=== PATIENT | male | born 1960 | race Caucasian/White ===

== ENCOUNTER 2020-08-29 07:33 | Day surgery (SDC) | payer OTHER, SELFPAY ==
--- NOTE | 2020-08-28 09:02 | HO.ANESPROP2 ---
Documented by User: Fatmata Chow 08/28/20 13:36 HPI - Anesthesia Eval Consult details Narrative: 59yo M for Colonoscopy COUNTS INCLUDE 234 BEDS AT THE [facility] Past Medical History Medical History Hearing loss Vertigo Surgical History Surgical History (Updated 08/29/20 @ 08:41 by Yahaira Thrasher) Status post colonoscopy Social History Social History (Updated 08/28/20 @ 11:59 by Mary Smith) Smoking Status: Never smoker Second Hand Smoke Exposure: No Use of substances other than those prescribed or required for medical reasons: No Advance Directives: No Advance Directives Information Provided: Yes Advance Directives on File: No Meds Allergies Allergy/AdvReac Type Severity Reaction Status Date / Time No Known Allergies Allergy Verified 08/28/20 11:58 Home Medications Medication Instructions Recorded Confirmed Type meclizine 1 tab PO TID PRN 08/28/20 08/28/20 History Exam Exam Date and Time: August 28, 2020901 Assessment and Plan Assessment Anesthesia Assessment: Chart Reviewed Documented by User: Yahaira Thrasher 08/29/20 08:47 COUNTS INCLUDE 234 BEDS AT THE [facility] Past Medical History Medical History Hearing loss Vertigo Family History Family history of problems with anesthesia: No Surgical History Surgical History (Updated 08/29/20 @ 08:41 by Yahaira Thrasher) Status post colonoscopy History of Problems with Anesthesia: No Social History Social History (Updated 08/28/20 @ 11:59 by Mary Smith) Smoking Status: Never smoker Second Hand Smoke Exposure: No Use of substances other than those prescribed or required for medical reasons: No Advance Directives: No Advance Directives Information Provided: Yes Advance Directives on File: No Meds Allergies Allergy/AdvReac Type Severity Reaction Status Date / Time No Known Allergies Allergy Verified 08/28/20 11:58 Home Medications Medication Instructions Recorded Confirmed Type meclizine 1 tab PO TID PRN 08/28/20 08/28/20 History Exam Height,Weight and Vital Signs: Vital Signs Temp Pulse Resp BP Pulse Ox 08/29/20 08:07 97.8 F 72 16 122/89 97 Airway Mallampati Class: II TM Dist: >3cm Loose/Missing/Broken Teeth: No (Crowns intact) Heart: RRR Lungs: CTAB Assessment and Plan Assessment Anesthesia Assessment: Anesthesia Plan Discussed and Chart Reviewed Final Anesthetic Review NPO: Yes ASA Class: II Final Preanesthetic Review: No Changes in Pt Med Stat, Meds/Allgs Chart Reviewed, Consent Obtained/Reviewed and Anes Risks/Benef Reviewed Patient Risk: Low Procedure Risk: Low Anesthetic Plan Anesthetic Plan: MAC: Disposition: Standard PACU
[2020-08-28 12:00] VITALS: BMI 29.7
--- NOTE | 2020-08-29 07:47 | P.HPSUR_ITS ---
Pre-Procedural Eval Section B Chief Complaint: SCREENING Relevant Family History (Specify if Yes): No Relevant Social History: None Present Medications: see Short Stay Collaborative assessment Medical History: Significant History (vertigo,hearing loss) History of Previous Operations: No relevant previous surgery Allergies: Allergies Allergy/AdvReac Type Severity Reaction Status Date / Time No Known Allergies Allergy Verified 08/28/20 11:58 Review of Systems Sugical H&P ROS: Negative: Constitution, Cardiovascular, Respiratory, Neurological, Psychiatric, Hem-Onc, Allergic/Immunologic, Gastrointestinal, Genitourinary, Musculoskeletal, Integumentary, Endocrine and Eyes/Ears/Nose/T hroat Exam Surgical H&P Exam: Normal: HEENT, Normal: Heart, Normal: Lungs, Normal: Extremities, Normal: Abdomen, Normal: Skin and Normal: Neurological Plan Diagnosis/Plan: Unchanged Patient has been examined and remains a candidate for the planned procedure
[2020-08-29] MEDS: Lactated Ringers 1,000 ML 100 ML IVCONT (08:02)
[2020-08-29 08:07] VITALS: BP 122/89; PULSE 72; RESP 16; TEMP 36.6; O2SAT 97
--- NOTE | 2020-08-29 08:55 | PM.OP ---
Brief Operative Note Date of Service: 08/29/20 Pre-op diagnosis: colon screen Post-op diagnosis: same Procedure: see op note Surgeon: Magdalena Em MD Anesthesia: MAC Estimated blood loss (mL): 0 Condition: stable Disposition: PACU
--- NOTE | 2020-08-29 08:56 | W.PM.OPN ---
Operative Note Operative Note Date of Service: 08/29/20 Narrative: Operative Information Procedure Description: Colonoscopy COLONOSCOPY Instrument: Olympus variable stiffness pediatric scope 190L Colonoscopy Monitoring: Vital signs and clinical assessment, continuous EKG monitoring, Pulse oximetry, Carbon Dioxide monitoring and blood pressure monitoring were done throughout the procedure. Colon withdrawal time was 7 minutes. Procedure: The patient was placed in the left lateral decubitis position and pre-procedure medications were administered. After a digital rectal examination of the ano-rectum, the video colonoscope was inserted into the rectum and advanced through the colon to the cecum/TI. The colonoscope was slowly withdrawn in a retrograde panoramic fashion and the colon mucosa was carefully examined including a retroflexed view of the rectum. Findings and interventions are described below. Procedure Difficulty:easy Findings: Terminal Ileum-normal Cecum:normal Ascending Colon: normal Transverse Colon -normal Descending Colon:normal Sigmoid Colon: normal Rectum: Retroflexion with small, mildly inflammed, internal hemorrhoids, grade 1 Anorectum - normal Colon preparation: [place] Bowel Preparation Scale Right colon; 3 Transverse colon: 3 Left colon; 3 (0 = Unprepared colon segment with mucosa not seen due to solid stool that cannot be cleared. 1 = Portion of mucosa of the colon segment seen, but other areas of the colon segment not well seen due to staining, residual stool and/or opaque liquid. 2 = Minor amount of residual staining, small fragments of stool and/or opaque liquid, but mucosa of colon segment seen well. 3 = Entire mucosa of colon segment seen well with no residual staining, small fragments of stool or opaque liquid) Impression and Post Procedure Diagnosis: internal hemorrhoids Plan: High fiber diet leaflet Avoid straining at stool, epsom salts and sitz bath, anusol supps or cream prn Repeat Colonoscopy in 10 years or earlier if clinically indicated Above findings were reviewed with the patient and relevant handouts were provided if indicated.
[2020-08-29 09:00] VITALS: BP 108/77; PULSE 72; RESP 16; TEMP 36.2; O2SAT 98
[2020-08-29 09:15] VITALS: BP 109/78; PULSE 69; RESP 16; TEMP 36.2; O2SAT 96
--- NOTE | 2020-08-29 09:40 | HO.POSTANES ---
Documented by User: Fatmata Chow 08/29/20 09:41 Post Anesthesia Evaluation Post Anesthesia Evaluation Vital Signs: Vital Signs Temp Pulse Resp BP Pulse Ox 08/29/20 09:15 97.2 F 69 16 109/78 96 08/29/20 09:00 97.2 F 72 16 108/77 98 08/29/20 08:07 97.8 F 72 16 122/89 97 Anesthesia: Monitored Mental Status: Awake Pain Control: Satisfactory Nausea/Vomiting: None Hydration: Adequate Anesthesia-Related Issues: No Anes. Related Issues
== END 2020-08-29 09:45 | disposition home or self-care (01) ==
PROVIDERS: Visit Provider Internal Medicine Gastroenterology
PROC: 0DJD8ZZ Inspection of Lower Intestinal Tract, Via Natural or Artificial Opening Endoscopic (ICD-10-PCS; CPT 45378; principal; 2020-08-29 08:30)
DX: Z12.11 Encounter for screening for malignant neoplasm of colon (principal); K64.0 First degree hemorrhoids
CPT/HCPCS: G0121

== ENCOUNTER → 2020-09-05 10:52 | Outpatient (BNVA) | payer OTHER, SELFPAY | PROVIDERS: PCP Nurse Practitioner Family; Visit Provider Physician Assistant | DX: K64.8 Other hemorrhoids (principal) | CPT/HCPCS: Q3014 ==

== ENCOUNTER → 2021-02-14 13:57 | Outpatient (BNVA) | payer SELFPAY | PROVIDERS: PCP Nurse Practitioner Family; Visit Provider Internal Medicine | DX: Z02.79 Encounter for issue of other medical certificate (principal) ==

== ENCOUNTER 2022-06-12 06:27 | Outpatient (REF) | payer OTHER, SELFPAY ==
[2022-06-12 11:13] LABS: MANUAL DIFF FLAG NO
[2022-06-12 11:23] LABS: Appearance Urine Turbid; Color Urine Yellow; Glucose Urine UA Negative (Negative); Leukocyte Esterase Urine Negative (Negative); Nitrite Urine Negative (Negative); PH 5.5 (5.0-9.0); Urine Blood Negative (Negative); Urine Ketones Negative (Negative); Urine Protein Negative (Neg-Trace)
[2022-06-12 11:25] LABS: Basophils Percent Auto 0.8 % (0-2); Eosinophils Absolute Auto 0.4 X10*3/uL (0.0-0.4); Eosinophils Percent Auto 7.5 % (0-4); Hematocrit 42.5 % (42.0-52.0); Hemoglobin 14.9 g/dl (14.0-18.0); Imm Gran Abs Auto 0.01 X10*3/uL (0.00-0.03); Imm Gran Pct Auto 0.2 % (0.0-0.4); Lymphocytes Absolute Auto 1.3 X10*3/uL (1.2-4.9); Lymphocytes Percent Auto 25.3 % (20-40); Mean Corpuscular HGB Conc 35.1 g/dl (31.0-36.0); Mean Corpuscular Hemoglobin 30.5 pg (27.0-33.0); Mean Corpuscular Volume 86.9 fL (80.0-98.0); Mean Platelet Volume 9.2 fL (9.4-12.4); Monocytes Absolute Auto 0.4 X10*3/uL (0.1-1.2); Monocytes Percent Auto 8.4 % (2-11); Neutrophils Absolute Auto 2.9 x10*3/uL (2.0-8.3); Neutrophils Percent Auto 57.8 % (45-73); Platelet Count 202 X10*3/uL (160-400); Red Blood Count 4.89 X10*6/uL (4.60-5.80); Red Cell Distribution Width 12.6 % (11.0-16.0); White Blood Count 5.1 X10*3/uL (4.8-10.8)
[2022-06-12 11:51] LABS: Alanine Aminotransferase 58 U/L (0-40); Albumin Level 4.4 g/dL (3.5-5.0); Alkaline Phosphatase 68 U/L (39-117); Anion Gap 14 (12-20); Aspartate Amino Transferase 44 U/L (5-37); Bilirubin Total 0.7 mg/dL (0.0-1.0); Blood Urea Nitrogen 20 mg/dL (9-16); Calcium 9.5 mg/dL (8.4-10.2); Carbon Dioxide 27 mmol/L (22-29); Chloride 103 mmol/L (96-108); Cholesterol 237 mg/dL; Estimated Glomerular Filt Rate > 60; Glucose Fasting 109 mg/dL (60-99); HDL Cholesterol 47 mg/dL; LDL Cholesterol Calculated 165 mg/dl; Potassium 3.9 mmol/L (3.3-5.1); Sodium 140 mmol/L (135-145); Total Protein 6.8 g/dL (6.5-8.0); Triglycerides 126 mg/dL
[2022-06-12 12:16] LABS: Prostate Specific Antigen Scr 0.93 ng/mL (<0.05-4.0); TSH reflex Free T4 2.56 uIU/mL (0.32-4.0)
== END 2022-06-12 06:28 | disposition home or self-care (01) ==
LOC: HO.HMGCLDS 06:27
PROVIDERS: PCP Nurse Practitioner Family; Visit Provider Nurse Practitioner Family
DX: Z12.5 Encounter for screening for malignant neoplasm of prostate (principal); I10 Essential (primary) hypertension
CPT/HCPCS: 36415; 80053; 80061; 81003; 84153; 84443; 85025

== ENCOUNTER 2022-06-18 06:01 | Outpatient (REF) | payer OTHER, SELFPAY ==
[2022-06-18 11:50] LABS: Cholesterol 228 mg/dL; HDL Cholesterol 44 mg/dL; LDL Cholesterol Calculated 158 mg/dl; Triglycerides 131 mg/dL
[2022-06-18 12:05] LABS: HBS Num1 1.29 mIU/mL (0-7.99); HBc Num1 0.15 S/CO (0.00-0.79); HBsAGNum1 0.17 S/CO (0.00-0.99); Hepatitis A Antibody IgM 0.46 Index (0-0.79); Hepatitis B Core Antibody Nonreactive (Nonreactive); Hepatitis B Surface Antigen Negative (Negative); ~HepC Num1 0.07 S/CO (0.00-0.79); ~Hepatitis A Antibody IgM Nonreactive (Nonreactive); ~Hepatitis B Surface Antibody NONREACTIVE (Nonreactive); ~Hepatitis C Antibody Nonreactive (Nonreactive)
== END 2022-06-18 06:02 | disposition home or self-care (01) ==
LOC: HO.HMGCLDS 06:01
PROVIDERS: PCP Nurse Practitioner Family; Visit Provider Nurse Practitioner Family
DX: R74.8 Abnormal levels of other serum enzymes (principal); E78.5 Hyperlipidemia, unspecified
CPT/HCPCS: 36415; 80061; 86704; 86706; 86709; 86803; 87340

== ENCOUNTER 2022-07-02 08:51 | Outpatient (REF) | payer OTHER, SELFPAY ==
--- NOTE | ~2022-07-02 | US_ITS ---
EXAMINATION: US ABDOMEN COMPLETE CLINICAL INFORMATION: Abnormal levels of other serum enzymes. COMPARISON: None TECHNIQUE: Real-time imaging of the abdominal viscera. FINDINGS: PANCREAS: Normal. ABDOMINAL AORTA: The proximal, mid, and distal segments are normal in caliber. INFERIOR VENA CAVA: Visualized portions are normal. LIVER: The liver is normal in size. The liver contour is normal. Liver echotexture is increased suggestive of fatty infiltration. There are hypoechoic areas adjacent to the gallbladder, characteristic location of focal fatty sparing. There is a 1.8 x 1.3 x 1.4 cm cyst in the left lobe of the liver. There is an irregularly-shaped hypoechoic area in the right lobe of the liver measuring 1.3 x 0.7 x 1 cm. It is uncertain whether this represents an atypical location or appearance of focal fatty sparing or represents liver lesion. There is no intrahepatic biliary duct dilatation seen. GALLBLADDER: Normal. The gallbladder is physiologically distended without evidence of stones, sludge, polyps, wall thickening or pericholecystic fluid. COMMON BILE DUCT: Normal in caliber measuring 0.4 cm in diameter. RIGHT KIDNEY: 1.6 cm cyst in the lower pole. No hydronephrosis or renal calculi. The kidney measures 13.1 cm in maximum dimension. LEFT KIDNEY: 2 cysts measuring 3.2 x 2.6 x 2.5 cm in the midpole and 1 cm in the lower pole. No hydronephrosis or renal calculi. The kidney measures 11.0 cm in maximum dimension. SPLEEN: Normal. The spleen measures 12.1 cm in maximum dimension. FREE FLUID: None. US/US abdomen complete IMPRESSION: Echogenic liver suggestive of fatty infiltration. 1.3 x 0.7 x 1 cm irregularly-shaped hypoechoic area in the right lobe, question atypical location of focal fatty sparing versus liver lesion. 1.8 x 1.3 x 1.4 cm left lobe liver cyst. This could be better evaluated with liver MRI. Bilateral renal cysts.
== END 2022-07-02 08:52 | disposition home or self-care (01) ==
LOC: HO.HMGCX 08:51
PROVIDERS: PCP Nurse Practitioner Family; Visit Provider Nurse Practitioner Family
DX: R74.8 Abnormal levels of other serum enzymes (principal); K76.9 Liver disease, unspecified
CPT/HCPCS: 76700

== ENCOUNTER 2022-07-30 08:05 | Outpatient (REF) | payer OTHER, SELFPAY ==
--- NOTE | ~2022-07-30 | MR_ITS ---
EXAMINATION: MR ABDOMEN WITHOUT AND WITH CONTRAST CLINICAL INFORMATION: Liver disease. COMPARISON: Previous abdominal ultrasound June 2022. TECHNIQUE: MR abdomen was performed without and with use of 10 mL intravenous Gadavist gadolinium contrast. Postcontrast images are performed in multiphase dynamic sequences. Imaging was performed in 3 planes. FINDINGS: LUNG BASES: The visualized lung bases are unremarkable. LIVER, GALLBLADDER, AND BILIARY TREE: The liver is upper normal in size, right lobe measuring 20 cm in length. The liver is normal in contour. There is heterogeneous signal loss in the liver on out of phase sequences suggestive of areas of fatty infiltration. There are several small cysts in the liver, largest measuring 1 cm in the left lobe. There is question of a small area of increased enhancement or enhancing lesion in the anterior segment of the right lobe of the liver measuring 4 to 5 mm, for example axial image 61 postcontrast series 101 and 102, possibly larger on noncontrast sequence measuring 1.3 cm. This is appreciated as an area of increased signal on out of phase sequences. This is not reliably identified on other precontrast sequences, arterial phase postcontrast or delayed phase postcontrast sequences. No other focal liver lesion. Normal gallbladder. No biliary duct dilatation. PANCREAS: Unremarkable. SPLEEN: Normal. ADRENAL GLANDS: Normal. KIDNEYS AND URETERS: The kidneys are normal in size, shape, and enhance symmetrically. There are bilateral renal simple cysts. The largest measures 3 cm in the left kidney. No hydronephrosis. No perinephric stranding. GASTROINTESTINAL TRACT: No bowel obstruction. No ascites or fluid collection. ABDOMINAL WALL: Small umbilical hernia containing fat. LYMPH NODES: No lymphadenopathy. VASCULAR: Unremarkable. OSSEOUS STRUCTURES: Marrow signal normal. MR/MR abdomen wo/w con IMPRESSION: Heterogeneous fatty infiltration of the liver. Multiple liver and bilateral renal cysts. Question focal lesion in the anterior segment of the right lobe of the liver appreciated on gradient echo out of phase precontrast sequences and some postcontrast sequences only. This is difficult to further characterize. Short-term follow-up ultrasound or MRI recommended.
== END 2022-07-30 08:06 | disposition home or self-care (01) ==
LOC: HO.MRI 08:05
PROVIDERS: Visit Provider Nurse Practitioner Family
DX: K76.9 Liver disease, unspecified (principal)
CPT/HCPCS: 74183; A9585

== ENCOUNTER → 2022-09-26 14:52 | Outpatient (BNVA) | payer OTHER, SELFPAY | PROVIDERS: PCP Nurse Practitioner Family; Visit Provider Urology | DX: N28.1 Cyst of kidney, acquired (principal) | CPT/HCPCS: 99202 ==

== ENCOUNTER 2022-12-03 06:03 | Outpatient (REF) | payer OTHER, SELFPAY ==
[2022-12-03 11:16] LABS: Appearance Urine Turbid; Color Urine Yellow; Glucose Urine UA Negative (Negative); Leukocyte Esterase Urine Negative (Negative); Nitrite Urine Negative (Negative); PH 5.5 (5.0-9.0); Specific Gravity - Urine 1.025 (1.005-1.025); Urine Blood Negative (Negative); Urine Ketones Negative (Negative); Urine Protein Negative (Neg-Trace)
[2022-12-03 11:22] LABS: MANUAL DIFF FLAG NO
[2022-12-03 11:46] LABS: Basophils Percent Auto 0.4 % (0-2); Eosinophils Absolute Auto 0.1 X10*3/uL (0.0-0.4); Hematocrit 42.6 % (42.0-52.0); Hemoglobin 14.9 g/dl (14.0-18.0); Imm Gran Abs Auto 0.01 X10*3/uL (0.00-0.03); Imm Gran Pct Auto 0.2 % (0.0-0.4); Lymphocytes Absolute Auto 1.4 X10*3/uL (1.2-4.9); Lymphocytes Percent Auto 30.5 % (20-40); Mean Corpuscular Volume 85.9 fL (80.0-98.0); Mean Platelet Volume 9.3 fL (9.4-12.4); Monocytes Absolute Auto 0.4 X10*3/uL (0.1-1.2); Monocytes Percent Auto 8.7 % (2-11); Neutrophils Absolute Auto 2.7 x10*3/uL (2.0-8.3); Neutrophils Percent Auto 57.2 % (45-73); Platelet Count 197 X10*3/uL (160-400); Red Blood Count 4.96 X10*6/uL (4.60-5.80); Red Cell Distribution Width 12.5 % (11.0-16.0); White Blood Count 4.7 X10*3/uL (4.8-10.8)
[2022-12-03 12:02] LABS: Alanine Aminotransferase 47 U/L (0-40); Albumin Level 4.2 g/dL (3.5-5.0); Alkaline Phosphatase 66 U/L (39-117); Anion Gap 11 (12-20); Aspartate Amino Transferase 28 U/L (5-37); Bilirubin Total 0.7 mg/dL (0.0-1.0); Blood Urea Nitrogen 21 mg/dL (9-16); Calcium 8.9 mg/dL (8.4-10.2); Carbon Dioxide 28 mmol/L (22-29); Chloride 106 mmol/L (96-108); Cholesterol 225 mg/dL; Estimated Glomerular Filt Rate > 60; Glucose Fasting 101 mg/dL (60-99); HDL Cholesterol 46 mg/dL; LDL Cholesterol Calculated 164 mg/dl; Sodium 141 mmol/L (135-145); Total Protein 6.4 g/dL (6.5-8.0); Triglycerides 77 mg/dL
[2022-12-03 12:07] LABS: TSH reflex Free T4 2.47 uIU/mL (0.32-4.0)
== END 2022-12-03 06:04 | disposition home or self-care (01) ==
LOC: HO.HMGCLDS 06:03
PROVIDERS: PCP Nurse Practitioner Family; Visit Provider Nurse Practitioner Family
DX: Z00.00 Encounter for general adult medical examination without abnormal findings (principal)
CPT/HCPCS: 36415; 80053; 80061; 81003; 84443; 85025

== ENCOUNTER 2022-12-03 11:16 | Outpatient (REF) | payer OTHER, SELFPAY ==
--- NOTE | ~2022-12-03 | MR_ITS ---
EXAMINATION: MRI ABDOMEN WITH AND WITHOUT CONTRAST CLINICAL INFORMATION: K76.9 - Liver disease, unspecified COMPARISON: 07/30/2022 MRI TECHNIQUE: Multiple routine MRI sequences through the abdomen were obtained on a high-field 1.5Tesla MRI. Pre-and postcontrast images with 10 mL of Gadavist intravenous contrast were obtained. This included a dynamic contrast-enhanced technique. FINDINGS: Lung bases: The visualized lung bases are unremarkable. Liver: There is mild diffuse fatty infiltration of the liver with focal fatty sparing adjacent to the gallbladder fossa. T2 bright simple appearing cysts are seen more so along the anterior subcapsular aspect of segment 2 of the liver and in the anterior aspect of segment 8. There is a subtle arterial phase enhancing 0.6 cm region in the lateral right lobe of the liver. This was seen on the prior study as well and is not significantly changed in size. There is subtle enhancement in this region seen on later phases of contrast as well. No suspicious washout identified. No new lesions appreciated Gallbladder: Gallbladder is unremarkable. No suspicious gallstones or filling defects. No gallbladder wall thickening or pericholecystic inflammatory changes. Pancreas: Pancreas is homogeneous in signal. No pancreatic ductal dilatation or obstruction. No peripancreatic inflammatory changes or fluid. Spleen: Unremarkable Adrenals: Unremarkable Kidneys: Kidneys are normal in size, shape, and signal. T2 bright nonenhancing simple appearing bilateral renal cysts are seen. No further evaluation of these cysts is needed. No suspicious renal mass lesion seen. No hydronephrosis or perinephric edema. Other: No bulky hilar or mediastinal adenopathy MR/MR abdomen wo/w con IMPRESSION: 1. Overall no significant change from the prior study. There is a nonspecific subtle 0.6 cm arterial phase enhancing region in the lateral right lobe of the liver. This is not significantly changed in size from the prior study but difficult to define more due to its tiny size. This could represent a small vascular malformation or possibly a small focal nodular hyperplasia. The relative stability since 07/30/2022 suggests a more indolent process. Continued follow-up to assure stability over time be recommended. 2. Diffuse fatty infiltration of the liver. 3. Chronic appearing changes otherwise as described above.
== END 2022-12-03 11:17 | disposition home or self-care (01) ==
LOC: HO.MRI 11:16
PROVIDERS: PCP Nurse Practitioner Family; Visit Provider Nurse Practitioner Family
DX: K76.9 Liver disease, unspecified (principal)
CPT/HCPCS: 74183; A9585

== ENCOUNTER → 2023-01-28 10:51 | Outpatient (BNVA) | payer SELFPAY | PROVIDERS: PCP Nurse Practitioner Family; Visit Provider Physician Assistant | DX: Z02.79 Encounter for issue of other medical certificate (principal) ==

== ENCOUNTER 2023-04-16 12:19 | Outpatient (AMB) | payer OTHER, SELFPAY ==
--- NOTE | 2023-04-16 12:23 | A.OFFVIS_ITS ---
Intake Vital Signs 04/16/23 12:24 Height 5 ft 9.5 in Weight 208 lb BMI 30.3 BP 128/77 Blood Pressure Location Lt brachial Position Sitting Pulse 98 Intake Visit Reasons: Liver disease, unspecified Intake Note: Patient follow up for liver disease and MRI results. patient cc: vomit on and off because his dizziness, denies any GI issues. 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 He says he just began med for cholesterol his biggest c/o is - ear fullness Effects his hearing-this makes him feel off uses meclizine from time to time-has upcoming appointment with ENT for further eval No GI complaints Appetite very good- normal bowels No nausea, vomiting, abdominal pain fever or chills PFSH Medical History Hearing loss Internal hemorrhoids Vertigo Surgical History Status post colonoscopy Social History Housing: House Patient Tobacco Use Status: Never used Tobacco e-Cigarette/Vaping Use: Never Used Second Hand Smoke Exposure: No Current occupational status: employed Current occupation: [employer] Cognitive needs: No Hearing needs: No Vision needs: No Review of Systems Const All systems reviewed & are unremarkable except as noted in HPI and below ENT Reports vertigo, Reports otalgia, Denies mouth lesions, Denies nasal discharge, Denies odynophagia, Denies sinus pressure, Denies sore throat and Denies throat swelling Card Denies chest pain and Denies dyspnea Resp Denies dyspnea GI Denies abdominal pain, Denies change in bowel habits, Denies heartburn and Denies odynophagia Neuro Reports vertigo Aller/Immun Denies throat swelling Physical Exam Vital Signs: Last Vital Signs Pulse 98 04/16/23 12:24 BP 128/77 04/16/23 12:24 BMI result Body Mass Index 30.3 Const General: cooperative, healthy appearing, comfortable and no acute distress Orientation/consciousness: patient oriented x3 Limitations: no limitations Resp Effort & Inspection: normal respiratory effort and able to speak in complete sentences Auscultation: clear to auscultation bilaterally Cardio Rate: regular rate Rhythm: regular rhythm Heart sounds: S1 normal heart sound present and S2 normal heart sound present Neuro General: patient oriented x3 Extrem General: Yes full ROM Psych Appearance: grossly normal and well kempt Mental Status: mental status grossly normal Speech and movement: Normal speech and movement present and Clear speech present Affect: normal affect Attitude: cooperative Thought process: Normal thought process present Thought content: Normal thought content present Insight: Good insight present (Psych) Judgement: Good judgement present (Psych) Results Reviewed Results Reviewed: 12.08.22 MR/MR abdomen wo/w con IMPRESSION: 1.? Overall no significant change from the prior study. There is a nonspecific subtle 0.6 cm arterial phase enhancing region in the lateral right lobe of the liver. This is not significantly changed in size from the prior study but difficult to define more due to its tiny size. This could represent a small vascular malformation or possibly a small focal nodular hyperplasia. The relative stability since 07/30/2022 suggests a more indolent process. Continued follow-up to assure stability over time be recommended. 2.? Diffuse fatty infiltration of the liver. 3.? Chronic appearing changes otherwise as described above. ? ALT-47 MR/MR abdomen wo/w con IMPRESSION: Heterogeneous fatty infiltration of the liver. Multiple liver and bilateral renal cysts. Question focal lesion in the anterior segment of the right lobe of the liver appreciated on gradient echo out of phase precontrast sequences and some postcontrast sequences only. This is difficult to further characterize. Short-term follow-up ultrasound or MRI recommended. ALT/AST-44/58 US/US abdomen complete IMPRESSION: Echogenic liver suggestive of fatty infiltration. 1.3 x 0.7 x 1 cm irregularly-shaped hypoechoic area in the right lobe, question atypical location of focal fatty sparing versus liver lesion. 1.8 x 1.3 x 1.4 cm left lobe liver cyst. This could be better evaluated with liver MRI. Bilateral renal cysts. Assessment & Plan Assessment & Plan (1) Fatty liver: Code(s): K76.0 - Fatty (change of) liver, not elsewhere classified (2) Elevated liver enzymes: Comment: MLC with fatty liver Continue usual medication Dietary lifestyle modification Avoid weight Keep good cholesterol and glucose control Code(s): R74.8 - Abnormal levels of other serum enzymes Plan: MLC with fatty liver Plan Await T- for imaging update labs as well in May/jun Orders: Orders Liver Fibrosis Pnl 2 Months K76.0 - Fatty (change of) liver, not elsewhere classified, R74.8 - Abnormal levels of other serum enzymes Lipid Panel 2 Months K76.0 - Fatty (change of) liver, not elsewhere classified Liver Panel 2 Months K76.0 - Fatty (change of) liver, not elsewhere classified, R74.8 - Abnormal levels of other serum enzymes Complete Blood Count Auto Diff 2 Months K76.0 - Fatty (change of) liver, not elsewhere classified, R74.8 - Abnormal levels of other serum enzymes GRAHAM Reflex Titer and Pattern 2 Months R74.01 - Elevation of levels of liver transaminase levels Patient Instructions: MLC with fatty liver Continue usual medication Dietary lifestyle modification Avoid weight Keep good cholesterol and glucose control Repeat imaging update blood work at that time as well Coding Level of Care Code New Pt Level 3 (61584) Diagnoses Fatty liver K76.0 Elevated liver enzymes R74.8 Time Spent (min) 30
[2023-04-16 12:24] VITALS: BP 128/77; PULSE 98; BMI 30.3
== END 2023-04-16 13:50 | disposition home or self-care (01) ==
PROVIDERS: PCP Nurse Practitioner Family; Visit Provider Physician Assistant
DX: K76.0 Fatty (change of) liver, not elsewhere classified (principal); R74.8 Abnormal levels of other serum enzymes
CPT/HCPCS: 99214

== ENCOUNTER → 2023-04-16 12:19 | Outpatient (BNVA) | payer OTHER, SELFPAY | PROVIDERS: PCP Nurse Practitioner Family; Visit Provider Physician Assistant | DX: K76.0 Fatty (change of) liver, not elsewhere classified (principal); R74.8 Abnormal levels of other serum enzymes | CPT/HCPCS: 99212 ==

== ENCOUNTER 2023-07-13 07:24 | Outpatient (REF) | payer OTHER, SELFPAY ==
--- NOTE | ~2023-07-13 | MR_ITS ---
EXAMINATION: MR ABDOMEN WITHOUT AND WITH CONTRAST CLINICAL INFORMATION: Follow-up liver lesion. COMPARISON: 12/03/2022 and 07/30/2022 TECHNIQUE: MR abdomen was performed without and with use of 10 mL intravenous Gadavist gadolinium contrast. Postcontrast images are performed in multiphase dynamic sequences. Imaging was performed in 3 planes. FINDINGS: LUNG BASES: The visualized lung bases are unremarkable. LIVER, GALLBLADDER, AND BILIARY TREE: The liver is normal in size and contour. Hepatic steatosis. T2 bright simple appearing cysts are seen more so along the anterior subcapsular aspect of segment 2 of the liver and in the anterior aspect of segment 8. There is a subtle arterial phase enhancing 0.6 cm focus in the lateral right lobe of the liver. This was seen on the prior studies as well and is not significantly changed in size or morphology. The focus retains contrast on later phases as well. No suspicious washout identified. No new lesions appreciated. No biliary ductal dilatation is present. The gallbladder is unremarkable with no evidence of gallbladder wall thickening, or obvious pericholecystic inflammatory changes. PANCREAS: No ductal dilatation. SPLEEN: Not enlarged. ADRENAL GLANDS: No adrenal mass. KIDNEYS AND URETERS: The kidneys are symmetric in size and enhancement. Bilateral renal cysts. No further imaging follow-up is needed. No hydronephrosis. No perinephric stranding. GASTROINTESTINAL TRACT: Imaged loops of small and large bowel are nonobstructed. LYMPH NODES: No bulky abdominal lymphadenopathy. VASCULAR: Normal caliber abdominal aorta. MR/MR abdomen wo/w con IMPRESSION: Stable 0.6 cm arterial phase enhancing region in the lateral right lobe of the liver. This could represent a perfusion anomaly or vascular malformation or perhaps a small focal nodular hyperplasia. The relative stability since 07/30/2022 suggests a more indolent process. Follow-up as clinically indicated.
[2023-07-13] MEDS: gadobutroL 10 ML VIAL IVPUSH (08:29)
== END 2023-07-13 07:25 | disposition home or self-care (01) ==
LOC: HO.MRI 07:24
PROVIDERS: PCP Nurse Practitioner Family; Visit Provider Physician Assistant
DX: K76.9 Liver disease, unspecified (principal); R74.8 Abnormal levels of other serum enzymes; K76.0 Fatty (change of) liver, not elsewhere classified
CPT/HCPCS: 74183; A9585

== ENCOUNTER 2023-07-23 08:22 | Outpatient (AMB) | payer OTHER, SELFPAY ==
--- NOTE | 2023-07-23 08:24 | MHC.PC.OV ---
Vital Signs 07/23/23 08:26 Weight 217 lb BP 110/72 Blood Pressure Location Rt brachial Position Sitting Pulse 77 Pulse Source Pulse Oximeter Pulse Oximetry (%) 100 Oxygen Delivery Method Room Air Intake Visit Reasons: 6 month follow up Allergies No Known Allergies Allergy (Verified 07/23/23 08:27) Tobacco use date assessed: 10/15/22 HPI 6 month follow up HPI Details Dyslipidemia: On rosuvastatin 5mg. Will order labs. Denies chest pain, shortness of breath, and dizziness. Pt is following up with ENT due to menieres. Pt is requesting a referral to [facility] for specific hearing aids, will refer. Pt will be trying for early shelter disability. Will gladly fill out paperwork for this. [facility] Medical History (Updated 07/23/23 @ 08:50 by ANGELA Bell) Internal hemorrhoids Vertigo Hearing loss Surgical History Status post colonoscopy Social History Housing: House Patient Tobacco Use Status: Never used Tobacco e-Cigarette/Vaping Use: Never Used Second Hand Smoke Exposure: No Current occupational status: employed Current occupation: [employer] Cognitive needs: No Hearing needs: No Vision needs: No Questionnaire Thrive Questionnaire Date Thrive assessed: 10/15/22 MILENA-7 AMB Questionnaire MILENA-7 Date MILENA - 7 assessed: 10/15/22 Source: Developed by Drs. Glen Gomez, Ana Maria Taylor, Lance Tobias and colleagues, with an educational nahomy from [employer]. Review of Systems Const Reports as per HPI Physical exam (Primary Care) Vital Signs: Last Vital Signs Pulse 77 07/23/23 08:26 BP 110/72 07/23/23 08:26 Pulse Ox 100 07/23/23 08:26 Oxygen Delivery Method Room Air 07/23/23 08:26 Tobacco/Smoking Status: Tobacco use Status Tobacco use date assessed 10/15/22 07/23/23 08:25 Patient Tobacco Use Status Never used Tobacco 07/23/23 08:25 e-Cigarette/Vaping Use Never Used 07/23/23 08:25 Thrive Assessment: Date of Thrive Assessment Date Thrive assessed 10/15/22 07/23/23 08:25 Const General: cooperative Orientation/consciousness: patient oriented x3 Resp Effort & Inspection: normal respiratory effort Auscultation: clear to auscultation bilaterally Cardio Rate: regular rate Rhythm: regular rhythm Heart sounds: S1 normal heart sound present and S2 normal heart sound present Neuro General: patient oriented x3 Psych Appearance: grossly normal Mental Status: mental status grossly normal Speech and movement: Normal speech and movement present Affect: normal affect Attitude: cooperative Thought process: Normal thought process present Thought content: Normal thought content present Insight: Good insight present (Psych) Judgement: Good judgement present (Psych) Assessment and Plan Assessment & Plan (1) Dyslipidemia: Code(s): E78.5 - Hyperlipidemia, unspecified Plan: Labs ordered (2) Screening PSA (prostate specific antigen): Code(s): Z12.5 - Encounter for screening for malignant neoplasm of prostate Plan: PSA ordered (3) 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 Scribed for ANGELA Gregory by Katy Green medical staff services manager, on 07/23/2023 at 08:35 EST. Orders: Orders Complete Blood Count Auto Diff Today E78.5 - Hyperlipidemia, unspecified Lipid Panel Today E78.5 - Hyperlipidemia, unspecified Comprehensive [place]. Panel Fast Today E78.5 - Hyperlipidemia, unspecified TSH reflex Free T4 Today E78.5 - Hyperlipidemia, unspecified Prostate Specific Antigen Scr Today Z12.5 - Encounter for screening for malignant neoplasm of prostate Referrals Speech and Hearing Referral H81.09 - Meniere's disease, unspecified ear, H91.90 - Unspecified hearing loss, unspecified ear Coding Level of Care Code Est Pt Level 3 (04736) Diagnoses Dyslipidemia E78.5 Screening PSA (prostate specific antigen) Z12.5 Menieres disease H81.09 Hearing loss H91.90
[2023-07-23 08:26] VITALS: BP 110/72; PULSE 77; O2SAT 100
== END 2023-07-23 08:58 | disposition home or self-care (01) ==
PROVIDERS: PCP Nurse Practitioner Family; Visit Provider Nurse Practitioner Family
DX: E78.5 Hyperlipidemia, unspecified (principal); Z12.5 Encounter for screening for malignant neoplasm of prostate; H81.09 Meniere's disease, unspecified ear; H91.90 Unspecified hearing loss, unspecified ear
CPT/HCPCS: 99213

== ENCOUNTER 2023-07-23 09:00 | Outpatient (REF) | payer OTHER, SELFPAY ==
[2023-07-23 11:26] LABS: MANUAL DIFF FLAG NO
[2023-07-23 11:35] LABS: Basophils Percent Auto 0.6 % (0-2); Eosinophils Absolute Auto 0.2 X10*3/uL (0.0-0.4); Hematocrit 46.6 % (42.0-52.0); Hemoglobin 16.3 g/dl (14.0-18.0); Imm Gran Abs Auto 0.03 X10*3/uL (0.00-0.03); Imm Gran Pct Auto 0.5 % (0.0-0.4); Lymphocytes Absolute Auto 1.7 X10*3/uL (1.2-4.9); Lymphocytes Percent Auto 26.9 % (20-40); Mean Corpuscular Volume 85.8 fL (80.0-98.0); Mean Platelet Volume 9.1 fL (9.4-12.4); Monocytes Absolute Auto 0.6 X10*3/uL (0.1-1.2); Monocytes Percent Auto 8.6 % (2-11); Neutrophils Absolute Auto 3.9 x10*3/uL (2.0-8.3); Neutrophils Percent Auto 60.4 % (45-73); Platelet Count 218 X10*3/uL (160-400); Red Blood Count 5.43 X10*6/uL (4.60-5.80); Red Cell Distribution Width 12.6 % (11.0-16.0); White Blood Count 6.4 X10*3/uL (4.8-10.8)
[2023-07-23 12:07] LABS: Alanine Aminotransferase 46 U/L (0-40); Albumin Level 4.5 g/dL (3.5-5.0); Alkaline Phosphatase 70 U/L (39-117); Anion Gap 11 (12-20); Aspartate Amino Transferase 29 U/L (5-37); Bilirubin Total 0.7 mg/dL (0.0-1.0); Blood Urea Nitrogen 19 mg/dL (9-16); Calcium 10.1 mg/dL (8.4-10.2); Carbon Dioxide 30 mmol/L (22-29); Chloride 104 mmol/L (96-108); Cholesterol 204 mg/dL (<200); Estimated Glomerular Filt Rate > 60; Glucose Fasting 103 mg/dL (60-99); HDL Cholesterol 42 mg/dL (>40); LDL Cholesterol Calculated 115 mg/dL (<100); Potassium 4.5 mmol/L (3.3-5.1); Sodium 140 mmol/L (135-145); Total Protein 7.4 g/dL (6.5-8.0); Triglycerides 238 mg/dL (<150)
[2023-07-23 12:14] LABS: Prostate Specific Antigen Scr 1.41 ng/mL (<0.05-4.0)
[2023-07-23 12:26] LABS: TSH reflex Free T4 2.98 uIU/mL (0.32-4.0)
== END 2023-07-23 09:01 | disposition home or self-care (01) ==
LOC: HO.HMGCLDS 09:00
PROVIDERS: PCP Nurse Practitioner Family; Visit Provider Nurse Practitioner Family
DX: Z12.5 Encounter for screening for malignant neoplasm of prostate (principal); E78.5 Hyperlipidemia, unspecified
CPT/HCPCS: 36415; 80053; 80061; 84153; 84443; 85025

== ENCOUNTER 2023-08-20 14:35 | Outpatient (REF) | payer OTHER, SELFPAY ==
--- NOTE | 2023-08-21 11:26 | MHC.AU.HA1 ---
Hearing Aid Evaluation Date of Visit: 08/20/23 Historical Information: Description of Hearing: Right ear: Mild sloping to profound sensorineural hearing loss Left ear: Moderately severe-moderate sensorineural hearing loss Summary: Oliverio is here for hearing aid evaluation after seeing ENT due to a sudden change in his left ear hearing last year. He reports a diagnosis of Meniere's, with fluctuating hearing and significant aural fullness as well as tinnitus. He reportedly tried a pair of hearing aids from [employer] in the past but returned them. BiCros was recommended by Dr Quiroz. Discussed options, selected Phonak Audeo L70 R bicros in [facility]. Reportedly eligible for [facility] as of 08/21, will verify before moving forward. Hearing Aid Prescription: Based on the individual?s shared listening needs, communication environments, dexterity, desire for connectivity, and personal preferences, the following prescription for amplification has been made: Right ear: Make, Model, Color: Phonak Audeo L70 R-T Battery Size: Rechargeable Switch Operators Supervisor/Slim Tube: 2 Type of Earmold/Dome/CShell/SlimTip: med closed Left ear: Left ear prescription to be same as Right Hearing Aid above: Make, Model, Color: Phonak Audeo L CROS Battery Size: Rechargeable Switch Operators Supervisor/Slim Tube: 2 Type of Earmold/Dome/CShell/SlimTip: med open Plan of Care: Patient wishes to purchase hearing aids as prescribed Action Taken/Action Needed: Hearing Instrument Fitting to be scheduled when materials arrive Primary Diagnosis: H90.3 Bilateral Sensorineural Hearing Loss Signature: Provider: Max Peterson, [facility]
== END 2023-08-20 14:36 | disposition home or self-care (01) ==
LOC: HO.HAP 14:35
PROVIDERS: Visit Provider Nurse Practitioner Family
DX: Z13.89 Encounter for screening for other disorder (principal)

== ENCOUNTER 2023-09-03 15:14 | Outpatient (REF) | payer OTHER, SELFPAY ==
--- NOTE | 2023-09-04 08:25 | MHC.AU.HA2 ---
Hearing Instrument Fitting- Adult- Binaural Date of Visit: 09/03/23 Hearing Instruments Dispensed: Right Ear: Make, Model, Color, Serial Number: Shiv Arroyo L70-RT SN: [id number] Color: [employer] Talent Development Consultant Repair Warranty: 11/23/2026 Talent Development Consultant Loss and Damage Warranty: 11/23/2026 [facility] Service Plan: 09/03/2024 Battery Size: Rechargeable Principal Security Architect/Slim Tube: 2M Earmold/Dome/CShell/SlimTip: Medium closed dome (no retention tail) Type of Wax Guard: CeruShield Left Ear: Make, Model, Color, Serial Number: Shiv Arroyo CROS-L SN: [id number] Color: [employer] Talent Development Consultant Repair Warranty: 11/23/2026 Talent Development Consultant Loss and Damage Warranty: 11/23/2026 [facility] Service Plan: 09/03/2024 Battery Size: Rechargeable Principal Security Architect/Slim Tube: 2C Earmold/Dome/CShell/SlimTip: Medium open dome (no retention tail) Type of Wax Guard: CeruShield Accessories/Assistive Technology: Phonak Mercury Purifier Ease SN: [id number] Summary of Fitting: Ran feedback analyzer and real ear measures. Good match to target until about 2 kHz due to limits of feedback curve. May want to consider ear mold in future. Decreased overall gain slightly due to perceived loudness. Discussed care, use, and rechargeability including manually turning on/off, volume control use, and changing domes and wax guards. Practiced insertion and removal. Explained benefits of the CROS device and how it works as well as importance of daily, consistent use and acclimatization period. Paired to cell phone but not [employer] jenny. Recommendations: A hearing instrument follow-up was scheduled. Diagnosis Code(s): Primary Diagnosis: H90.3 Bilateral Sensorineural Hearing Loss Signature: Provider: Samia Tucker, [facility]
== END 2023-09-03 15:15 | disposition home or self-care (01) ==
LOC: HO.HAP 15:14
PROVIDERS: Visit Provider Nurse Practitioner Family
DX: Z46.1 Encounter for fitting and adjustment of hearing aid (principal); H90.3 Sensorineural hearing loss, bilateral
CPT/HCPCS: V5011; V5020; V5221; V5240

== ENCOUNTER 2023-09-11 07:51 | Outpatient (REF) | payer OTHER, SELFPAY ==
--- NOTE | 2023-09-11 08:43 | MHC.AU.HA3 ---
Hearing Instrument Follow-Up- Binaural Date of Visit: 09/11/23 Right Ear: Juan, Model, Color, Serial Number: Shiv Arroyo L70-RT SN: [id number] Color: [employer] Rn Lactation Repair Warranty: 11/23/2026 Rn Lactation Loss and Damage Warranty: 11/23/2026 [facility] Service Plan: 09/03/2024 Battery Size: Rechargeable Percussion Instructor/Slim Tube: 2M Earmold/Dome/CShell/SlimTip:Medium closed dome (no retention tail) Type of Wax Guard: CeruShield Dispensed By: [facility] Date of Fittin09/03/2023 Left Ear: Juan, Model, Color, Serial Number: Shiv Arroyo CROS-L SN: [id number] Color: [employer] Rn Lactation Repair Warranty: 11/23/2026 Rn Lactation Loss and Damage Warranty: 11/23/2026 [facility] Service Plan: 09/03/2024 Battery Size: Rechargeable Percussion Instructor/Slim Tube: 2C Earmold/Dome/CShell/SlimTip: Medium open dome (no retention tail) Type of Wax Guard: CeruShield Dispensed By: [facility] Date of Fittin09/03/2023 Follow-Up Summary: Oliverio reported that all voices sound like they inhaled helium. Although he has noticed improvement in his speech understanding, he is distracted by the overall sound quality, especially while watching television or listening to the radio. Data logging showed about 10 hours of use per day. Decreased high frequencies with noted improvement of sound quality in office. Discussed the balance between audibility and comfort and reexplained acclimatization period. Also increased noise management settings in [id number] and [id number] programs due to overwhelming background noise in restaurants. Paired hearing aid to [employer] jenny and instructed on use for changing programs as needed. Recommendations: An additional follow-up was scheduled to monitor progress. Diagnosis Code(s): Primary Diagnosis: H90.3 Bilateral Sensorineural Hearing Loss Signature: Provider: Samia Tucker, [facility]
== END 2023-09-11 07:52 | disposition home or self-care (01) ==
LOC: HO.HAP 07:51
PROVIDERS: Visit Provider Nurse Practitioner Family
DX: Z13.89 Encounter for screening for other disorder (principal)

== ENCOUNTER 2023-09-25 07:59 | Outpatient (REF) | payer OTHER, SELFPAY ==
--- NOTE | 2023-09-25 09:11 | MHC.AU.HA3 ---
Hearing Instrument Follow-Up- Binaural Date of Visit: 09/25/23 Right Ear: Juan, Model, Color, Serial Number: Shiv Masto L70-RT SN: [id number] Color: [employer] Repair Warranty: 11/23/2026 [employer] Loss and Damage Warranty: 11/23/2026 [facility] Service Plan: 09/03/2024 Battery Size: Rechargeable Radiagraph Operator/Slim Tube: 2M Earmold/Dome/CShell/SlimTip:Medium closed dome (no retention tail) Type of Wax Guard: CeruShield Dispensed By: [facility] Date of Fittin09/03/2023 Left Ear: Juan, Model, Color, Serial Number: Shiv Arroyo CROS-L SN: [id number] Color: [employer] Repair Warranty: 11/23/2026 [employer] Loss and Damage Warranty: 11/23/2026 [facility] Service Plan: 09/03/2024 Battery Size: Rechargeable Radiagraph Operator/Slim Tube: 2C Earmold/Dome/CShell/SlimTip: Medium open dome (no retention tail) Type of Wax Guard: CeruShield Dispensed By: [facility] Date of Fittin09/03/2023 Follow-Up Summary: Oliverio reported that since the adjustments made at the last appointment, he has noticed an improvement in the overall sound quality. However, he recently saw Dr. Quiroz at [facility] and had an updated hearing test. Dr. Quiroz reportedly recommended trying a hearing aid on the left ear instead of a CROS due to improvement in speech discrimination. Discussed severity of hearing loss, still poor speech discrimination in left ear (50%), possibility of binaural interference, and need for custom ear mold; however, Oliverio wanted to trial a loaner hearing aid on the left ear at Dr. Quiroz's recommendation. Programmed an Audeo L70-R Trial device with a 2P data processor and small power dome to initial fit settings. Decreased overall gain slightly in both hearing aids due to perceived loudness. Oliverio has his left CROS to hold for now. Scheduled follow up to discuss experience and decide which configuration (BiCROS vs bilateral hearing aids) he prefers. Recommendations: An additional follow-up was scheduled to monitor progress. Diagnosis Code(s): Primary Diagnosis: H90.3 Bilateral Sensorineural Hearing Loss Signature: Provider: Samia Tucker, [facility]
== END 2023-09-25 08:00 | disposition home or self-care (01) ==
LOC: HO.HAP 07:59
PROVIDERS: Visit Provider Nurse Practitioner Family
DX: Z13.89 Encounter for screening for other disorder (principal)

== ENCOUNTER 2023-11-02 13:56 | Outpatient (REF) | payer OTHER, SELFPAY ==
--- NOTE | 2023-11-03 08:20 | MHC.AU.HA2 ---
Hearing Instrument Fitting- Adult- Binaural Date of Visit: 11/02/23 Hearing Instruments Dispensed: Right Ear: Make, Model, Color, Serial Number: Shiv Arroyo L70-RT SN: [id number] Color: [employer] Architecture Internship Repair Warranty: 11/23/2026 Architecture Internship Loss and Damage Warranty: 11/23/2026 [facility] Service Plan: 09/03/2024 Battery Size: Rechargeable Medical Staffing Coordinator/Slim Tube: 2M Earmold/Dome/CShell/SlimTip: Medium closed dome (no retention tail) Type of Wax Guard: CeruShield Left Ear: Make, Model, Color, Serial Number: Shiv Arroyo L70-RT SN: [id number] Color: [employer] Architecture Internship Repair Warranty: 11/19/2026 Architecture Internship Loss and Damage Warranty: 11/19/2026 [facility] Service Plan: 11/02/2024 Battery Size: Rechargeable Medical Staffing Coordinator/Slim Tube: 2P Earmold/Dome/CShell/SlimTip: Small power dome (no retention tail) Type of Wax Guard: CeruStop Accessories/Assistive Technology: Machine Bander And Cellophaner Helper SN: [id number] Summary of Fitting: Fit new left hearing aid. Returned loaner and CROS. CROS sent back to [email or web address] for credit. Ran feedback analyzer and real ear measures on left hearing aid at 100% gain level. Significantly underfit; however, did not make adjustments to meet target as Oliverio already reported left hearing aid too loud with helium-like sound. Explained need for custom ear mold and increasing gain for optimal hearing. Oliverio understood; however, he was comfortable with settings that were on loaner although slightly too loud and did not want significant changes. Decreased back to 90% gain level and increased low frequencies slightly. Provided one package of small power domes and one package of CeruStops. Planning to change right social media senior associate to new 2M, 5 social media senior associate to have same wax guard as left hearing aid but did not have any in stock. Oliverio is comfortable with two different wax guards. Will change in future at next appointment, if Oliverio prefers. Recommendations: Patient does not feel follow-up is necessary at this time. Hearing Instrument maintenance in 6 months, or sooner if needed. Please call our clinic with any questions or concerns. Diagnosis Code(s): Primary Diagnosis: H90.3 Bilateral Sensorineural Hearing Loss Signature: Provider: Samia Tucker, [facility]
== END 2023-11-02 13:57 | disposition home or self-care (01) ==
LOC: HO.HAP 13:56
PROVIDERS: Visit Provider Nurse Practitioner Family
DX: Z13.89 Encounter for screening for other disorder (principal)

== ENCOUNTER 2023-12-09 15:03 | Outpatient (AMB) | payer OTHER, SELFPAY ==
--- NOTE | 2023-12-09 15:09 | MHC.PC.OV ---
Vital Signs 12/09/23 15:10 Height 5 ft 9.5 in Weight 223 lb BMI 32.5 BP 120/68 Blood Pressure Location Lt brachial Position Sitting Pulse 78 Pulse Source Pulse Oximeter Pulse Oximetry (%) 98 Oxygen Delivery Method Room Air Intake Visit Reasons: 3 month fu Intake Note: pt is here for 3 month follow up Matrix Inspector Required: No Accompanied by: Self / Same As Patient Allergies No Known Allergies Allergy (Verified 12/09/23 17:20) Medication List - Last Reconciled 12/09/23 by ANGELA Bell magnesium oxide 400 mg PO DAILY riboflavin (vitamin B2) 400 mg PO DAILY Tobacco use date assessed: 12/09/23 Dental Screening Dental Screen Date: 12/09/23 Did you have a dental visit in the last 12 months?: Yes Did you have a dental problem in the last 6 months where you did not have access to dental care?: No Was dental information given to patient?: Patient has dentist HPI 3 month fu HPI Details Dyslipidemia: Pt was taking rosuvastatin 10mg but stopped this due to muscle aches. Will order labs. Pt reports that he has been working on his diet. Denies chest pain, shortness of breath, and dizziness. [facility] Medical History Internal hemorrhoids Vertigo Hearing loss Surgical History Status post colonoscopy Social History Housing: House Patient Tobacco Use Status: Never used Tobacco e-Cigarette/Vaping Use: Never Used Second Hand Smoke Exposure: No Current occupational status: employed Current occupation: [employer] Cognitive needs: No Hearing needs: No Vision needs: No Questionnaire Thrive Questionnaire Date Thrive assessed: 10/15/22 MILENA-7 AMB Questionnaire MILENA-7 Date MILENA - 7 assessed: 10/15/22 Source: Developed by Drs. Glen Gomez, Ana Maria Taylor, Lance Tobias and colleagues, with an educational nahomy from [employer]. Review of Systems Const Reports as per HPI Physical exam (Primary Care) Vital Signs: Last Vital Signs Pulse 78 12/09/23 15:10 BP 120/68 12/09/23 15:10 Pulse Ox 98 12/09/23 15:10 Oxygen Delivery Method Room Air 12/09/23 15:10 BMI result Body Mass Index 32.5 Tobacco/Smoking Status: Tobacco use Status Tobacco use date assessed 12/09/23 12/09/23 15:12 Patient Tobacco Use Status Never used Tobacco 12/09/23 15:10 e-Cigarette/Vaping Use Never Used 12/09/23 15:10 Thrive Assessment: Date of Thrive Assessment Date Thrive assessed 10/15/22 12/09/23 15:10 Const General: cooperative Nutritional Appearance: obese Orientation/consciousness: patient oriented x3 Resp Effort & Inspection: normal respiratory effort Auscultation: clear to auscultation bilaterally Cardio Rate: regular rate Rhythm: regular rhythm Heart sounds: S1 normal heart sound present and S2 normal heart sound present Neuro General: patient oriented x3 Extrem Right lower extremity: no edema Left lower extremity: no edema Psych Appearance: grossly normal Mental Status: mental status grossly normal Speech and movement: Normal speech and movement present Affect: normal affect Attitude: cooperative Thought process: Normal thought process present Thought content: Normal thought content present Insight: Good insight present (Psych) Judgement: Good judgement present (Psych) Assessment and Plan Assessment & Plan (1) Dyslipidemia: Code(s): E78.5 - Hyperlipidemia, unspecified Plan The patient agreed to the use of a medical reception for this encounter. Scribed for ANGELA Gregory by Katy Green medical reception, on 12/09/2023 at 15:35 EST. Orders: Orders Complete Blood Count Auto Diff Today E78.5 - Hyperlipidemia, unspecified Comprehensive [place]. Panel Fast Today E78.5 - Hyperlipidemia, unspecified UA CC w/rflx Micro + Cult Today E78.5 - Hyperlipidemia, unspecified Lipid Panel Today E78.5 - Hyperlipidemia, unspecified TSH reflex Free T4 Today E78.5 - Hyperlipidemia, unspecified Coding Level of Care Code Est Pt Level 3 (60485) Diagnoses Dyslipidemia E78.5
[2023-12-09 15:10] VITALS: BP 120/68; PULSE 78; O2SAT 98; BMI 32.5
== END 2023-12-09 15:47 | disposition home or self-care (01) ==
PROVIDERS: PCP Nurse Practitioner Family; Visit Provider Nurse Practitioner Family
DX: E78.5 Hyperlipidemia, unspecified (principal)
CPT/HCPCS: 99213

== ENCOUNTER 2023-12-10 06:03 | Outpatient (REF) | payer OTHER, SELFPAY ==
[2023-12-10 11:00] LABS: MANUAL DIFF FLAG NO
[2023-12-10 11:17] LABS: Appearance Urine Turbid; Color Urine Yellow; Glucose Urine UA Negative (Negative); Leukocyte Esterase Urine Negative (Negative); Nitrite Urine Negative (Negative); PH 5.5 (5.0-9.0); Urine Blood Negative (Negative); Urine Ketones Negative (Negative); Urine Protein Negative (Neg-Trace)
[2023-12-10 11:18] LABS: Basophils Percent Auto 0.6 % (0-2); Eosinophils Absolute Auto 0.1 X10*3/uL (0.0-0.4); Eosinophils Percent Auto 2.5 % (0-4); Hematocrit 41.6 % (42.0-52.0); Hemoglobin 14.7 g/dl (14.0-18.0); Imm Gran Abs Auto 0.02 X10*3/uL (0.00-0.03); Imm Gran Pct Auto 0.4 % (0.0-0.4); Lymphocytes Absolute Auto 1.5 X10*3/uL (1.2-4.9); Lymphocytes Percent Auto 29.9 % (20-40); Mean Corpuscular HGB Conc 35.3 g/dl (31.0-36.0); Mean Corpuscular Hemoglobin 30.3 pg (27.0-33.0); Mean Corpuscular Volume 85.8 fL (80.0-98.0); Mean Platelet Volume 9.2 fL (9.4-12.4); Monocytes Absolute Auto 0.5 X10*3/uL (0.1-1.2); Monocytes Percent Auto 9.6 % (2-11); Neutrophils Absolute Auto 2.9 x10*3/uL (2.0-8.3); Platelet Count 210 X10*3/uL (160-400); Red Blood Count 4.85 X10*6/uL (4.60-5.80); Red Cell Distribution Width 12.7 % (11.0-16.0); White Blood Count 5.1 X10*3/uL (4.8-10.8)
[2023-12-10 12:03] LABS: Alanine Aminotransferase 50 U/L (0-40); Albumin Level 4.1 g/dL (3.5-5.0); Alkaline Phosphatase 63 U/L (39-117); Anion Gap 13 (12-20); Aspartate Amino Transferase 32 U/L (5-37); Bilirubin Total 0.7 mg/dL (0.0-1.0); Blood Urea Nitrogen 17 mg/dL (9-16); Calcium 9.3 mg/dL (8.4-10.2); Carbon Dioxide 25 mmol/L (22-29); Chloride 107 mmol/L (96-108); Cholesterol 226 mg/dL (<200); Estimated Glomerular Filt Rate > 60; Glucose Fasting 90 mg/dL (60-99); HDL Cholesterol 46 mg/dL (>40); LDL Cholesterol Calculated 157 mg/dL (<100); Potassium 3.9 mmol/L (3.3-5.1); Sodium 141 mmol/L (135-145); TSH reflex Free T4 2.62 uIU/mL (0.32-4.0); Total Protein 6.8 g/dL (6.5-8.0); Triglycerides 119 mg/dL (<150)
== END 2023-12-10 06:04 | disposition home or self-care (01) ==
LOC: HO.HMGCLDS 06:03
PROVIDERS: PCP Nurse Practitioner Family; Visit Provider Nurse Practitioner Family
DX: E78.5 Hyperlipidemia, unspecified (principal)
CPT/HCPCS: 36415; 80053; 80061; 81003; 84443; 85025

== ENCOUNTER 2024-03-17 11:25 | Outpatient (REF) | payer OTHER, SELFPAY | END 2024-03-17 11:26 | disposition home or self-care (01) | LOC: HO.HAP 11:25 | PROVIDERS: Visit Provider Nurse Practitioner Family | DX: Z13.89 Encounter for screening for other disorder (principal) ==

== ENCOUNTER 2024-03-23 08:33 | Outpatient (REF) | payer OTHER, SELFPAY | END 2024-03-23 08:34 | disposition home or self-care (01) | LOC: HO.HAP 08:33 | PROVIDERS: Visit Provider Nurse Practitioner Family | DX: Z13.89 Encounter for screening for other disorder (principal) ==

== ENCOUNTER 2024-03-23 08:45 | Outpatient (REF) | payer SELFPAY | END 2024-03-23 08:46 | disposition home or self-care (01) | LOC: HO.HAP 08:45 | PROVIDERS: Visit Provider Nurse Practitioner Family | DX: Z46.1 Encounter for fitting and adjustment of hearing aid (principal); H90.3 Sensorineural hearing loss, bilateral | CPT/HCPCS: V5267 ==

== ENCOUNTER 2024-05-24 06:41 | Outpatient (REF) | payer OTHER, SELFPAY ==
[2024-05-24 10:07] LABS: MANUAL DIFF FLAG NO
[2024-05-24 10:13] LABS: Basophils Percent Auto 0.7 % (0-2); Eosinophils Absolute Auto 0.4 X10*3/uL (0.0-0.4); Hematocrit 42.7 % (42.0-52.0); Hemoglobin 15.2 g/dl (14.0-18.0); Imm Gran Abs Auto 0.02 X10*3/uL (0.00-0.03); Imm Gran Pct Auto 0.3 % (0.0-0.4); Lymphocytes Absolute Auto 1.8 X10*3/uL (1.2-4.9); Mean Corpuscular HGB Conc 35.6 g/dl (31.0-36.0); Mean Platelet Volume 9.1 fL (9.4-12.4); Monocytes Absolute Auto 0.6 X10*3/uL (0.1-1.2); Neutrophils Absolute Auto 3.3 x10*3/uL (2.0-8.3); Platelet Count 199 X10*3/uL (160-400); Red Blood Count 4.91 X10*6/uL (4.60-5.80); Red Cell Distribution Width 12.4 % (11.0-16.0); White Blood Count 6.1 X10*3/uL (4.8-10.8)
[2024-05-24 10:34] LABS: Appearance Urine Clear; Color Urine Dark Yellow; Glucose Urine UA Negative (Negative); Leukocyte Esterase Urine Negative (Negative); Nitrite Urine Negative (Negative); PH 6.5 (5.0-9.0); Urine Blood Negative (Negative); Urine Ketones Negative (Negative); Urine Protein Negative (Neg-Trace)
[2024-05-24 10:42] LABS: Alanine Aminotransferase 52 U/L (0-40); Albumin Level 4.2 g/dL (3.5-5.0); Alkaline Phosphatase 66 U/L (39-117); Anion Gap 11 (12-20); Aspartate Amino Transferase 28 U/L (5-37); Bilirubin Total 0.6 mg/dL (0.0-1.0); Blood Urea Nitrogen 17 mg/dL (9-16); Calcium 9.3 mg/dL (8.4-10.2); Carbon Dioxide 27 mmol/L (22-29); Chloride 107 mmol/L (96-108); Cholesterol 210 mg/dL (<200); Estimated Glomerular Filt Rate > 60; Glucose Fasting 96 mg/dL (60-99); HDL Cholesterol 44 mg/dL (>40); LDL Cholesterol Calculated 137 mg/dL (<100); Potassium 3.8 mmol/L (3.3-5.1); Sodium 141 mmol/L (135-145); Total Protein 6.7 g/dL (6.5-8.0); Triglycerides 146 mg/dL (<150)
[2024-05-24 10:56] LABS: TSH reflex Free T4 2.93 uIU/mL (0.32-4.0)
== END 2024-05-24 06:42 | disposition home or self-care (01) ==
LOC: HO.HMGCLDS 06:41
PROVIDERS: PCP Nurse Practitioner Family; Visit Provider Nurse Practitioner Family
DX: E78.5 Hyperlipidemia, unspecified (principal); Z12.5 Encounter for screening for malignant neoplasm of prostate
CPT/HCPCS: 36415; 80053; 80061; 81003; 84153; 84443; 85025

== ENCOUNTER 2024-05-26 08:25 | Outpatient (AMB) | payer OTHER, SELFPAY ==
--- NOTE | 2024-05-26 08:33 | A.OFFPC_ITS ---
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 Will restart bempedoic acid- ezetimibe 180-10mg and lovastatin 20mg. Will repeat labs in 2 months. Denies chest pain, shortness of breath, and AKERS. DOes get intermittent dizziness (menieres/vertigo, seeing ENT). Pt reports frequent nocturia. His prostate is enlarged on exam. Will send tamsulosin and refer to urology. [facility] Medical History Internal hemorrhoids Vertigo Hearing loss Surgical History Status post colonoscopy Social History Housing: House Patient Tobacco Use Status: Never used Tobacco e-Cigarette/Vaping Use: Never Used Second Hand Smoke Exposure: No Current occupational status: employed Current occupation: [employer] Cognitive needs: No Hearing needs: No Vision needs: No Questionnaire PHQ-9 Over the last 2 weeks, how often have you been bothered by any of the following problems? 1. Little interest or pleasure in doing things: not at all 2. Feeling down, depressed, or hopeless: not at all 3. Trouble falling or staying asleep, or sleeping too much: several days 4. Feeling tired or having little energy: several days 5. Poor appetite or overeating: not at all 6. Feeling bad about yourself - or that you are a failure or have let yourself or your family down: several days 7. Trouble concentrating on things, such as reading the newspaper or watching television: several days 8. Moving or speaking so slowly that other people could have noticed. Or the opposite - being so fidgety or restless that you have been moving around a lot more than usual: several days 9. Thoughts that you would be better off or of hurting yourself in some way: not at all Total score: 5 Depression Screening Interpretation: Negative Depression Screening Done: Yes 98026 - PHQ-9 Billing: Yes Source: Developed by Drs. Glen Gomez, Ana Maria Taylor, Lance Tobias and colleagues, with an educational nahomy from [employer]. Thrive Questionnaire Date Thrive assessed: 05/26/24 I am a: Patient What is your living situation today?: I have a steady place to live Within the past 12 months, did the food you bought not last and you didn't have the money to get more?: I choose not to answer this question Within the past 12 months, did you worry whether your food would run out before you got money to buy more?: I choose not to answer this question Do you have trouble paying for medicines?: I choose not to answer this question Do you have trouble getting transportation to medical appointments?: I choose not to answer this question Do you have trouble paying your heating and electricity bill?: I choose not to answer this question Do you have trouble taking care of your child, family member or friend?: I choose not to answer this question Do you have trouble with day-to-day activities such as bathing, preparing meals, shopping, managing finances, etc.?: I choose not to answer this question Are you currently unemployed and looking for a job?: I choose not to answer this question Are you interested in more education?: I choose not to answer this question Please select the resources that you would like help with: None Currently or been in a relationship where the following occur: I choose not to answer THRIVE Score: 0 AUDIT C Alcohol Use Questionnaire (AUDIT-C) 1. How often do you have a drink containing alcohol?: Never 3. How often do you have six or more drinks on one occasion?: Never Total Score: 0 Score Reviewed/Action Taken: Yes MILENA-7 AMB Questionnaire MILENA-7 Date MILENA - 7 assessed: 05/26/24 Feeling nervous, anxious, or on edge: 1 = Several days Not being able to stop or control worryin = Several days Worrying too much about different things: 1 = Several days Trouble relaxin = Several days Being so restless that it is hard to sit still: 1 = Several days Becoming easily annoyed or irritable: 1 = Several days Feeling afraid as if something awful might happen: 1 = Several days Total MILENA-7 score (0-4 normal; 5-9 mild; 10-14 moderate; 15-21 severe): 7 Source: Developed by Drs. Glen Gomez, Ana Maria Taylor, Lanec Tobias and colleagues, with an educational nahomy from [employer]. MILENA-7 Assessment Billing MILENA-7 Assessment Tool: MILENA-7 Assessment 09473 Review of Systems Const Reports as per HPI Physical exam (Primary Care) Vital Signs: Last Vital Signs Pulse 68 05/26/24 08:34 BP 120/72 05/26/24 08:34 Pulse Ox 98 05/26/24 08:34 BMI result Body Mass Index 32.2 Tobacco/Smoking Status: Tobacco use Status Tobacco use date assessed 12/09/23 05/26/24 08:38 Patient Tobacco Use Status Never used Tobacco 05/26/24 08:38 e-Cigarette/Vaping Use Never Used 05/26/24 08:38 PHQ-9: PHQ-9 Score PHQ-9: Total score 5 05/26/24 08:50 Depression Screening Interpretation: Negative Thrive Assessment: Date of Thrive Assessment Date Thrive assessed 05/26/24 05/26/24 08:38 Currently or been in a relationship where the following occur: I choose not to answer Const General: cooperative Orientation/consciousness: patient oriented x3 Resp Effort & Inspection: normal respiratory effort Auscultation: clear to auscultation bilaterally Cardio Rate: regular rate Rhythm: regular rhythm Heart sounds: S1 normal heart sound present and S2 normal heart sound present Other: MICHAEL: prostate slightly enlarged, smooth central groove Neuro General: patient oriented x3 Psych Appearance: grossly normal Mental Status: mental status grossly normal Speech and movement: Normal speech and movement present Affect: normal affect Attitude: cooperative Thought process: Normal thought process present Thought content: Normal thought content present Insight: Good insight present (Psych) Judgement: Good judgement present (Psych) Assessment and Plan Assessment & Plan (1) Enlarged prostate: Code(s): N40.0 - Benign prostatic hyperplasia without lower urinary tract symptoms Plan: Tamsulosin sent, referred to urology (2) Nocturia: Code(s): R35.1 - Nocturia Plan: Tamsulosin sent, referred to urology (3) Dyslipidemia: Code(s): E78.5 - Hyperlipidemia, unspecified Plan: restarting statin and bempedoic acid-ezetimibe, repeat labs in 2 months Plan The patient agreed to the use of a medical insurance claims specialist for this encounter. Scribed for AGUSTIN Gregory-JERAD by Katy Green medical insurance claims specialist, on 05/26/2024 at 08:50 EST. Orders: Orders Comprehensive [place]. Panel Fast Today E78.5 - Hyperlipidemia, unspecified Lipid Panel Today E78.5 - Hyperlipidemia, unspecified Referrals Urology Referral N40.0 - Benign prostatic hyperplasia without lower urinary tract symptoms, R35.1 - Nocturia Medications: New tamsulosin 0.4 mg PO BEDTIME 90 caps 0RF Refilled bempedoic acid-ezetimibe 180-10 mg 1 tab PO DAILY 90 tabs 0RF lovastatin 20 mg PO DAILY 90 tabs 0RF Coding Level of Care Code Est Pt Level 3 (59586) Diagnoses Enlarged prostate N40.0 Nocturia R35.1 Dyslipidemia E78.5 Additional Codes MILENA-7 Assessment Billing - MILENA-7 Assessment Tool: MILENA-7 Assessment 16267 ([id number])
[2024-05-26 08:34] VITALS: BP 120/72; PULSE 68; O2SAT 98; BMI 32.2
== END 2024-05-26 10:03 | disposition home or self-care (01) ==
PROVIDERS: PCP Nurse Practitioner Family; Visit Provider Nurse Practitioner Family
DX: N40.0 Benign prostatic hyperplasia without lower urinary tract symptoms (principal); R35.1 Nocturia; E78.5 Hyperlipidemia, unspecified
CPT/HCPCS: 99213

== ENCOUNTER 2024-07-11 12:41 | Outpatient (REF) | payer SELFPAY | END 2024-07-11 12:42 | disposition home or self-care (01) | LOC: HO.HAP 12:41 | PROVIDERS: Visit Provider Nurse Practitioner Family | DX: Z46.1 Encounter for fitting and adjustment of hearing aid (principal); H90.3 Sensorineural hearing loss, bilateral | CPT/HCPCS: V5267 ==

== ENCOUNTER 2024-07-18 13:49 | Outpatient (REF) | payer OTHER, SELFPAY | END 2024-07-18 13:50 | disposition home or self-care (01) | LOC: HO.HAP 13:49 | PROVIDERS: Visit Provider Nurse Practitioner Family | DX: Z13.89 Encounter for screening for other disorder (principal) ==

== ENCOUNTER 2024-07-27 06:22 | Outpatient (REF) | payer OTHER, SELFPAY ==
[2024-07-27 10:37] LABS: Alanine Aminotransferase 87 U/L (0-40); Albumin Level 4.4 g/dL (3.5-5.0); Alkaline Phosphatase 64 U/L (39-117); Anion Gap 11 (12-20); Aspartate Amino Transferase 49 U/L (5-37); Bilirubin Total 0.7 mg/dL (0.0-1.0); Blood Urea Nitrogen 22 mg/dL (9-16); Calcium 9.5 mg/dL (8.4-10.2); Carbon Dioxide 26 mmol/L (22-29); Chloride 107 mmol/L (96-108); Cholesterol 142 mg/dL (<200); Estimated Glomerular Filt Rate > 60; Glucose Fasting 98 mg/dL (60-99); HDL Cholesterol 43 mg/dL (>40); LDL Cholesterol Calculated 82 mg/dL (<100); Potassium 3.9 mmol/L (3.3-5.1); Sodium 140 mmol/L (135-145); Triglycerides 88 mg/dL (<150)
== END 2024-07-27 06:23 | disposition home or self-care (01) ==
LOC: HO.HMGCLDS 06:22
PROVIDERS: PCP Nurse Practitioner Family; Visit Provider Nurse Practitioner Family
DX: E78.5 Hyperlipidemia, unspecified (principal)
CPT/HCPCS: 36415; 80053; 80061

== ENCOUNTER 2024-07-28 07:42 | Outpatient (AMB) | payer OTHER, SELFPAY ==
--- NOTE | 2024-07-28 07:55 | A.OFFVIS_ITS ---
Intake Visit Reasons: BPH/nocturia Intake Note: New Patient presents for initial visit for BPH and nocturia Urology Medications: none Blood Thinner: none PVR: 49ml's Clinical Assistant Required: No Accompanied by: Self / Same As Patient Allergies No Known Allergies Allergy (Verified 07/28/24 08:34) Medication List - Last Reconciled 07/28/24 by AGUSTIN Chung- bempedoic acid-ezetimibe 180-10 mg 1 tab PO DAILY lovastatin 20 mg PO DAILY magnesium oxide 400 mg PO DAILY riboflavin (vitamin B2) 400 mg PO DAILY HPI Comments Details: Arnaldo is a very pleasant 63-year-old male patient of Dr. Valdovinos. He has a past medical history of Meniere's disease, vertigo, and hearing loss. Presents to the office today as a new patient for nocturia. In discussion with the patient today he reports having followed up with his PCP in discussing episodes of nocturia up to 2-3 times per night however it is not always frequent. In review of patient's chart it appears PSA was ordered and obtained. These results were reviewed with the patient today. PSA 06/14 1.2. He otherwise denies urinary urgency, urinary frequency, incontinence, hematuria, dysuria, foul smelling urine, changes to urinary stream, flank pain, fever, and or chills. He discusses feeling correlation of nocturia is related to his increase water as he experiences vertigo and feels increase in water helps him. In office urinalysis results reviewed with the patient today. PVR 49 mL. When asked he denies any signs and symptoms of sleep apnea. We discussed potential causes of nocturia as well as further treatment options. He reports being prescribed Flomax by PCP however felt this made him more dizzy so he stopped taking the medication. He reports taking it for 2 weeks and noting no improvement. He otherwise offers no other issues or concerns at this time. [facility] Medical History Internal hemorrhoids Vertigo Hearing loss Surgical History Status post colonoscopy Social History Housing: House Patient Tobacco Use Status: Never used Tobacco e-Cigarette/Vaping Use: Never Used Second Hand Smoke Exposure: No Current occupational status: employed Current occupation: [employer] Cognitive needs: No Hearing needs: No Vision needs: No Review of Systems Const All systems reviewed & are unremarkable except as noted in HPI and below Physical Exam Const General: cooperative, healthy appearing, comfortable, no acute distress, well developed, alert and awake Orientation/consciousness: patient oriented x3 Limitations: other limitations (Bilateral hearing aids-hearing impaired) HEENT Head: Yes normal to inspection, Yes normocephalic and Yes atraumatic Ears: hearing grossly normal bilaterally Eyes General: appearance normal, both eyes and all related structures Neck Neck: Yes normal visual inspection and Yes trachea midline Chest Chest palpation & inspection: normal inspection of the chest Resp Effort & Inspection: normal respiratory effort and able to speak in complete sentences Cardio Rate: regular rate GI Inspection: Yes normal to inspection General: Yes no CVA tenderness Back/Spine/Pelvis Back: no CVA tenderness Skin General skin exam: no rashes or lesions noted Neuro General: patient oriented x3 Extrem General: Yes normal to inspection Psych Appearance: grossly normal and well kempt Mental Status: mental status grossly normal Speech and movement: Normal speech and movement present and Clear speech present Affect: normal affect Attitude: cooperative Thought process: Normal thought process present Thought content: Normal thought content present Insight: Fair insight present (Psych) Judgement: Fair judgement present (Psych) Office Procedures Post Void Residual Post Residual Void Post Void Residual (PVR): 49 [id number] Void Residual by ultrasound Results AMB Urinalysis, Automated UA Leukoctes 0 Jaqueline/uL Last Edit by Claus Welch on 07/28/24 08:30 UA Nitrite Negative Last Edit by Claus Welch on 07/28/24 08:30 UA Urobilinogen 0.2 mg/dL Last Edit by Claus Welch on 07/28/24 08:30 UA Protein 0 mg/dL Last Edit by Claus Welch on 07/28/24 08:30 UA pH 6.0 Last Edit by Claus Reyeskate on 07/28/24 08:30 UA Blood 0 Mikel/uL Last Edit by Claus Amykate on 07/28/24 08:30 UA Specific [place] 1.015 Last Edit by Claus Amykate on 07/28/24 08:30 UA Ketone Negative Last Edit by Rustylor Amykate on 07/28/24 08:30 UA Bilirubin 0 mg/dL Last Edit by Rustylor Amykate on 07/28/24 08:30 UA Glucose 0 mg/dL Last Edit by Claus Amykate on 07/28/24 08:30 Results Reviewed Results Reviewed: Laboratory Last Values Urine pH (Auto) 6.0 07/28/24 08:27 Specific [place] (Auto) 1.015 07/28/24 08:27 Urine Protein (Auto) 0 mg/dL 07/28/24 08:27 Glucose (UA)(Auto) 0 mg/dL 07/28/24 08:27 Urine Ketones (Auto) Negative 07/28/24 08:27 Urine Blood (Auto) 0 Mikel/uL 07/28/24 08:27 Urine Nitrite (Auto) Negative 07/28/24 08:27 Urine Bilirubin (Auto) 0 mg/dL 07/28/24 08:27 Urine Urobilinogen (Auto) 0.2 mg/dL 07/28/24 08:27 Leukocyte Esterase (Auto) 0 Jaqueline/uL 07/28/24 08:27 Assessment & Plan Assessment & Plan (1) Nocturia: Code(s): R35.1 - Nocturia Category: Medical Plan In office urinalysis results reviewed with the patient today; as noted above. Recent PSA results reviewed with the patient today; as noted above. PVR 49 mL. Discussed lifestyle modifications to assist with nocturia. Will obtain retroperitoneal ultrasound for further assessment evaluation. Discussed possible near future in office cystoscopy if symptoms continue. We discussed further treatment options of nocturia. Follow-up in 3 months with imaging to be completed prior and PVR at next office visit; or sooner with any issues, concerns, and or questions. Orders: Orders AMB Urinalysis Automated Today Z13.9 - Encounter for screening, unspecified AMB Post Void Residual by ultrasound Today R35.1 - Nocturia Patient Instructions: The patient had an opportunity to ask questions regarding the treatment plan. All questions were answered. Physical exam, labs, and imaging were discussed and reviewed in detail. As well as risks, benefits, and discussion of treatment choices. No major barriers to understanding were identified. The patient expressed understanding and agreement with the above treatment plan. The patient was made aware they should contact our office by phone for worsening of their current condition, the appearance of new symptoms, or with any ques tions or concerns. Compliance is encouraged with any medications and follow up testing that is ordered. It is a privilege to be allowed the opportunity to participate in? your urological care.? Again, if you have any questions or concerns If you have any questions or concerns please do not hesitate to contact me. The office is [phone]. This note is constructed using voice recognition software. While every effort has been made to ensure accuracy clinic director errors may have been included. Yours sincerely, ANGELA Chung Coding Level of Care Code New Pt Level 3 (36772) Diagnoses Nocturia R35.1 CPT Codes Post Residual Void - PVR CPT Code: 54853-Vquj Void Residual by ultrasound ([id number])
== END 2024-07-28 08:35 | disposition home or self-care (01) ==
LOC: HO.HUSH 07:42
PROVIDERS: PCP Nurse Practitioner Family; Visit Provider Nurse Practitioner Family
DX: R35.1 Nocturia (principal); Z13.9 Encounter for screening, unspecified
CPT/HCPCS: 99203

== ENCOUNTER → 2024-07-28 07:42 | Outpatient (BNVA) | payer OTHER, SELFPAY | PROVIDERS: PCP Nurse Practitioner Family; Visit Provider Nurse Practitioner Family | DX: N40.1 Benign prostatic hyperplasia with lower urinary tract symptoms (principal); R35.1 Nocturia | CPT/HCPCS: 51798; 81003; 99202 ==

== ENCOUNTER 2024-09-26 08:32 | Outpatient (AMB) | payer OTHER, SELFPAY ==
--- OUTSIDE RECORDS SUMMARY | 2024-09-26 08:53 | XMS_ITS | Data Portability ---
Author Organization [facility] - [facility], Allergy Address [address] [address] Assessment Encounter Date Assessment Date Assessment LastModified by Organization Details LastModified Time 03/15/2024 03/15/2024 Patient continue s to demonstrate fluctuating hearing loss bilaterally. We discussed how his recent fluctuations in hearing and mild balance disturbance are likely related to dehydration and overexertion, both of which are triggers for migrainous phenomena. I recommended he continue on migraine diet and vitamin supplementation as we have discussed. 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 We did discuss the possibility of them preprogramming a number of different hearing configurations into the devices so that he can cycle through different configurations and she was the best that fits his hearing for any given day. Follow-up recommended in 6 months with hearing test first [email or web address] Not available 03/15/2024 10:30:18 09/15/2024 09/15/2024 Patient continue s to demonstrate fluctuating hearing loss bilaterally, as well as chronic pressure sensation in his head and overall sensitivity to light, sound and activity. In addition, his balance disturbance pattern is much more likely to represent vestibular migraine than M??ni??re's disease. I have recommended we initiate low-dose nortriptyline, 10 mg at bedtime. I will see him back in about 6 weeks to assess his response to this treatment. Audiometric testing reviewed with patient. His speech discrimination is poor today than it has been, but may simply represent his fluctuations in hearing. We will reassess his hearing once we are able to stabilize the underlying neurological phenomenon. [email or web address] Not available 09/15/2024 10:15:42 Plan of Treatment Reminders Order Date Submit Date Provider Last Modified By Organization Details Last Modified Time Details Appointments FOLLOW UP 15 2024 09:00A M EMMIE MCKEON MD Not available Not available Not available Lab None recorded. Referral None recorded. Procedures None recorded. Surgeries None recorded. Imaging None recorded. Medication Orders nortripty line 10 mg capsule 2023 024 [id number], [address] [facility], [place], [address], 09/15/2024 10:10:22 Patient TargetsNo targets recorded. Patient InstructionsNo instructions recorded. Reason for Referral None Reported. Results Created Date Observation Date Name Description Value Unit Range Abnormal Flag Note LastModifiedBy Organization Detail LastModifiedTime 03/16/20 audio gram No observ ation record ed. [email or web address] Not Available 02/20 16:31:06 05/12/2003/15/2024 imagi ng/di agnos tic resul t No observ ation record ed. [email or web address] Not Available 18:56:54 05/12/2006/02/2023 imagi ng/di agnos tic resul t No observ ation record ed. [email or web address] Not Available 18:56:56 05/12/2007/06/2023 imagi ng/di agnos tic resul t No observ ation record ed. [email or web address] Not Available 18:56:57 05/12/2007/16/2023 imagi ng/di agnos tic resul t No observ ation record ed. [email or web address] Not Available 18:57:04 05/12/2007/16/2023 imagi ng/di agnos tic resul t No observ ation record ed. [email or web address] Not Available 18:57:06 05/12/20 24 07/22/2022 imagi ng/di agnos tic resul t No observ ation record ed. [email or web address] Not Available 18:57:21 05/12/20 24 07/22/2022 imagi ng/di agnos tic resul t No observ ation record ed. [email or web address] Not Available 18:57:23 05/12/20 24 09/15/2023 imagi ng/di agnos tic resul t No observ ation record ed. [email or web address] Not Available 18:57:25 05/12/20 24 07/31/2022 audio gram No observ ation record ed. [email or web address] Not Available 18:57:35 09/15/20 audio gram No observ ation record ed. [email or web address] Not Available 2023 17:51:38 09/15/20 audio gram No observ ation record ed. [email or web address] Not Available 2023 17:51:38 Result Notes None recorded. Problems Name Problem SNOMED Code Status Onset Date Resolution Date Notes Provider Name and Address Organization Details Recorded Time Sensorin eural hearing loss of bilatera l ears 037576175 Active 2021 Sensorin eural hearing loss, bilatera l; Note: Date Diagnose d: 2 10:46 AM (H90.3) Not Available [facility] 4 02:20:52 Benign paroxysm al position al vertigo 962873586 Completed 202104/22/2024 Benign paroxysm al vertigo, unspecif ied ear; Note: Date Diagnose d: 2 10:49 AM (H81.10) Not Available [facility] 4 02:20:50 Vertigo of central origin 86163539 Active 2022 Vertigo of central origin; Note: Date Diagnose d: 3 11:35 AM (H81.4) Not Available [facility] 4 02:20:09 Disorder of nasal sinus 7587665 Active 2021 Perforat ion of nasal septum NOS; Note: Date Diagnose d: 2 10:46 AM (J34.89) Not Available [facility] 4 02:20:07 Disorder of the nose 55655047 Active 2021 Perforat ion of nasal septum NOS; Note: Date Diagnose d: 2 10:46 AM (J34.89) Not Available [facility] 02[facility]07 Refracto ry migraine 072648783 Active 2022 Other migraine , intracta ble, without status migraino sumit; Note: Date Diagnose d: 3 11:35 AM (G43.819 ) Not Available [facility] 4 02:20:36 Bilatera l tinnitus 35521112895 02 Active 2021 Tinnitus , bilatera l; Note: Date Diagnose d: 2 10:46 AM (H93.13) Not Available [facility] 4 02:20:16 M??ni??r e's disease 45409604 Active 2022 Meniere' s disease, left ear; Note: Date Diagnose d: 07/16/20 23 8:57 AM (H81.02) Not Available [facility] 4 02:19:58 Impacted cerumen of bilatera l ears 03498551500 23140 Active 2023 EMMIE MCKEON MD [address] [place] [address], [phone] , [facility] 4 10:31:01 Problem Notes None recorded. Procedures Surgical History Date Name Laterality Status Provider Name and Address Organization Details Recorded Time 4 Air & Speech Audio with Tymps (59833, 11222 & 95805) completed MILO HENDRICKS AUD [address] [place] [address], [phone], [facility] - [facility] [place] 09/15/2024 09:41:13 4 Comp Audio with Tymps (99243 & 48535) completed JAIME TOBIN AUD [address] [place] [address], [phone], [facility] - [facility] 03/15/2024 09:20:28 4 Cerumen removal with microscope bilateral completed EMMIE MCKEON MD [address], [address], [facility] - [facility] 03/15/2024 10:24:32 Kidney Stone Removal completed Genny Draper [place] - [facility] 03/15/2024 09:43:01 Imaging Results Imaging Date Name Status LastModified by Organiz ation Details LastModified Time 03/16/2024 audiogram completed [email or web address] Information n ot available 03/16/2024 16:31:06 03/15/2024 imaging/diagno stic result completed Information not available 05/12/2024 18:56:54 06/02/2023 imaging/diagno stic result completed Information not available 05/12/2024 18:56:56 07/06/2023 imaging/diagno stic result completed Information not available 05/12/2024 18:56:57 07/16/2023 imaging/diagno stic result completed Information not available 05/12/2024 18:57:04 07/16/2023 imaging/diagno stic result completed Information not available 05/12/2024 18:57:06 07/22/2022 imaging/diagno stic result completed Information not available 05/12/2024 18:57:21 07/22/2022 imaging/diagno stic result completed Information not available 05/12/2024 18:57:23 09/15/2023 imaging/diagno stic result completed Information not available 05/12/2024 18:57:25 07/31/2022 audiogram completed Information not available 05/12/2024 18:57:35 09/15/2024 audiogram completed BARCODE Information no t available 09/15/2024 17:51:38 09/15/2024 audiogram completed BARCODE Information no t available 09/15/2024 17:51:38 Procedure Notes None recorded. Medical Equipment None Reported. Allergies No known drug allergies Medications Name Sig Start Date Stop Date Status Note LastModified by Organization Details LastModified Time triamtere ne 37.5 mg-hydroc hlorothia zide 25 mg capsule Take 1 capsule by mouth once a day 11/18 completed Medicati on ID: [id number] B rand Name: esther kristin-hydr yayolorjules tomasid S end Method: E-Prescr ibed Sub s Allowed: subs OK Medic ationGen ericName : triamter kristin-hydr ochlorot hiazid Not Available Not Available Not Available nortripty line 10 mg capsule Take 1 capsule every day by oral route at bedtime. 2023 active Not Available Not Available Not Avai lable Vitals Date Recorded Body height Body mass index (BMI) Body weight Provider Name and Address Organization Details Last Updated DateTime 03/15/2024 177.8 cm 29.4 kg/m2 30811.44 g Genny Draper [place] - [facility] 03/15/2024 09:42:31 Date Recorded Body height Body mass index (BMI) Body weight Provider Name and Address Organization Details Last Updated DateTime 09/15/2024 177.8 cm 29.4 kg/m2 90950.44 g Brynn Johnson [facility] 09/15/2024 09:47:17 Social History None recorded. Functional Status None recorded. Mental Status None recorded. Family History Nothing Reported. Medical History Condition Response Hearing Loss Y Past Encounters Encounter ID Performer Location Encounter Start Date Encounter Closed Date Diagnosis/Indication Diagnosis SNOMED-CT Code Diagnosis ICD10 Code Diagnosis Note [id number] EMMIE MCKEON MD [facility] [address] [address] 03/15/2024 09:07:21 03/15/2024 10:34:34 M??ni??re's disease 04535194 H81.02 Refractory migraine 4238 13937 G43.819 Vertigo of central origin 84361266 H81.4 Sensorineu ral hearing loss of bilateral ears 233156154 H90.3 Right Ear:Modera te sloping to a profound SNHL with fair speech discrimina tion.Type A tympanogra m.Left Ear:Modera tely-sever e sloping to a severe SNHL with good speech discrimina tion.Type A tympanogra m. Bilateral tinnitus 51639 40722 102 H93.13 Impacted c erumen of bilateral ears 8148367188 607396 H61.23 [id number] EMMIE MCKEON MD [facility] [address] [address] 09/15/2024 08:53:08 09/15/2024 10:18:47 M??ni??re's disease 88818180 H81.02 Refractory migraine 4238 63006 G43.819 Vertigo of central origin 70363903 H81.4 Bilateral tinnitus 79460 12535 102 H93.13 Sensorineu ral hearing loss of bilateral ears 175643791 H90.3 Audiologic al evaluation results: Right ear: {{Normal N ormal through 2 kHz Mild M oderate Mo derately-s evere* Sev ere Profou nd}} {{hearing hearing. s loping to a mild slopi ng to a moderate s loping to moderately severe slo ping to severe slo ping to profound* flat high frequency low frequency mid frequency cookie bite jennings curve}} {{with sen sorineural hearing loss with* cond uctive hearing loss with mixed hearing loss with}} {{excellen t good tania r poor* no measurable }} word recognitio n. Left ear: {{Normal N ormal through 2 kHz Mild M oderate Mo derately-s evere* Sev ere Profou nd}} {{hearing hearing. s loping to a mild slopi ng to a moderate s loping to moderately severe slo ping to severe* sl oping to profound f lat high frequency low frequency mid frequency cookie bite jennings curve}} {{with sen sorineural hearing loss with* cond uctive hearing loss with mixed hearing loss with}} {{excellen t good tania r poor* no measurable }} word recognitio n. Tympanomet ry: Right Ear:{{Type A* Type As Type Ad Type C Type C, shallow & rounded Ty pe B Type B with large volume Cou ld not maintain a hermetic seal}} Left Ear:{{Type A* Type As Type Ad Type C Type C, shallow & rounded Ty pe B Type B with large volume Cou ld not maintain a hermetic seal}} Health Concerns Section Related Observation LastModified by Organization Anderson khan LastModified Time None Recorded Concern Status LastModified by Organization Details LastModified Time None Recorded Advance Directives Directive None Recorded Payers Encounter Date Sequence Insurance Name Policy Number Policy Santos Covered Member ID Santos Member ID Guarantor Name 03/15/2024 1 [facility] PLAN (MEDICAID HMO) STEFANIE Deluna [id number] Oliverio Deluna 09/15/2024 1 [facility] PLAN (MEDICAID HMO) STEFANIE Deluna [id number] Oliverio Deluna Notes Date Note Type Note Provider Name and Address Organization Details Recorded Time 03/15/2024 text/html 63-year-old male with likely combination of vestibular migraine and left-sided M??ni??re's disease who turns today for reevaluation. Could not tolerate triamterene/hydroch lorothiazide due to lightheadedness. Patient had significant improvement with symptoms following migraine diet as well as magnesium and vitamin B2 and turmeric supplementation. Using binaural amplification dispensed at [facility]. Patient comes back for reevaluation and audiometric testing. Patient reports that over the past few months, he has had some short-lived episodes of sensation of unsteadiness which will last for 30 to 60 minutes, usually occurs after heavy exertional activities or when it is very hot and humid. No true vertigo or nausea or vomiting. Symptoms will pass if he rests for half hour. He has been continuing to follow the migraine diet. He continues to notice fluctuating hearing loss day-to-day EMMIE MCKEON MD [address] [place] [address], [phone], [facility] - [facility] 03/15/2024 10:31:37 09/15/2024 text/html 63-year-old male with likely combination of vestibular migraine and left-sided M??ni??re's disease who turns today for reevaluation. Could not tolerate triamterene/hydroch lorothiazide due to lightheadedness. Patient had significant improvement with symptoms following migraine diet as well as magnesium and vitamin B2 and turmeric supplementation. Using binaural amplification dispensed at [facility]. Patient comes back for reevaluation and audiometric testing. Over the summer he was having some short-lived episodes of sensation of unsteadiness which will last for 30 to 60 minutes, usually occurs after heavy exertional activities or when it is very hot and humid. No true vertigo or nausea or vomiting. Symptoms will pass if he rests for half hour. Patient continues to have fluctuations in hearing that occurs on a day-to-day basis. He has a sensation of fullness and tinnitus which also fluctuates. He has been getting about 2 episodes a week or so of feeling lightheaded, off balance and sweaty in my head which can last for typically 30 minutes. Rare scintillating scotoma in his superior visual dolan. Patient notes he is more likely to be symptomatic if he has not eaten for several hours. He continues to get chronic pressure sensation in his head as well as occipital headaches. He finds that he is sensitive to busy environments and loud noise exposure. EMMIE MCKEON MD [address] [place] [address], [phone], [facility] - [facility] 09/15/2024 10:16:01
--- OUTSIDE RECORDS SUMMARY | 2024-09-26 08:53 | XMS_ITS | Continuity of Care Document ---
Author Organization [place] - [facility], [facility] Address [address] [place] [address] Assessment Encounter Date Assessment Date Assessment LastModified by Organization Details LastModified Time 09/15/2024 09/15/2024 Patient continue s to demonstrate [...] able to stabilize the underlying neurological phenomenon. [email or web address] Not available 09/15/2024 10:15:42 Plan of Treatment Reminders Order Date Submit Date Provider Last Modified By Organization Details Last Modified Time Details Appointments FOLLOW UP 15 2024 09:00A Treva MCKEON MD Not available Not available Not available Lab None recorded. Referral None recorded. Procedures None recorded. Surgeries None recorded. Imaging None recorded. Medication Orders nortripty line 10 mg capsule 2023 024 [facility], [address] [facility], [place], [address], 09/15/2024 10:10:22 Patient TargetsNo targets recorded. Patient InstructionsNo instructions recorded. Reason for Referral None Reported. Results Created Date Observation Date Name Description Value Unit Range Abnormal Flag Note LastModifiedBy Organization Detail LastModifiedTime 09/15/20 audio gram No observ ation record ed. BARCODE Not Available 2023 17:51:38 09/15/20 24 audio gram No observ ation record ed. BARCODE Not Available 2023 17:51:38 Result Notes None recorded. Problems Name Problem SNOMED Code Status Onset Date Resolution Date Notes Provider Name and Address Organization Details Recorded Time Sensorin eural hearing loss of bilatera l ears 158001288 Active 2021 Sensorin eural hearing loss, bilatera l; Note: Date Diagnose d: 2 10:46 AM (H90.3) Not Available [facility] 4 02:20:52 Benign paroxysm al position al vertigo 000543764 Completed 202104/22/2024 Benign paroxysm al vertigo, unspecif ied ear; Note: Date Diagnose d: 2 10:49 AM (H81.10) Not Available [facility] 4 02:20:50 Vertigo of central origin 38123592 Active 2022 Vertigo of central origin; Note: Date Diagnose d: 3 11:35 AM (H81.4) Not Available [facility] 4 02:20:09 Disorder of nasal sinus 6090771 Active 2021 Perforat ion of nasal septum NOS; Note: Date Diagnose d: 2 10:46 AM (J34.89) Not Available [facility] 4 02:20:07 Disorder of the nose 13118462 Active 2021 Perforat ion of nasal septum NOS; Note: Date Diagnose d: 2 10:46 AM (J34.89) Not Available [facility] 4 02:20:07 Refracto ry migraine 655314060 Active 2022 Other migraine , intracta ble, without status migraino sumit; Note: Date Diagnose d: 3 11:35 AM (G43.819 ) Not Available [facility] 4 02:20:36 Bilatera l tinnitus 09662531381 02 Active 2021 Tinnitus , bilatera l; Note: Date Diagnose d: 2 10:46 AM (H93.13) Not Available [facility] the [facility] 4 02:20:16 M??ni??r e's disease 28799793 Active 2022 Meniere' s disease, left ear; Note: Date Diagnose d: 07/16/20 23 8:57 AM (H81.02) Not Available Count includes the [facility] 4 02:19:58 Impacted cerumen of bilatera l ears 01626440425 89483 Active 2023 EMMIE MCKEON MD [address] [facility],[place] [address], [place], [address] , [place] - [facility] 4 10:31:01 Problem Notes None recorded. Procedures Surgical History Date Name Laterality Status Provider Name and Address Organization Details Recorded Time 4 Air & Speech Audio with Tymps (81731, 36929 & 22405) completed MILO HENDRICKS AUD [address] [facility],[place] [address], [place], [address], [place] - [facility] 09/15/2024 09:41:13 4 Comp Audio with Tymps (91547 & 71179) completed JAIME TOBIN AUD [address] [place] [address],[address], [address], [place] - [facility] 03/15/2024 09:20:28 4 Cerumen removal with microscope bilateral completed EMMIE MCKEON MD [address] [facility],[address], [address], [place] - [facility] 03/15/2024 10:24:32 Kidney Stone Removal completed Genny Draper [place] - [facility] 03/15/2024 09:43:01 Imaging Results None recorded. Procedure Notes None recorded. Medical Equipment None Reported. Allergies No known drug allergies Medications Name Sig Start Date Stop Date Status Note LastModified by Organization Details LastModified Time triamtere ne 37.5 mg-hydroc hlorothia zide 25 mg capsule Take 1 capsule by mouth once a day 09/12/ 2023 02/28 /2024 completed Medicati on ID: [id number] B rand Name: esther kristin-hydr yayolorjules morrowazid S end Method: E-Prescr ibed Sub s Allowed: subs OK Medic ationGen ericName : alexaamter kristin-hydr ochlorot hiazid Not Available Not Available Not Available nortripty line 10 mg capsule Take 1 capsule every day by oral route at bedtime. 2023 active Not Available Not Available Not Avai lable Vitals Date Recorded Body height Body mass index (BMI) Body weight Provider Name and Address Organization Details Last Updated DateTime 09/15/2024 177.8 cm 29.4 kg/m2 31014.44 g Brynn Johnson [place] - [facility] 09/15/2024 09:47:17 Social History None recorded. Functional Status None recorded. Mental Status None recorded. Family History Nothing Reported. Medical History Condition Response Hearing Loss Y Past Encounters Encounter ID Performer Location Encounter Start Date Encounter Closed Date Diagnosis/Indication Diagnosis SNOMED-CT Code Diagnosis ICD10 Code Diagnosis Note [id number] EMMIE MCKEON MD [facility] [address] [address] 09/15/2024 08:53:08 09/15/2024 10:18:47 M??ni??re's disease 60240166 H81.02 Refractory migraine 4238 88510 G43.819 Vertigo of central origin 48049796 H81.4 Bilateral tinnitus 48813 71642 102 H93.13 Sensorineu ral hearing loss of bilateral ears 532398346 H90.3 Audiologic al evaluation results: Right ear: [...] Concerns Section Related Observation LastModified by Organization Detai ls LastModified Time None Recorded Concern Status LastModified by Organization Details LastModified Time None Recorded Payers Encounter Date Sequence Insurance Name Policy Number Policy Santos Covered Member ID Santos Member ID Guarantor Name 09/15/2024 1 [facility] PLAN (MEDICAID HMO) [place] Oliverio Deluna [id number] Oliverio Deluna Notes Date Note Type Note Provider Name and Address Organization Details Recorded Time 09/15/2024 text/html 63-year-old male with likely combination of vestibular migraine and left-sided M??ni??re's disease who turns today for reevaluation. Could not tolerate triamterene/hydroch lorothiazide due to lightheadedness. Patient had significant improvement with symptoms following migraine diet as well as magnesium and vitamin B2 and turmeric supplementation. Using binaural amplification dispensed at [facility] aud[facility]. Patient comes back for reevaluation and [...] and loud noise exposure. EMMIE MCKEON MD [address] [place] [address], [phone], [facility] - [facility] 09/15/2024 10:16:01
--- NOTE | 2024-09-26 09:00 | MHC.OFFWIV ---
Intake Vital Signs 09/26/24 09:04 Weight 215 lb BP 120/84 Blood Pressure Location Rt brachial Position Sitting Pulse 83 Pulse Source Pulse Oximeter Temp 98 F Temp Source Oral Pulse Oximetry (%) 95 Oxygen Delivery Method Room Air Intake Visit Reasons: EP Cough, chest congestion Intake Note: Patient here for cough and chest congestion that has been present for about 1 week. Patient Tobacco Use Status: Never used Tobacco Allergies No Known Allergies Allergy (Verified 09/26/24 09:04) Do you need a note to return to daycare/school/sports/work: No PFSH Medical History Internal hemorrhoids Vertigo Hearing loss Surgical History Status post colonoscopy Social History Housing: House Patient Tobacco Use Status: Never used Tobacco e-Cigarette/Vaping Use: Never Used Second Hand Smoke Exposure: No Current occupational status: employed Current occupation: [employer] Cognitive needs: No Hearing needs: No Vision needs: No Physical Exam Vital Signs: Last Vital Signs Temp 98 F 09/26/24 09:04 Pulse 83 09/26/24 09:04 BP 120/84 09/26/24 09:04 Pulse Ox 95 09/26/24 09:04 Oxygen Delivery Method Room Air 09/26/24 09:04 Assessment & Plan Assessment & Plan (1) Upper respiratory tract infection: Code(s): J06.9 - Acute upper respiratory infection, unspecified Plan: See below Plan History of Present Illness The patient is a 63-year-old male presenting with a cough. The cough has persisted for approximately one week and is notably worse at night, leading to frequent awakenings. The onset of symptoms did not coincide with any known exposure to sick individuals, and the patient denies any current fevers or significant sputum production, though there is minor congestion, particularly at night. A COVID-19 home test was performed on the previous Thursday, which returned a negative result. The patient has not noted any prior history of asthma or similar respiratory issues. He has been managing his symptoms with Tylenol. The patient also has a history of Meniere's disease, for which he has experienced vertigo and pronounced tinnitus. 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 He is under the care of an ENT specialist to manage these symptoms and utilizes a hearing aid. 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 - Does not smoke and denies any current tobacco usage. Review of Systems - Respiratory: Reports cough and night-time congestion. - ENT: Denies recent ear infections but reports a history of Meniere's disease with symptoms of vertigo and tinnitus. - General: Denies fever. Physical Exam General: Cooperative and healthy appearing Nutritional Appearance: Well nourished Orientation/consciousness: Patient oriented x3 Limitations: No limitations Head: Normal to inspection General: Appearance normal, both eyes and all related structures Neck: Normal visual inspection Chest: Normal palpation of entire chest wall Respiratory: Normal respiratory effort Neurology: Patient oriented x3 Results Plan - Prescribe an antibiotic course for five days to address suspected bacterial involvement in the persistent cough. - Administer a short course of prednisone for three days to help reduce any inflammatory component in the respiratory tract. - Confirm that recent COVID-19 testing is negative and continue current management without further testing for COVID-19 at this time. Patient was informed and verbally consented to the use of an ambient scribe for clinic note documentation during this visit. Discussion Notes During the visit, I discussed with the patient the proposed management plan for his cough, which includes prescribing antibiotics and a short course of prednisone. I explained that the antibiotic is intended to treat any possible bacterial infection, and prednisone will help in reducing inflammation and easing symptoms. I ensured that the patient understood these medications' potential risks and benefits and that the current prescription does not extend beyond the duration of one week due to the nature and expected resolution of his symptoms. I also provided guidance to monitor his symptoms, particularly whether symptoms escalate or persist beyond the treatment duration. Follow-up was discussed for future issues with persistent cough or worsening symptoms. Patient Instructions - Take the antibiotic as prescribed for five days. - Take prednisone as prescribed for three days. - Monitor symptoms; Report any worsening, persistence of cough beyond the treatment period, or additional symptoms. - Continue to avoid tobacco smoke. - Follow ENT specialist's guidance for Meniere's disease management. Coding Level of Care Code Est Pt Level 3 (33515) Diagnoses Upper respiratory tract infection J06.9
[2024-09-26 09:04] VITALS: BP 120/84; PULSE 83; TEMP 36.6; O2SAT 95
== END 2024-09-26 09:14 | disposition home or self-care (01) ==
PROVIDERS: PCP Nurse Practitioner Family; Visit Provider Internal Medicine
DX: J06.9 Acute upper respiratory infection, unspecified (principal)

== ENCOUNTER → 2024-09-26 08:32 | Outpatient (BNVA) | payer OTHER, SELFPAY | PROVIDERS: PCP Nurse Practitioner Family; Visit Provider Internal Medicine | DX: J06.9 Acute upper respiratory infection, unspecified (principal) | CPT/HCPCS: 99212 ==

== ENCOUNTER → 2024-10-21 14:09 | Outpatient (BNV) | payer OTHER, SELFPAY | PROVIDERS: PCP Nurse Practitioner Family; Visit Provider Specialist | DX: R35.1 Nocturia (principal) | CPT/HCPCS: 76770 ==

== ENCOUNTER → 2024-10-27 08:28 | Outpatient (BNVA) | payer OTHER, SELFPAY | PROVIDERS: PCP Nurse Practitioner Family; Visit Provider Nurse Practitioner Family | DX: N40.1 Benign prostatic hyperplasia with lower urinary tract symptoms (principal); R35.1 Nocturia; N28.1 Cyst of kidney, acquired | CPT/HCPCS: 51798; 81003; 99212 ==

== ENCOUNTER 2024-11-28 07:20 | Outpatient (REF) | payer MEDICARE, SELFPAY ==
--- OUTSIDE RECORDS SUMMARY | 2024-11-28 07:22 | XMS_ITS | Clinical Summary ---
Author Organization [facility] Address [address] [place] [address] Care Team Providers Care Char Filter Tank Tender Head Name Role Phone Sb Muñiz Primary Care Provider [phone] Allergies No known active allergies Medications * This document contains information received from the source organization and may not represent a complete record from that organization. No known medications Active Problems No known active problems Social History Tobacco Use Types Packs/Day Years Used Date Smoking Tobacco: Never Smokeless Tobacco: Never Alcohol Use Standard Drinks/Week Comments Not Asked 0 (1 standard drink = 0.6 oz pur e alcohol) Sex and Gender Information Value Date Recorded Sex Assigned at Not on file Legal Sex Male 1:21 AM EDT Gender Identity Not on file Sexual Orientation Not on file Plan of Treatment Health Maintenance Due Date Last Done Comments Hepatitis C Screening 1960 DTaP/Tdap/Td (1 - Tdap) 12/18/1977 Pneumococcal 50+ years (1 of 1 - PCV) 12/18/2009 Zoster (Shingrix) (1 of 2) 12/18/2009 COVID-19 Vaccine ( - 2023-2 5 season) 2024 Influenza (#1) 2024 RSV (1 - 1-dose 75+ series) 12/18/2034 HPV Vaccine Aged Out No longer eligi ble based on patient's age to complete this topic Hep A Aged Out No longer eligi ble based on patient's age to complete this topic Hep B Aged Out No longer eligi ble based on patient's age to complete this topic Hib Aged Out No longer eligi ble based on patient's age to complete this topic Meningococcal ACWY Aged Out No longer eligible based on patient's age to complete this topic Zoster (Zostavax) Discontinued Insurance [facility] FEE FOR SERVICE HMO * Guarantor: [employer] Account Type Relation to Patient Date of Phone Billing Address [facility] [employer] PA[employer] [address] [place] [address] Care Teams Char Filter Tank Tender Head Relationship Specialty Start Date End Date Sb Muñiz [address] [address] PCP - General Internal Medicine 12/02/11
--- OUTSIDE RECORDS SUMMARY | 2024-11-28 07:23 | XMS_ITS | Continuity of Care Document ---
Author Organization [place] - [facility], [facility] Address [address] [place] [address] Assessment Encounter Date Assessment Date Assessment LastModified by Organization Details LastModified Time 11/01/2024 11/01/2024 Patient with combination of M? ? ?ni? ? ?re's and vestibular migraine who comes back after low-dose nortriptyline trial. Patient did have some flareups of symptoms on the low-dose nortriptyline, but this may have been related to recent stressors as noted above. His gingival irritation is unlikely to be related to the nortriptyline, as I have not seen this as a side effect in my previous patients. Today we discussed increasing the dosage of nortriptyline to 20 mg at dinnertime, which may help with his sensation of hangover in the morning. He will let me know via portal message if he has recurrence of gingival irritation, at which point we will have to consider a different intervention. Otherwise I will see him back in 2 months for reevaluation and audiometric testing. [email or web address] Not available 11/01/2024 09:46:07 Plan of Treatment Reminders Order Date Submit Date Provider Last Modified By Organization Details Last Modified Time Details Appointments Hearing Test 2024 11:00A M Hearing Test Not available Not available Not available Test Results 10 2024 11:20A M EMMIE MCKEON MD Not available Not available Not available Lab None recorded. Referral None recorded. Procedures None recorded. Surgeries None recorded. Imaging None recorded. Medication Orders nortripty line 10 mg capsule 2024 025 [id number], [address] [facility], [place], [address], 11/01/2024 09:42:34 Patient TargetsNo targets recorded. Patient InstructionsNo instructions recorded. Reason for Referral None Reported. Problems Name Problem SNOMED Code Status Onset Date Resolution Date Notes Provider Name and Address Organization Details Recorded Time Sensorin eural hearing loss of bilatera l ears 644748254 Active 2021 Sensorin eural hearing loss, bilatera l; Note: Date Diagnose d: 2 10:46 AM (H90.3) Not Available [facility] 4 02:20:52 Benign paroxysm al position al vertigo 531966945 Completed 202104/22/2024 Benign paroxysm al vertigo, unspecif ied ear; Note: Date Diagnose d: 2 10:49 AM (H81.10) Not Available [facility] 4 02:20:50 Vertigo of central origin 54478317 Active 2022 Vertigo of central origin; Note: Date Diagnose d: 3 11:35 AM (H81.4) Not Available [facility] 4 02:20:09 Disorder of nasal sinus 4496548 Active 2021 Perforat ion of nasal septum NOS; Note: Date Diagnose d: 2 10:46 AM (J34.89) Not Available [facility] 4 02:20:07 Disorder of the nose 66346170 Active 2021 Perforat ion of nasal septum NOS; Note: Date Diagnose d: 2 10:46 AM (J34.89) Not Available [facility] 4 02:20:07 Refracto ry migraine 133600643 Active 2022 Other migraine , intracta ble, without status migraino sumit; Note: Date Diagnose d: 3 11:35 AM (G43.819 ) Not Available [facility] 4 02:20:36 Bilatera l tinnitus 09039606098 02 Active 2021 Tinnitus , bilatera l; Note: Date Diagnose d: 2 10:46 AM (H93.13) Not Available [facility] 4 02:20:16 M? ? ?ni? ? ?re's disease 74067657 Active 2022 Meniere' s disease, left ear; Note: Date Diagnose d: 07/16/20 23 8:57 AM (H81.02) Not Available [facility] 4 02:19:58 Impacted cerumen of bilatera l ears 11538599975 80043 Active 2023 EMMIE MCKEON MD [address] [facility],[address], [address] , [facility] - [facility] 4 10:31:01 Problem Notes None recorded. Procedures Surgical History Date Name Laterality Status Provider Name and Address Organization Details Recorded Time 5 Cerumen removal with microscope bilateral completed EMMIE MCKEON MD [address] [place] [address],[address], [address], [place] - [facility] 11/01/2024 09:47:06 4 Air & Speech Audio with Tymps (03681, 98652 & 71370) completed EMILY BILL [address] [place] [address],[address], [address], [facility] - [facility] 09/15/2024 09:41:13 4 Comp Audio with Tymps (97897 & 49931) completed EMILY SOLORIO [address] [place] [address],[address], [address], [facility] - [facility] 03/15/2024 09:20:28 4 Cerumen removal with microscope bilateral completed EMMIE MCKEON MD [address] [facility],[address], [address], [place] - [facility] 03/15/2024 10:24:32 Kidney Stone Removal completed Genny Draper [place] - [facility] 03/15/2024 09:43:01 Imaging Results None recorded. Procedure Notes None recorded. Medical Equipment None Reported. Allergies No known drug allergies Medications Name Sig Start Date Stop Date Status Note LastModified by Organization Details LastModified Time triamtere ne 37.5 mg-hydroc hlorothia zide 25 mg capsule Take 1 capsule by mouth once a day 11/18 completed Medicati on ID: [id number] B rand Name: triamter kristin-hydr ochlorot hiazid S end Method: E-Prescr ibed Sub s Allowed: subs OK Medic ationGen ericName : triamter kristin-hydr ochlorot hiazid Not Available Not Available Not Available nortripty line 10 mg capsule Take 2 capsules every day by oral route at dinner. 2024 active Not Available Not Available Not Avai lable Vitals Date Recorded Body height Body mass index (BMI) Body weight Provider Name and Address Organization Details Last Updated DateTime 11/01/2024 177.8 cm 29.4 kg/m2 56811.44 g Gracie Zambrano [place] - [facility] 11/01/2024 09:28:36 Social History None recorded. Functional Status None recorded. Mental Status None recorded. Family History Nothing Reported. Medical History Condition Response Hearing Loss Y Past Encounters Encounter ID Performer Location Encounter Start Date Encounter Closed Date Diagnosis/Indication Diagnosis SNOMED-CT Code Diagnosis ICD10 Code Diagnosis Note [id number] EMMIE MCKEON MD [facility] [address] [address] 11/01/2024 08:44:57 11/01/2024 09:45:44 Sensorineural hearing loss of bilateral ears 967270136 H90.3 Patient will continue with full-time use of binaural amplificat ion. M? ? ?ni? ? ?re's disease 30560427 H81.02 Refractory migraine 4238 49231 G43.819 Vertigo of central origin 28289355 H81.4 Impacted c erumen of bilateral ears 2105769643 171554 H61.23 Cerumen disimpacte d bilaterall y. Recommende d use of warm water irrigation s to prevent impactions due to hearing aid use. Recommende d against use of Q-tips Health Concerns Section Related Observation LastModified by Organization Detai ls LastModified Time None Recorded Concern Status LastModified by Organization Details LastModified Time None Recorded Payers Encounter Date Sequence Insurance Name Policy Number Policy Santos Covered Member ID Santos Member ID Guarantor Name 11/01/2024 1 [facility]ALTH NET PLAN (MEDICAID HMO) STEFANIE Oliverio Deluna [id number] Oliverio Deluna Notes Date Note Type Note Provider Name and Address Organization Details Recorded Time 11/01/2024 text/html Patient with lik ganesh combination of vestibular migraine and left-sided M? ? ?ni? ? ?re's disease, intolerant of triamterene/hydrochl orothiazide. Patient had some response to identification and elimination of migraine triggers as well as use of magnesium and vitamin B2. Due to persistent symptoms we elected to start him on low-dose nortriptyline, 10 mg at bedtime which was started at the end of August 2024. Patient reports that he took the nortriptyline for about 5 weeks, but stopped about a week ago. He was having some gingival irritation that he thought might be related to the nortriptyline. He has been having some flareup of symptoms, but this may have been related to the stress of a recent relationship break-up as well as the illness of his mother. He has some chicken salad the other night and had some stomach irritation but not true vertigo. He continues to have fullness sensation in both ears. EMMIE MCKEON MD [address] [place] [address], [phone], [facility] - [facility] 11/01/2024 09:47:45
--- OUTSIDE RECORDS SUMMARY | 2024-11-28 07:23 | XMS_ITS | Data Portability ---
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 In addition, his balance disturbance pattern is much more likely to represent vestibular migraine than M? ? ?ni? ? ?re's disease. I have recommended we initiate low-dose [...] able to stabilize the underlying neurological phenomenon. [email or web address] Not available 09/15/2024 10:15:42 11/01/2024 11/01/2024 Patient with combination of M? [...] 2 months for reevaluation and audiometric testing. [email or web address] Not available 11/01/2024 09:46:07 Plan of Treatment [...] nortripty line 10 mg capsule 2024 025 [facility], [address] [place], [address], 11/01/2024 09:42:34 nortripty line 10 mg capsule 2023 024 [facility], [address] [place], [address], 09/15/2024 10:10:22 Patient TargetsNo targets recorded. Patient InstructionsNo instructions recorded. Reason for Referral None Reported. Results Created Date Observation Date Name Description Value Unit Range Abnormal Flag Note LastModifiedBy Organization Detail LastModifiedTime 03/16/20 24 audio gram No observ ation record ed. [email or web address] Not Available 02/20 16:31:06 05/12/20 24 03/15/2024 imagi ng/di agnos tic resul t No observ ation record ed. [email or web address] Not Available 18:56:54 05/12/20 24 06/02/2023 imagi ng/di agnos tic resul t No [...] ation record ed. [email or web address] Not Available 18:57:21 05/12/2007/22/2022 imagi ng/di agnos tic resul t No [...] eural hearing loss of bilatera l ears 685169828 Active 2021 Sensorin eural hearing loss, bilatera l; Note: Date Diagnose d: 2 10:46 AM (H90.3) Not Available [facility] 4 02:20:52 Benign paroxysm al position al vertigo 401607104 Completed 202104/22/2024 Benign paroxysm al vertigo, unspecif ied ear; Note: Date Diagnose d: 2 10:49 AM (H81.10) Not Available [facility] 4 02:20:50 Vertigo of central origin 00671035 Active 2022 Vertigo of central origin; Note: Date Diagnose d: 3 11:35 AM (H81.4) Not Available [facility] 4 02:20:09 Disorder of nasal sinus 3157635 Active 2021 Perforat ion of nasal septum NOS; Note: Date Diagnose d: 2 10:46 AM (J34.89) Not Available [facility] 4 02:20:07 Disorder of the nose 65644430 Active 2021 Perforat ion of nasal septum NOS; Note: Date Diagnose d: 2 10:46 AM (J34.89) Not Available [facility] 4 02:20:07 Refracto ry migraine 306845972 Active 2022 Other migraine , intracta ble, without status migraino sumit; Note: Date Diagnose d: 3 11:35 AM (G43.819 ) Not Available [facility] 4 02:20:36 Bilatera l tinnitus 57520797245 02 Active 2021 Tinnitus , bilatera l; Note: Date Diagnose d: 2 10:46 AM (H93.13) Not Available [facility] 4 02:20:16 M? ? ?ni? ? ?re's disease 25173432 Active 2022 Meniere' s disease, left ear; Note: Date Diagnose d: 07/16/20 23 8:57 AM (H81.02) Not Available [facility] 4 02:19:58 Impacted cerumen of bilatera l ears 29719674794 96278 Active 2023 EMMIE MCKEON MD [address] [facility],[place] [address], [place], [address] , [place] - [facility] 4 10:31:01 Problem Notes None recorded. Procedures Surgical History Date Name Laterality Status Provider Name and Address Organization Details Recorded Time 5 Cerumen removal with microscope bilateral completed EMMIE MCKEON MD [address] [facility],[address], [address], [place] - [facility] 11/01/2024 09:47:06 4 Air & Speech Audio with Tymps (90875, 85473 & 42485) completed EMILY BILL [address] [place] [address],[address], [address], [place] - [facility] 09/15/2024 09:41:13 4 Comp Audio with Tymps (66796 & 23980) completed EMILY SOLORIO [address] [place] [address],[address], [address], [place] - [facility] 03/15/2024 09:20:28 4 Cerumen removal with microscope bilateral completed EMMIE MCKEON MD [address] [facility],[address], [address], [place] - [facility] 03/15/2024 10:24:32 Kidney Stone Removal completed Genny Draper [place] - [facility] 03/15/2024 09:43:01 Imaging Results Imaging Date Name Status LastModified by Organiz ation Details LastModified Time 03/16/2024 audiogram completed [email or web address] Information n ot available 03/16/2024 16:31:06 03/15/2024 [...] a day 11/18 completed Medicati on ID: [id number] B rand Name: triamter kristin-hydr ochlorot hiazid [...] Updated DateTime 03/15/2024 177.8 cm 29.4 kg/m2 46153.44 g Genny Draper [place] - [facility] 03/15/2024 09:42:31 Date Recorded Body height Body mass index (BMI) Body weight Provider Name and Address Organization Details Last Updated DateTime 09/15/2024 177.8 cm 29.4 kg/m2 19812.44 g Brynn Johnson [facility] 09/15/2024 09:47:17 Date Recorded Body height Body mass index (BMI) Body weight Provider Name and Address Organization Details Last Updated DateTime 11/01/2024 177.8 cm 29.4 kg/m2 53668.44 g Gracie Zambrano [facility] 11/01/2024 09:28:36 Social History None recorded. Functional Status None recorded. Mental Status None recorded. Family History Nothing Reported. Medical History Condition Response Hearing Loss Y Past Encounters Encounter ID Performer Location Encounter Start Date Encounter Closed Date Diagnosis/Indication Diagnosis SNOMED-CT Code Diagnosis ICD10 Code Diagnosis Note [id number] EMMIE MCKEON MD [facility] [address] [address] 03/15/2024 09:07:21 03/15/2024 10:34:34 M? ? ?ni? ? ?re's disease 42124083 H81.02 Refractory migraine 4238 33546 G43.819 Vertigo of central origin 07151980 H81.4 Sensorineu ral hearing loss of bilateral ears 450259564 H90.3 Right Ear:Modera te sloping to a profound SNHL with fair speech discrimina tion.Type A tympanogra m.Left Ear:Modera tely-sever e sloping to a severe SNHL with good speech discrimina tion.Type A tympanogra m. Bilateral tinnitus 54287 55928 102 H93.13 Impacted c erumen of bilateral ears 9379546089 070029 H61.23 [id number] EMMIE MCKEON MD [facility] [address] [address] 09/15/2024 08:53:08 09/15/2024 10:18:47 M? ? ?ni? ? ?re's disease 60171732 H81.02 Refractory migraine 4238 97599 G43.819 Vertigo of central origin 80284387 H81.4 Bilateral tinnitus 64378 05445 102 H93.13 Sensorineu ral hearing loss of bilateral ears 427906459 H90.3 Audiologic al evaluation results: Right ear: [...] Cou ld not maintain a hermetic seal}} [id number] EMMIE MCKEON MD [facility] [address] [place] [address] 11/01/2024 08:44:57 11/01/2024 09:45:44 Sensorineural hearing loss of bilateral ears 782148670 H90.3 Patient will continue with full-time use of binaural amplificat ion. M? ? ?ni? ? ?re's disease 52523616 H81.02 Refractory migraine 4238 21591 G43.819 Vertigo of central origin 74358158 H81.4 Impacted c erumen of bilateral ears 5357475463 453413 H61.23 Cerumen disimpacte d bilaterall y. Recommende [...] Santos Member ID Guarantor Name 03/15/2024 1 [facility] (MEDICAID HMO) STEFANIE Deluna [id number] Oliverio Deluna 09/15/2024 1 [facility] (MEDICAID HMO) STEFANIE Deluna [id number] Oliverio Deluna 11/01/2024 1 [facility] (MEDICAID HMO) STEFANIE Deluna [id number] Oliverio Deluna Notes Date Note Type Note Provider Name and Address Organization Details Recorded Time 03/15/2024 text/html 63-year-old male with likely combination of vestibular migraine and left-sided M? ? ?ni? ? ?re's disease who turns today for reevaluation. Could not tolerate triamterene/hydrochl orothiazide due to lightheadedness. Patient had significant improvement with symptoms following migraine diet as well as magnesium and vitamin B2 and turmeric supplementation. Using binaural amplification dispensed at [facility] audiology. Patient comes back for reevaluation and [...] fluctuating hearing loss day-to-day EMMIE MCKEON MD [address] [place] [address], [address], [facility] 03/15/2024 10:31:37 09/15/2024 text/html 63-year-old male with likely combination of vestibular migraine and left-sided M? ? ?ni? ? ?re's disease who turns today for reevaluation. Could not tolerate triamterene/hydrochl orothiazide due to lightheadedness. Patient had significant improvement with symptoms following migraine diet as well as magnesium and vitamin B2 and turmeric supplementation. Using binaural amplification dispensed at [facility] audiology. Patient comes back for reevaluation and [...] and loud noise exposure. EMMIE MCKEON MD [address] [place] [address], [place], [address], [facility] 09/15/2024 10:16:01 11/01/2024 text/html Patient with lik ganesh combination [...] sensation in both ears. EMMIE MCKEON MD [address] [place] [address], [place], [address], [facility] - [facility] 11/01/2024 09:47:45
[2024-11-28 10:55] LABS: Alanine Aminotransferase 41 U/L (0-40); Albumin Level 4.1 g/dL (3.5-5.0); Alkaline Phosphatase 65 U/L (39-117); Anion Gap 8 (12-20); Aspartate Amino Transferase 30 U/L (5-37); Bilirubin Total 0.7 mg/dL (0.0-1.0); Blood Urea Nitrogen 18 mg/dL (9-16); Carbon Dioxide 28 mmol/L (22-29); Chloride 109 mmol/L (96-108); Cholesterol 194 mg/dL (<200); Estimated Glomerular Filt Rate > 60; Glucose Fasting 86 mg/dL (60-99); HDL Cholesterol 37 mg/dL (>40); LDL Cholesterol Calculated 127 mg/dL (<100); Sodium 141 mmol/L (135-145); Triglycerides 153 mg/dL (<150)
== END 2024-11-28 07:21 | disposition home or self-care (01) ==
LOC: HO.HMGCLDS 07:20
PROVIDERS: PCP Nurse Practitioner Family; Visit Provider Nurse Practitioner Family
DX: Z00.00 Encounter for general adult medical examination without abnormal findings (principal); E78.5 Hyperlipidemia, unspecified; H81.09 Meniere's disease, unspecified ear; K76.9 Liver disease, unspecified
CPT/HCPCS: 36415; 80053; 80061; 96127

== ENCOUNTER 2024-11-28 08:01 | Outpatient (AMB) | payer OTHER, SELFPAY ==
--- OUTSIDE RECORDS SUMMARY | 2024-11-28 08:07 | XMS_ITS | Clinical Summary ---
Author Organization [facility] Address [address] [place] [address] Care Team Providers Care Gas Well Drilling Manager Name Role Phone Sb Muñiz Primary Care Provider [phone] Allergies No known active allergies Medications * [...] complete this topic Zoster (Zostavax) Discontinued Insurance [facility] FEE FOR SERVICE HMO * Guarantor: [employer] Account Type Relation to Patient Date of Phone Billing Address [facility] [employer] PAYABLE [address] [place] [address] Care Teams Gas Well Drilling Manager Relationship Specialty Start Date End Date Sb Muñiz [address] [address] PCP - General Internal Medicine 12/02/11
[2024-11-28 08:15] VITALS: BP 124/80; PULSE 73; TEMP 36.6; O2SAT 95; BMI 30.9
--- NOTE | 2024-11-28 08:15 | MHC.PC.OV ---
Vital Signs 11/28/24 08:15 Height 5 ft 9.5 in Weight 212 lb BMI 30.9 BP 124/80 Blood Pressure Location Lt brachial Position Sitting Pulse 73 Pulse Source Pulse Oximeter Temp 97.9 F Temp Source Oral Pulse Oximetry (%) 95 Intake Visit Reasons: ANNUAL PE Intake Note: pt is here for annual exam Cage Maker Machine Required: No Accompanied by: Self / Same As Patient Allergies No Known Allergies Allergy (Verified 11/28/24 08:57) Medication List - Last Reconciled 11/28/24 by SHABNAM BellP- alfuzosin ER 10 mg PO BEDTIME 30 days bempedoic acid-ezetimibe 180-10 mg 1 tab PO DAILY lovastatin 20 mg PO DAILY magnesium oxide 400 mg PO DAILY nortriptyline 10 mg PO DAILY riboflavin (vitamin B2) 400 mg PO DAILY Tobacco use date assessed: 11/28/24 Fall risk assessment: No Falls in past year Last assessed Fall Risk: 11/28/24 Dental Screening Dental Screen Date: 11/28/24 Did you have a dental visit in the last 12 months?: Yes Did you have a dental problem in the last 6 months where you did not have access to dental care?: No Was dental information given to patient?: Patient has dentist HPI ANNUAL PE HPI Details History of Present Illness The patient is a 63-year-old male presenting with a follow-up for Meniere's Disease management. He describes persistent aural fullness attributed to Meniere's Disease, overseen by Dr. Quiroz, his ENT provider. There is noted improvement in his symptoms, particularly reduced dizziness, corresponding with adherence to a low-sodium diet, an ongoing intervention. The patient recently underwent laboratory testing, with results pending. He denies other gastrointestinal or cardiovascular symptoms and notes his colon screening is current. The presence of vitiligo in the genital region and hands was also reported but is considered unrelated to his primary concern. Pt also sees a urologist Health Maintenance - Adherence to low-sodium diet to manage Meniere?s Disease symptoms. - Colon cancer screening is up to date. - Awaiting results from recent laboratory work. Social History - Currently practicing dietary management regarding sodium intake for Meniere's Disease. Review of Systems - Ears/Nose/Throat: Reports chronic ear fullness. - Gastrointestinal: Denies chest pain, nausea, vomiting, diarrhea, blood in stool, and constipation. - Cardiovascular: Denies shortness of breath. - Integumentary: Reports vitiligo affecting genitalia and hands bilaterally. Physical Exam General: Cooperative, healthy appearing, comfortable, no acute distress and well developed Orientation: Patient oriented x3 Limitations: No limitations Head: Normal to inspection Ears: Hearing grossly normal bilaterally, but reports chronic fullness related to Meniere's disease Nose: Normal external nose present Face and sinus: Normal facial exam Eyes: Appearance normal, both eyes and all related structures Neck: Normal visual inspection and Yes full ROM Respiratory: Normal respiratory effort and able to speak in complete sentences. Clear to auscultation bilaterally Cardiovascular: Regular rate and rhythm. Normal S1 and S2 GI: Normal to inspection. Soft to palpation and nontender Skin: Vitiligo noted on the penis, groin region, and bilaterally on hands Neuro: Patient oriented x3 Extremities: Normal to inspection Results Plan Ongoing management of Meniere's Disease focuses on monitoring dietary sodium reduction's effect on symptom control, specifically dizziness and aural fullness. We await lab results to rule out additional conditions that might affect current management or symptoms. The vitiligo will be observed for any changes that may necessitate intervention. Discussion Notes During the visit, we reviewed the patient's management plan for Meniere's Disease with an emphasis on dietary sodium intake reduction. I have communicated the need for ongoing dietary management and explained that the current approach has yielded some improvement. We await recent laboratory results which may provide further guidance. I also discussed the benign nature of his reported vitiligo, the need for vigilance, and the importance of contacting the clinic should there be changes in his skin condition. Patient Instructions - Continue low-sodium diet to help manage your symptoms of Meniere's Disease. - Monitor any changes in skin condition related to vitiligo and report them if necessary. - Await lab results and follow up as directed. - Keep track of your symptoms and note any changes to discuss in future visits. [facility] Medical History Internal hemorrhoids Vertigo Hearing loss Surgical History Status post colonoscopy Social History Housing: House Patient Tobacco Use Status: Never used Tobacco e-Cigarette/Vaping Use: Never Used Second Hand Smoke Exposure: No Current occupational status: employed Current occupation: [employer] Cognitive needs: No Hearing needs: No Vision needs: No Questionnaire PHQ-9 Over the last 2 weeks, how often have you been bothered by any of the following problems? 1. Little interest or pleasure in doing things: not at all 2. Feeling down, depressed, or hopeless: not at all 3. Trouble falling or staying asleep, or sleeping too much: several days 4. Feeling tired or having little energy: several days 5. Poor appetite or overeating: not at all 6. Feeling bad about yourself - or that you are a failure or have let yourself or your family down: several days 7. Trouble concentrating on things, such as reading the newspaper or watching television: several days 8. Moving or speaking so slowly that other people could have noticed. Or the opposite - being so fidgety or restless that you have been moving around a lot more than usual: several days 9. Thoughts that you would be better off or of hurting yourself in some way: not at all Total score: 5 Depression Screening Interpretation: Negative Depression Screening Done: Yes 52289 - PHQ-9 Billing: Yes Source: Developed by Drs. Glen Gomez, Ana Maria Taylor, Lance Tobais and colleagues, with an educational nahomy from [employer]. Thrive Questionnaire Date Thrive assessed: 11/28/24 I am a: Patient What is your living situation today?: I have a steady place to live Within the past 12 months, did the food you bought not last and you didn't have the money to get more?: I choose not to answer this question Within the past 12 months, did you worry whether your food would run out before you got money to buy more?: I choose not to answer this question Do you have trouble paying for medicines?: I choose not to answer this question Do you have trouble getting transportation to medical appointments?: I choose not to answer this question Do you have trouble paying your heating and electricity bill?: I choose not to answer this question Do you have trouble taking care of your child, family member or friend?: I choose not to answer this question Do you have trouble with day-to-day activities such as bathing, preparing meals, shopping, managing finances, etc.?: I choose not to answer this question Are you currently unemployed and looking for a job?: I choose not to answer this question Are you interested in more education?: I choose not to answer this question Please select the resources that you would like help with: None Currently or been in a relationship where the following occur: I choose not to answer THRIVE Score: 0 AUDIT C Alcohol Use Questionnaire (AUDIT-C) 1. How often do you have a drink containing alcohol?: Never 3. How often do you have six or more drinks on one occasion?: Never Total Score: 0 Score Reviewed/Action Taken: Yes MILENA-7 AMB Questionnaire MILENA-7 Date MILENA - 7 assessed: 11/28/24 Feeling nervous, anxious, or on edge: 1 = Several days Not being able to stop or control worryin = Several days Worrying too much about different things: 1 = Several days Trouble relaxin = Several days Being so restless that it is hard to sit still: 1 = Several days Becoming easily annoyed or irritable: 1 = Several days Feeling afraid as if something awful might happen: 1 = Several days Total MILENA-7 score (0-4 normal; 5-9 mild; 10-14 moderate; 15-21 severe): 7 Source: Developed by Drs. Glen Gomez, Ana Maria Taylor, Lance Tobias and colleagues, with an educational nahomy from [employer]. MILENA-7 Assessment Billing MILENA-7 Assessment Tool: MILENA-7 Assessment 72589 Physical exam (Primary Care) Vital Signs: Last Vital Signs Temp 97.9 F 11/28/24 08:15 Pulse 73 11/28/24 08:15 BP 124/80 11/28/24 08:15 Pulse Ox 95 11/28/24 08:15 BMI result Body Mass Index 30.9 Tobacco/Smoking Status: Tobacco use Status Tobacco use date assessed 11/28/24 11/28/24 08:19 Patient Tobacco Use Status Never used Tobacco 11/28/24 08:19 e-Cigarette/Vaping Use Never Used 11/28/24 08:19 PHQ-9: PHQ-9 Score PHQ-9: Total score 5 11/28/24 08:58 Depression Screening Interpretation: Negative Thrive Assessment: Date of Thrive Assessment Date Thrive assessed 11/28/24 11/28/24 08:19 Currently or been in a relationship where the following occur: I choose not to answer Coding Level of Care Code Est Pt Prev Care 40-64y(91913) Diagnoses Menieres disease H81.09 Physical exam Z00.00 Liver lesion K76.9 Additional Codes MILENA-7 Assessment Billing - MILENA-7 Assessment Tool: MILENA-7 Assessment 54432 ([id number]) PHQ-9 - 83235 - PHQ-9 Billing: Yes ([id number]) Assessment & Plan Assessment & Plan (1) Menieres disease: Code(s): H81.09 - Meniere's disease, unspecified ear Category: Medical (2) Physical exam: Code(s): Z00.00 - Encounter for general adult medical examination without abnormal findings Category: Medical (3) Liver lesion: Code(s): K76.9 - Liver disease, unspecified Category: Medical Plan . Orders: Referrals Gastroenterology Referral K76.9 - Liver disease, unspecified Medications: Refilled lovastatin 20 mg PO DAILY 90 tabs 0RF bempedoic acid-ezetimibe 180-10 mg 1 tab PO DAILY 90 tabs 0RF
== END 2024-11-28 09:08 | disposition home or self-care (01) ==
PROVIDERS: PCP Nurse Practitioner Family; Visit Provider Nurse Practitioner Family
DX: H81.09 Meniere's disease, unspecified ear (principal); Z00.00 Encounter for general adult medical examination without abnormal findings; K76.9 Liver disease, unspecified

== ENCOUNTER 2025-01-03 08:29 | Outpatient (REF) | payer SELFPAY ==
--- OUTSIDE RECORDS SUMMARY | 2025-01-03 08:42 | XMS_ITS | Clinical Summary ---
Author Organization [facility] Address [address] [place] [address] Care Team Providers Care Marketing Professional Name Role Phone Sb Muñiz Primary Care Provider [phone] Allergies No known active allergies Medications * [...] RSV (1 - 1-dose 75+ series) 12/18/2034 Abdominal Aorta Imaging Discontinued HPV Vaccine Aged Out No longer eligi [...] complete this topic Zoster (Zostavax) Discontinued Insurance [facility] FEE FOR SERVICE HMO * Guarantor: [employer] Account Type Relation to Patient Date of Phone Billing Address [employer] PA[employer] [address] [place] [address] Care Teams Marketing Professional Relationship Specialty Start Date End Date Sb Muñiz [facility] [address] [place] [address] PCP - General Internal Medicine 12/02/11
--- OUTSIDE RECORDS SUMMARY | 2025-01-03 08:42 | XMS_ITS | Data Portability ---
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 [email or web address] Not available 09/15/2024 10:15:42 11/01/2024 11/01/2024 Patient [...] 2 months for reevaluation and audiometric testing. [email or web address] Not available 11/01/2024 09:46:07 Plan of Treatment [...] nortripty line 10 mg capsule 2024 025 FIT[id number], [address] [place], [address], 11/01/2024 09:42:34 nortripty line 10 mg capsule 2023 024 [facility]ZHU[id number], [address] [place], [address], 09/15/2024 10:10:22 Patient TargetsNo targets recorded. Patient InstructionsNo instructions recorded. Reason for Referral None Reported. Results Created Date Observation Date Name Description Value Unit Range Abnormal Flag Note LastModifiedBy Organization Detail LastModifiedTime 03/16/20 24 audio gram No observ ation record ed. [email or web address] Not Available 02/20 16:31:06 05/12/20 24 03/15/2024 [...] eural hearing loss of bilatera l ears 503702124 Active 2021 Sensorin eural hearing loss, bilatera l; Note: Date Diagnose d: 2 10:46 AM (H90.3) Not Available [facility] 4 02:20:52 Benign paroxysm al position al vertigo 602955608 Completed 202104/22/2024 Benign paroxysm al vertigo, unspecif ied ear; Note: Date Diagnose d: 2 10:49 AM (H81.10) Not Available [facility] 4 02:20:50 Vertigo of central origin 85981933 Active 2022 Vertigo of central origin; Note: Date Diagnose d: 3 11:35 AM (H81.4) Not Available [facility] 4 02:20:09 Disorder of nasal sinus 3895294 Active 2021 Perforat ion of nasal septum NOS; Note: Date Diagnose d: 2 10:46 AM (J34.89) Not Available [facility] 4 02:20:07 Disorder of the nose 54263566 Active 2021 Perforat ion of nasal septum NOS; Note: Date Diagnose d: 2 10:46 AM (J34.89) Not Available [facility] 4 02:20:07 Refracto ry migraine 681632539 Active 2022 Other migraine , intracta ble, without status migraino sumit; Note: Date Diagnose d: 3 11:35 AM (G43.819 ) Not Available [facility] 4 02:20:36 Bilatera l tinnitus 66768336039 02 Active 2021 Tinnitus , bilatera l; Note: Date Diagnose d: 2 10:46 AM (H93.13) Not Available [facility] 4 02:20:16 M? ? ?ni? ? ?re's disease 02171522 Active 2022 Meniere' s disease, left ear; Note: Date Diagnose d: 07/16/20 23 8:57 AM (H81.02) Not Available [facility] 4 02:19:58 Impacted cerumen of bilatera l ears 89281693580 93835 Active 2023 EMMIE MCKEON MD 100 [facility],[address], [address] , [place] - [facility] 4 10:31:01 Problem Notes None recorded. Procedures Surgical History Date Name Laterality Status Provider Name and Address Organization Details Recorded Time 5 Cerumen removal with microscope bilateral active EMMIE MCKEON MD 100 [facility],[address], [address], [place] - [facility] 01/02/2025 13:30:04 5 Cerumen removal with microscope bilateral completed EMMIE MCKEON MD 100 [facility],[address], [address], [place] - [facility] 11/01/2024 09:47:06 4 Air & Speech Audio with Tymps (95410, 30684 & 48002) completed EMILY BILL [address] [place] [address],[address], [address], [place] - [facility] 09/15/2024 09:41:13 4 Comp Audio with Tymps (91469 & 91460) completed EMILY SOLORIO [address] [place] [address],[address], [address], [place] - [facility] 03/15/2024 09:20:28 4 Cerumen removal with microscope bilateral completed EMMIE MCKEON MD 100 [facility],[address], [address], [place] - [facility] 03/15/2024 10:24:32 Kidney Stone Removal completed Genny Draper [place] - [facility] 03/15/2024 09:43:01 Imaging Results Imaging Date Name Status LastModified by Organiz ation Details LastModified Time 03/16/2024 audiogram completed [email or web address] Information n ot available 03/16/2024 16:31:06 03/15/2024 [...] a day 11/18 completed Medicati on ID: [id number] B rand Name: triamter kristin-hydr ochlorot hiazid [...] Updated DateTime 03/15/2024 177.8 cm 29.4 kg/m2 55571.44 g Genny Draper [place] - [facility] 03/15/2024 09:42:31 Date Recorded Body height Body mass index (BMI) Body weight Provider Name and Address Organization Details Last Updated DateTime 09/15/2024 177.8 cm 29.4 kg/m2 80316.44 g Brynn Johnson [facility] 09/15/2024 09:47:17 Date Recorded Body height Body mass index (BMI) Body weight Provider Name and Address Organization Details Last Updated DateTime 11/01/2024 177.8 cm 29.4 kg/m2 22921.44 g Gracie Zambrano [facility] 11/01/2024 09:28:36 Social History None recorded. Functional Status None recorded. Mental Status None recorded. Family History Nothing Reported. Medical History Condition Response Hearing Loss Y Past Encounters Encounter ID Performer Location Encounter Start Date Encounter Closed Date Diagnosis/Indication Diagnosis SNOMED-CT Code Diagnosis ICD10 Code Diagnosis Note [id number] EMMIE MCKEON MD [facility] [address] [address] 03/15/2024 09:07:21 03/15/2024 10:34:34 M? ? ?ni? ? ?re's disease 30385623 H81.02 Refractory migraine 4238 40596 G43.819 Vertigo of central origin 93453582 H81.4 Sensorineu ral hearing loss of bilateral ears 643488091 H90.3 Right Ear:Modera te sloping to a profound SNHL with fair speech discrimina tion.Type A tympanogra m.Left Ear:Modera tely-sever e sloping to a severe SNHL with good speech discrimina tion.Type A tympanogra m. Bilateral tinnitus 06743 72806 102 H93.13 Impacted c erumen of bilateral ears 2536533747 056745 H61.23 [id number] EMMIE MCKEON MD [facility] [address] [address] 09/15/2024 08:53:08 09/15/2024 10:18:47 M? ? ?ni? ? ?re's disease 74850411 H81.02 Refractory migraine 4238 19331 G43.819 Vertigo of central origin 76196761 H81.4 Bilateral tinnitus 76958 25680 102 H93.13 Sensorineu ral hearing loss of bilateral ears 820814724 H90.3 Audiologic al evaluation results: Right ear: [...] Cou ld not maintain a hermetic seal}} [id number] EMMIE MCKEON MD [facility] [address] [address] 11/01/2024 08:44:57 11/01/2024 09:45:44 Sensorineural hearing loss of bilateral ears 072123010 H90.3 Patient will continue with full-time use of binaural amplificat ion. M? ? ?ni? ? ?re's disease 94072010 H81.02 Refractory migraine 4238 32973 G43.819 Vertigo of central origin 61837047 H81.4 Impacted c erumen of bilateral ears 7286275729 776579 H61.23 Cerumen disimpacte d bilaterall y. Recommende [...] Santos Member ID Guarantor Name 03/15/2024 1 [facility] PLAN (MEDICAID HMO) STEFANIE Deluna [id number] Oliverio Deluna 09/15/2024 1 [facility] PLAN (MEDICAID HMO) STEFANIE Deluna [id number] Oliverio Deluna 11/01/2024 1 [facility] PLAN (MEDICAID HMO) STEFANIE Deluna [id number] Oliverio Deluna Notes Date Note Type Note [...] turmeric supplementation. Using binaural amplification dispensed at [facility]iology. Patient comes back for reevaluation and [...] fluctuating hearing loss day-to-day EMMIE MCKEON MD 100 [facility],[address], [address], [place] - [facility] 03/15/2024 10:31:37 09/15/2024 text/html 63-year-old male with likely combination of vestibular migraine and left-sided M? ? ?ni? ? ?re's disease who turns today for reevaluation. Could not tolerate triamterene/hydrochl orothiazide due to lightheadedness. Patient had significant improvement with symptoms following migraine diet as well as magnesium and vitamin B2 and turmeric supplementation. Using binaural amplification dispensed at [facility]iology. Patient comes back for reevaluation and [...] and loud noise exposure. EMMIE MCKEON MD 100 [facility],[place] [address], [place], [address], [place] - [facility] 09/15/2024 10:16:01 11/01/2024 text/html Patient with lik [...] sensation in both ears. EMMIE MCKEON MD [address] [place] [address], [place], [address], [facility] - [facility] 11/01/2024 09:47:45
== END 2025-01-03 08:30 | disposition home or self-care (01) ==
LOC: HO.HAP 08:29
PROVIDERS: Visit Provider Nurse Practitioner Family
DX: Z13.89 Encounter for screening for other disorder (principal)

== ENCOUNTER 2025-01-19 13:49 | Outpatient (AMB) | payer OTHER, SELFPAY ==
--- NOTE | 2025-01-19 13:51 | A.OFFVIS_ITS ---
Intake Visit Reasons: 3M PVR Intake Note: Patient presents today for a 3 month follow up/PVR Urology Medications: none Blood Thinner: none PVR:19ml Security System Sales Consultant Required: No Accompanied by: Self / Same As Patient Allergies No Known Allergies Allergy (Verified 01/20/25 00:30) Medication List - Last Reconciled 01/20/25 by ANGELA Chung alfuzosin ER 10 mg PO BEDTIME 30 days lovastatin 20 mg PO DAILY magnesium oxide 400 mg PO DAILY nortriptyline 10 mg PO DAILY riboflavin (vitamin B2) 400 mg PO DAILY HPI Comments Details: Oliverio is a very pleasant 64-year-old male patient of Dr. Valdovinos. He has a past medical history of Meniere's disease, vertigo, and hearing loss. He presents to the office today for follow-up of his renal cysts in lower urinary tract symptoms. In discussion with the patient today reports to be doing and feeling well. He discusses having discontinued alfuzosin as prescribed during last office visit as he did not note any improvement in episodes of nocturia he experiences. He also reports noting abdominal pain however is on sure as if this was related to alfuzosin or another medication he started around the same time. We discussed potential side effects of alfuzosin. He has previously trialed Flomax however felt this caused him dizziness and worsened his issues with his vertigo and Meniere's disease. Previous workup has included a ret roperitoneal ultrasound 11/15 noting bilateral kidneys with no caluli and or hydronephrosis. bilateral thin-walled possible Bosniak 1 cysts, largest on the left measuring 3.2 x 2.8 x 2.7 cm. The bladder is unremarkable. Prevoid bladder volume 285. Post void bladder volume is 60ml's. Prostate measures 4.7 x 4.5 x 4.4 cm. No acute findings. He continues to report episodes of nocturia 2-3 times per night however it is not always frequent. In review of patient's chart PSAs are as follows: 06/12 0.9, 08/13 1.4, 06/14 1.2 He otherwise denies urinary urgency, urinary frequency, incontinence, hematuria, dysuria, foul smelling urine, changes to urinary stream, flank pain, fever, and or chills. In office urinalysis results reviewed with the patient today. PVR 19 mL. When asked he denies any signs and symptoms of sleep apnea. We discussed potential causes of nocturia as well as further treatment options. He otherwise offers no other issues or concerns at this time. [facility] Medical History Internal hemorrhoids Vertigo Hearing loss Surgical History Status post colonoscopy Social History Housing: House Patient Tobacco Use Status: Never used Tobacco e-Cigarette/Vaping Use: Never Used Second Hand Smoke Exposure: No Current occupational status: employed Current occupation: [email or web address] Cognitive needs: No Hearing needs: No Vision needs: No Review of Systems Const All systems reviewed & are unremarkable except as noted in HPI and below Physical Exam Const General: cooperative, healthy appearing, comfortable, no acute distress, well developed, alert and awake Orientation/consciousness: patient oriented x3 Limitations: other limitations (Bilateral hearing aids-hearing impaired) HEENT Head: Yes normal to inspection, Yes normocephalic and Yes atraumatic Ears: hearing grossly normal bilaterally Eyes General: appearance normal, both eyes and all related structures Neck Neck: Yes normal visual inspection and Yes trachea midline Chest Chest palpation & inspection: normal inspection of the chest Resp Effort & Inspection: normal respiratory effort and able to speak in complete sentences Cardio Rate: regular rate GI Inspection: Yes normal to inspection General: Yes no CVA tenderness Back/Spine/Pelvis Back: no CVA tenderness Skin General skin exam: no rashes or lesions noted Neuro General: patient oriented x3 Extrem General: Yes normal to inspection Psych Appearance: grossly normal and well kempt Mental Status: mental status grossly normal Speech and movement: Normal speech and movement present and Clear speech present Affect: normal affect Attitude: cooperative Thought process: Normal thought process present Thought content: Normal thought content present Insight: Fair insight present (Psych) Judgement: Fair judgement present (Psych) Results AMB Urinalysis, Automated UA Leukoctes 0 Jaqueline/uL Last Edit by Alexa Oliveira on 01/19/25 15:18 UA Nitrite Negative Last Edit by Alexa Oliveira on 01/19/25 15:18 UA Urobilinogen 1 mg/dL Last Edit by Alexa Oliveira on 01/19/25 15:18 UA Protein 15 mg/dL Last Edit by Alexa Oliveira on 01/19/25 15:18 UA pH 5.5 Last Edit by Alexa Oliveira on 01/19/25 15:18 UA Blood 0 Mikel/uL Last Edit by Alexa Oliveira on 01/19/25 15:18 UA Specific [place] 1.030 Last Edit by Alexa Oliveira on 01/19/25 15:18 UA Ketone Positive Last Edit by Alexa Oliveira on 01/19/25 15:18 UA Bilirubin 0 mg/dL Last Edit by Alexa Oliveira on 01/19/25 15:18 UA Glucose 0 mg/dL Last Edit by Alexa Oliveira on 01/19/25 15:18 Results Reviewed Results Reviewed: Laboratory Last Values Urine pH (Auto) 5.5 01/19/25 15:11 Specific [place] (Auto) 1.030 01/19/25 15:11 Urine Protein (Auto) 15 mg/dL 01/19/25 15:11 Glucose (UA)(Auto) 0 mg/dL 01/19/25 15:11 Urine Ketones (Auto) Positive 01/19/25 15:11 Urine Blood (Auto) 0 Mikel/uL 01/19/25 15:11 Urine Nitrite (Auto) Negative 01/19/25 15:11 Urine Bilirubin (Auto) 0 mg/dL 01/19/25 15:11 Urine Urobilinogen (Auto) 1 mg/dL 01/19/25 15:11 Leukocyte Esterase (Auto) 0 Jaqueline/uL 01/19/25 15:11 Assessment & Plan Assessment & Plan (1) Renal cyst: Code(s): N28.1 - Cyst of kidney, acquired Category: Medical (2) Enlarged prostate: Code(s): N40.0 - Benign prostatic hyperplasia without lower urinary tract symptoms Category: Medical (3) Nocturia: Code(s): R35.1 - Nocturia Category: Medical Plan In office urinalysis results reviewed with the patient today; as noted above. PVR 17 mL. Stop alfuzosin. We discussed potential near future in office cystoscopy for further assessment evaluation. We discussed further treatment options of nocturia as well as potential causes of nocturia. We discussed continuing to limit fluids 2-3 hours prior to bed to decrease episodes of nocturia. He denies any signs or symptoms of sleep apnea. He reports feeling episodes of nocturia are manageable and would like to continue with surveillance monitoring at this time. Will obtain PSA in 6 months. Follow-up in 6 months with PSA and PVR; or sooner with any issues, concerns, and or questions. Orders: Orders Prostate Specific Antigen 6 Months N28.1 - Cyst of kidney, acquired, N40.0 - Benign prostatic hyperplasia without lower urinary tract symptoms, R35.1 - Noct uria AMB Urinalysis Automated 01/19/25 Z13.9 - Encounter for screening, unspecified AMB Post Void Residual by ultrasound 01/19/25 R35.1 - Nocturia Patient Instructions: The patient had an opportunity to ask questions regarding the treatment plan. All questions were answered. Physical exam, labs, and imaging were discussed and reviewed in detail. As well as risks, benefits, and discussion of treatment choices. No major barriers to understanding were identified. The patient expressed understanding and agreement with the above treatment plan. The patient was made aware they should contact our office by phone for worsening of their current condition, the appearance of new symptoms, or with any questions or concerns. Compliance is encouraged with any medications and follow up testing that is ordered. It is a privilege to be allowed the opportunity to participate in? your urological care.? Again, if you have any questions or concerns If you have any questions or concerns please do not hesitate to contact me. The office is [phone]. This note is constructed using voice recognition software. While every effort has been made to ensure accuracy swim instructor errors may have been included. Yours sincerely, ANGELA Chung Coding Level of Care Code Est Pt Level 3 (98500) Diagnoses Renal cyst N28.1 Enlarged prostate N40.0 Nocturia R35.1
--- OUTSIDE RECORDS SUMMARY | 2025-01-19 16:03 | XMS_ITS | Clinical Summary ---
Author Organization [facility] Address [address] [place] [address] Care Team Providers Care Solar Pool Heating Installer Name Role Phone Sb Muñiz Primary Care Provider [phone] Allergies No known active allergies Medications * [...] ( - 2023-2 5 season) 2024 Influenza (Season Ended) 2025 RSV (1 - 1-dose 75+ series) 12/18/2034 [...] complete this topic Zoster (Zostavax) Discontinued Insurance [facility] FEE FOR SERVICE HMO * Guarantor: [email or web address] Account Type Relation to Patient Date of Phone Billing Address [employer] [address] [place] [address] Care Teams Solar Pool Heating Installer Relationship Specialty Start Date End Date Sb Muñiz [facility] [address] [place] [address] PCP - General Internal Medicine 12/02/11
--- OUTSIDE RECORDS SUMMARY | 2025-01-19 16:04 | XMS_ITS | Data Portability ---
Author Organization [place] - [facility], Allergy Address [address] [address] Care Team Providers Care Photoengraving Photographer Name Role Phone MIRACLE WAY Primary Care Provider Assessment Encounter Date Assessment Date Assessment LastModified [...] his audiogram to take back to his kennel manager dog track at [facility] audiology to ensure that his hearing aids [...] in 6 months with hearing test first Not available 03/15/2024 10:30:18 09/15/2024 09/15/2024 Patient [...] able to stabilize the underlying neurological phenomenon. [email or web address] Not available 09/15/2024 10:15:42 11/01/2024 11/01/2024 Patient [...] 2 months for reevaluation and audiometric testing. 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 Patient is doing better with regards to symptoms on nortriptyline 20 mg at bedtime. No gingival irritation. Not sure if his urinary retention is related to the amitriptyline, he will speak with his urologist about this in more detail. Audiometric testing shows stable sensorineural hearing thresholds with fair speech discrimination bilaterally. He remains a good candidate for binaural amplification. I given him a copy of his audiogram to bring back to his kennel manager dog track at [facility] audiology to ensure that his hearing aids are adjusted to match his current level of hearing loss. He will continue on nortriptyline, as well as the vitamin B2, magnesium, and identification and illumination of migraine triggers. Follow-up in 6 months for reevaluation of hearing and symptom results. [email or web address] Not available 01/03/2025 11:57:01 Plan of Treatment Reminders Order Date Submit Date Provider Last Modified By Organization Details Last Modified Time Details Appointments Hearing Test 2024 09:00A M Hearing Test Not available Not available Not available Establish ed 10 2024 09:30A M EMMIE MCKEON MD Not available Not available Not available Lab None recorded. Referral None recorded. Procedures None recorded. Surgeries None recorded. Imaging None recorded. Medication Orders nortripty line 10 mg capsule 2024 025 [id number], [address] [facility], [place], [address], 11/01/2024 09:42:34 nortripty line 10 mg capsule 2023 024 [facility], [address] [facility], [place], [address], 09/15/2024 10:10:22 Patient TargetsNo targets recorded. Patient InstructionsNo instructions recorded. Reason for Referral None Reported. Results Created Date Observation Date Name Description Value Unit Range Abnormal Flag Note LastModifiedBy Organization Detail LastModifiedTime 03/16/20 audio gram No observ ation record ed. [email or web address] Not Available 02/20 16:31:06 05/12/20 24 03/15/2024 [...] ation record ed. [email or web address] Not Available 18:57:06 05/12/2007/22/2022 imagi ng/di agnos tic resul t [...] record ed. BARCODE Not Available 2023 17:51:38 01/04/20 25 audio gram No observ ation record ed. BARCODE Not Available 2024 13:33:23 01/05/20 25 audio gram No observ ation record ed. BARCODE Not Available 2024 11:48:33 Result Notes None recorded. Problems Name Problem SNOMED Code Status Onset Date Resolution Date Notes Provider Name and Address Organization Details Recorded Time Sensorin eural hearing loss of bilatera l ears 926496207 Active 2021 Sensorin eural hearing loss, bilatera l; Note: Date Diagnose d: 2 10:46 AM (H90.3) Not Available [facility] 4 02:20:52 Benign paroxysm al position al vertigo 468501309 Completed 202104/22/2024 Benign paroxysm al vertigo, unspecif ied ear; Note: Date Diagnose d: 2 10:49 AM (H81.10) Not Available [facility] 4 02:20:50 Vertigo of central origin 13659357 Active 2022 Vertigo of central origin; Note: Date Diagnose d: 3 11:35 AM (H81.4) Not Available [facility] 4 02:20:09 Disorder of nasal sinus 0926183 Active 2021 Perforat ion of nasal septum NOS; Note: Date Diagnose d: 2 10:46 AM (J34.89) Not Available [facility] 4 02:20:07 Disorder of the nose 26861904 Active 2021 Perforat ion of nasal septum NOS; Note: Date Diagnose d: 2 10:46 AM (J34.89) Not Available [facility] 4 02:20:07 Refracto ry migraine 861975873 Active 2022 Other migraine , intracta ble, without status migraino sumit; Note: Date Diagnose d: 3 11:35 AM (G43.819 ) Not Available [facility] 4 02:20:36 Bilatera l tinnitus 29976552813 02 Active 2021 Tinnitus , bilatera l; Note: Date Diagnose d: 2 10:46 AM (H93.13) Not Available [facility] 4 02:20:16 M? ? ?ni? ? ?re's disease 47316985 Active 2022 Meniere' s disease, left ear; Note: Date Diagnose d: 07/16/20 23 8:57 AM (H81.02) Not Available [facility] 4 02:19:58 Impacted cerumen of bilatera l ears 36279125642 44449 Active 2023 EMMIE MCKEON MD [address] [place] [address], [place], [address] , [facility] 4 10:31:01 Problem Notes None recorded. Procedures Surgical History Date Name Laterality Status Provider Name and Address Organization Details Recorded Time 5 Comp Audio with Tymps - 87786 & 43205 completed EMILY GREEN [address] [place] [address], [address], [facility] - [facility] 01/03/2025 11:26:43 5 Cerumen removal with microscope bilateral completed EMMIE MCKEON MD [address] [place] [address], [phone], [place] - [facility] 11/01/2024 09:47:06 4 Air & Speech Audio with Tymps - 77730, 73814 & 07043 completed MILO HENDRICKS, AUD [address] [facility],[place] [address], [place], [address], [place] - [facility] 09/15/2024 09:41:13 4 Comp Audio with Tymps - 49270 & 20695 completed JAIME TOBIN, AUD 100 [facility] [address], [place], [address], [place] - [facility] 03/15/2024 09:20:28 4 Cerumen removal with microscope bilateral completed EMMIE MCKEON MD 100 [facility],[address], [address], [place] - [facility] 03/15/2024 10:24:32 Kidney Stone Removal completed Genny Draper [place] - [facility] 03/15/2024 09:43:01 Imaging Results Imaging Date Name Status LastModified by Organiz ation Details LastModified Time 03/16/2024 audiogram completed [email or web address] Information n ot available 03/16/2024 16:31:06 03/15/2024 [...] BARCODE Information no t available 09/15/2024 17:51:38 01/03/2025 audiogram completed BARCODE Information no t available 01/03/2025 13:33:23 01/04/2025 audiogram completed BARCODE Information no t available 01/04/2025 11:48:33 Procedure Notes None recorded. Medical Equipment None Reported. Allergies No known drug allergies Medications Name Sig Start Date Stop Date Status Note LastModified by Organization Details LastModified Time triamtere ne 37.5 mg-hydroc hlorothia zide 25 mg capsule Take 1 capsule by mouth once a day 11/18 completed Medicati on ID: [id number] B rand Name: triamter kristin-hydr ochlorot hiazid S end Method: E-Prescr ibed Sub s Allowed: subs OK Medic ationGen ericName : triamter kristin-hydr ochlorot hiazid Not Available Not Available Not Available nortripty line 10 mg capsule Take 2 capsules every day by oral route at dinner. active Not Available Not Available No t Available Vitals Date Recorded Body height Body weight Provider Name and Address Organization Details Last Updated DateTime 01/03/2025 177.8 cm 18998.44 g Genny Draper [place] - [facility] 01/03/2025 11:12:04 Date Recorded Body height Body mass index (BMI) Body weight Provider Name and Address Organization Details Last Updated DateTime 03/15/2024 177.8 cm 29.4 kg/m2 90745.44 g Genny Draper [place] - [facility] 03/15/2024 09:42:31 Date Recorded Body height Body mass index (BMI) Body weight Provider Name and Address Organization Details Last Updated DateTime 09/15/2024 177.8 cm 29.4 kg/m2 11360.44 g Brynn Johnson [place] - [facility] 09/15/2024 09:47:17 Date Recorded Body height Body mass index (BMI) Body weight Provider Name and Address Organization Details Last Updated DateTime 11/01/2024 177.8 cm 29.4 kg/m2 52815.44 g Gracie Duranos [place] - [facility] 11/01/2024 09:28:36 Social History None recorded. Functional Status None recorded. Mental Status None recorded. Family History Nothing Reported. Medical History Condition Response Allergies/Hayfever N Heart Problems N Anxiety Y Tonsil Infections N Emphysema N Migraines Y Thyroid Problems N Glaucoma N Depression Y COPD N Developmental Delay N Nasal or Sinus Problems N Anemia N Immune System Disorder N Anesthesia Complications N Heart Attack (NM) N Other Skin Condition Y Diabetes N Rhinitis N Bleeding Disorder N Food Allergy N Arthritis Y Hearing Loss Y Hyperlipidemia N Cancer N Stroke N Dementia N Nasal polyps N Asthma N Sleep Disorder N GERD/Reflux N High Cholesterol Y Liver Disease N Headaches Y Fibromyalgia N Hypertension N Speech Delay N Kidney Disease N Past Encounters Encounter ID Performer Location Encounter Start Date Encounter Closed Date Diagnosis/Indication Diagnosis SNOMED-CT Code Diagnosis ICD10 Code Diagnosis Note [id number] EMMIE MCKEON MD [facility] [address] [address] 03/15/2024 09:07:21 03/15/2024 10:34:34 M? ? ?ni? ? ?re's disease 08166135 H81.02 Refractory migraine 4238 69302 G43.819 Vertigo of central origin 16913649 H81.4 Sensorineu ral hearing loss of bilateral ears 062154374 H90.3 Right Ear:Modera te sloping to a profound SNHL with fair speech discrimina tion.Type A tympanogra m.Left Ear:Modera tely-sever e sloping to a severe SNHL with good speech discrimina tion.Type A tympanogra m. Bilateral tinnitus 30465 41755 102 H93.13 Impacted c erumen of bilateral ears 2712004400 339959 H61.23 [id number] EMMIE MCKEON MD [facility] [address] [address] 09/15/2024 08:53:08 09/15/2024 10:18:47 M? ? ?ni? ? ?re's disease 58460225 H81.02 Refractory migraine 4238 81846 G43.819 Vertigo of central origin 03444159 H81.4 Bilateral tinnitus 17539 69340 102 H93.13 Sensorineu ral hearing loss of bilateral ears 012604022 H90.3 Audiologic al evaluation results: Right ear: [...] Cou ld not maintain a hermetic seal}} [id number] EMMIE MCKEON MD [facility] [address] [address] 11/01/2024 08:44:57 11/01/2024 09:45:44 Sensorineural hearing loss of bilateral ears 403848134 H90.3 Patient will continue with full-time use of binaural amplificat ion. M? ? ?ni? ? ?re's disease 75795706 H81.02 Refractory migraine 4238 21509 G43.819 Vertigo of central origin 42924451 H81.4 Impacted c erumen of bilateral ears 9280048299 566742 H61.23 Cerumen disimpacte d bilaterall y. Recommende d use of warm water irrigation s to prevent impactions due to hearing aid use. Recommende d against use of Q-tips [id number] EMMIE MCKEON MD [facility] [address] [place] [address] 01/03/2025 10:58:01 01/03/2025 11:56:05 Sensorineural hearing loss of bilateral ears 305742905 H90.3 Patient will continue with full-time use of binaural amplificat ion. Audiologic al evaluation results:Ri ght ear:{{Norm al sloping Mi ld* Modera te Moderat ganesh-severe Severe Pr ofound Nor mal auditory thresholds }} to {{mild mod erate mode rately-sev ere severe profound* with}} {{sensorin eural hearing loss with* cond uctive hearing loss with mixed hearing loss with}} {{excellen t good tania r* poor no t measurable }} word recognitio n.Left ear:{{Norm al sloping Mi ld Moderat e* Moderat ganesh-severe Severe Pr ofound Nor mal auditory thresholds }} {{sensorin eural hearing loss with* cond uctive hearing loss with mixed hearing loss with}} {{excellen t good tania r* poor no t measurable }} word recognitio n.Tympanom etry:Right Ear:{{Type A* Type As Type Ad Type C Type C, shallow & rounded Ty pe B Type B with large volume Cou ld not maintain a hermetic seal}}Left Ear:{{Type A* Type As Type Ad Type C Type C, shallow & rounded Ty pe B Type B with large volume Cou ld not maintain a hermetic seal}} M? ? ?ni? ? ?re's disease 54996263 H81.02 Refractory migraine 4238 65495 G43.819 Vertigo of central origin 73846548 H81.4 Health Concerns Section Related Observation LastModified by Organization Detai ls LastModified Time None Recorded Concern Status LastModified by Organization Details LastModified Time None Recorded Advance Directives Directive None Recorded Payers Encounter Date Sequence Insurance Name Policy Number Policy Santos Covered Member ID Santos Member ID Guarantor Name 03/15/2024 1 [facility] PLAN (MEDICAID HMO) STEFANIE Meeks Deluna [id number] Jens Deluna 09/15/2024 1 [facility] PLAN (MEDICAID HMO) [place] Jens Deluna [id number] Jens Deluna 11/01/2024 1 [facility] PLAN (MEDICAID HMO) [place] Jens Deluna [id number] Jens Deluna 01/03/2025 1 [facility] (MEDICARE REPLACEMENT/ ADVANTAGE - PPO) [id number] Jens Constantino Deluna [id number] Jens Mikie Notes Date Note Type Note Provider Name [...] turmeric supplementation. Using binaural amplification dispensed at [facility] audiology. Patient comes back for reevaluation [...] fluctuating hearing loss day-to-day EMMIE MCKEON MD [address] [place] [address], [place], [address], [facility] - [facility] 03/15/2024 10:31:37 09/15/2024 text/html 63-year-old male with likely combination of vestibular migraine and left-sided M? ? ?ni? ? ?re's disease who turns today for reevaluation. Could not tolerate triamterene/hydrochl orothiazide due to lightheadedness. Patient had significant improvement with symptoms following migraine diet as well as magnesium and vitamin B2 and turmeric supplementation. Using binaural amplification dispensed at [facility] audiology. Patient comes back for reevaluation [...] and loud noise exposure. EMMIE MCKEON MD [address] [place] [address], [phone], [facility] - [facility] 09/15/2024 10:16:01 11/01/2024 text/html Patient with lik [...] sensation in both ears. EMMIE MCKEON MD 100 [facility],[address], [address], [facility] - [facility] 11/01/2024 09:47:45 01/03/2025 text/html Patient with lik ganesh combination of [...] started at the end of August 2024. Last seen about 2 months ago at which point we increased the dosage to 20 mg at bedtime. Patient noticing a little more difficulty urinating. He does have an appointment coming up with his urologist. Patient returns today for reevaluation of symptoms and updated audiometric testing. Patient reports no balance issues since his last visit. Patient also notes that the hearing in the right ear seems better than it was last time.Currently using binaural amplification manage at [facility] audiology EMMIE MCKEON MD [address] [place] [address],[address], [address], [facility] - [facility] 01/03/2025 11:57:52
== END 2025-01-19 14:35 | disposition home or self-care (01) ==
LOC: HO.HUSH 13:49
PROVIDERS: PCP Nurse Practitioner Family; Visit Provider Nurse Practitioner Family
DX: Z13.9 Encounter for screening, unspecified (principal)

== ENCOUNTER → 2025-01-19 13:49 | Outpatient (BNVA) | payer OTHER, SELFPAY | PROVIDERS: PCP Nurse Practitioner Family; Visit Provider Nurse Practitioner Family | DX: N28.1 Cyst of kidney, acquired (principal); N40.1 Benign prostatic hyperplasia with lower urinary tract symptoms; R35.1 Nocturia | CPT/HCPCS: 81003 ==

== ENCOUNTER 2025-01-26 14:11 | Outpatient (REF) | payer SELFPAY ==
--- OUTSIDE RECORDS SUMMARY | 2025-01-26 15:02 | XMS_ITS | Clinical Summary ---
Author Organization [facility] Address [address] [place] [address] Care Team Providers Care Conduit Bender Name Role Phone Sb Muñiz Primary Care Provider [phone] Allergies No known active allergies Medications * [...] complete this topic Zoster (Zostavax) Discontinued Insurance [facility] FEE FOR SERVICE HMO * Guarantor: [employer] Account Type Relation to Patient Date of Phone Billing Address [employer] PAYABLE [address] [place] [address] Care Teams Conduit Bender Relationship Specialty Start Date End Date Sb Muñiz [facility] [address] [place] [address] PCP - General Internal Medicine 12/02/11
--- OUTSIDE RECORDS SUMMARY | 2025-01-26 15:02 | XMS_ITS | Data Portability ---
Author Organization [place] - [facility] Former[facility], Allergy Address [address] [address] Care Team Providers Care Hot Roll Inspector Name Role Phone MIRACLE WAY Primary Care [...] his audiogram to take back to his heavy duty custodian at [facility] audiology to ensure that his hearing [...] in 6 months with hearing test first [email or web address] Not available 03/15/2024 10:30:18 09/15/2024 09/15/2024 Patient [...] able to stabilize the underlying neurological phenomenon. [email or web address] Not available 09/15/2024 10:15:42 11/01/2024 11/01/2024 Patient [...] 2 months for reevaluation and audiometric testing. [email or web address] Not available 11/01/2024 09:46:07 01/03/2025 01/03/2025 Patient [...] his audiogram to bring back to his heavy duty custodian at [facility] audiology to ensure that his hearing aids are adjusted to match his current level of hearing loss. He will continue on nortriptyline, as well as the vitamin B2, magnesium, and identification and illumination of migraine triggers. Follow-up in 6 months for reevaluation of hearing and symptom results. [email or web address] Not available 01/03/2025 11:57:01 Plan of Treatment Reminders Order Date Submit Date Provider Last Modified By Organization Details Last Modified Time Details Appointments Hearing Test 2024 10:30A M Hearing Test Not available Not available Not available Establish ed 10 2024 11:20A M EMMIE MCKEON MD Not available Not available Not available Lab None recorded. Referral None recorded. Procedures None recorded. Surgeries None recorded. Imaging None recorded. Medication Orders nortripty line 10 mg capsule [address] [facility], [address] [facility], [place], [address], 11/01/2024 09:42:34 nortripty line 10 mg capsule [address] [facility], [address] [facility], [place], [address], 09/15/2024 10:10:22 Patient TargetsNo targets recorded. Patient InstructionsNo instructions recorded. Reason for Referral None Reported. Results Created Date Observation Date Name Description Value Unit Range Abnormal Flag Note LastModifiedBy Organization Detail LastModifiedTime 03/16/20 audio gram No observ ation record ed. [email or web address] Not Available 02/20 16:31:06 05/12/20 24 03/15/2024 [...] eural hearing loss of bilatera l ears 479255955 Active 2021 Sensorin eural hearing loss, bilatera l; Note: Date Diagnose d: 2 10:46 AM (H90.3) Not Available [facility] 4 02:20:52 Benign paroxysm al position al vertigo 133879847 Completed 202104/22/2024 Benign paroxysm al vertigo, unspecif ied ear; Note: Date Diagnose d: 2 10:49 AM (H81.10) Not Available [facility] 4 02:20:50 Vertigo of central origin 79068475 Active 2022 Vertigo of central origin; Note: Date Diagnose d: 3 11:35 AM (H81.4) Not Available [facility] 4 02:20:09 Disorder of nasal sinus 5357251 Active 2021 Perforat ion of nasal septum NOS; Note: Date Diagnose d: 2 10:46 AM (J34.89) Not Available [facility] 4 02:20:07 Disorder of the nose 36639720 Active 2021 Perforat ion of nasal septum NOS; Note: Date Diagnose d: 2 10:46 AM (J34.89) Not Available [facility] 4 02:20:07 Refracto ry migraine 448470853 Active 2022 Other migraine , intracta ble, without status migraino sumit; Note: Date Diagnose d: 3 11:35 AM (G43.819 ) Not Available [facility] 4 02:20:36 Bilatera l tinnitus 62229716067 02 Active 2021 Tinnitus , bilatera l; Note: Date Diagnose d: 2 10:46 AM (H93.13) Not Available [facility] 4 02:20:16 M? ? ?ni? ? ?re's disease 39292784 Active 2022 Meniere' s disease, left ear; Note: Date Diagnose d: 07/16/20 23 8:57 AM (H81.02) Not Available [facility] 4 02:19:58 Impacted cerumen of bilatera l ears 16853138015 11195 Active 2023 EMMIE MCKEON MD [address] [place] [address], [place], [address] , [facility] 4 10:31:01 Problem Notes None recorded. Procedures Surgical History Date Name Laterality Status Provider Name and Address Organization Details Recorded Time 5 Comp Audio with Tymps - 45697 & 18798 completed EMILY GREEN [address] [place] [address], [address], [facility] - [facility] 01/03/2025 11:26:43 5 Cerumen removal with microscope bilateral completed EMMIE MCKEON MD [address] [place] [address], [address], [place] - [facility] 11/01/2024 09:47:06 4 Air & Speech Audio with Tymps - 52471, 53686 & 00998 completed MILO HENDRICKS, AUD [address] [facility],[place] [address], [place], [address], [place] - [facility] 09/15/2024 09:41:13 4 Comp Audio with Tymps - 33698 & 70840 completed JAIME TOBIN, AUD [address] [facility] 100, [place], [address], [place] - [facility] 03/15/2024 09:20:28 4 Cerumen removal with microscope bilateral completed EMMIE MCKEON MD 100 [facility],[address], [address], [place] - [facility] 03/15/2024 10:24:32 Kidney Stone Removal completed Genny Draper [place] - [facility] 03/15/2024 09:43:01 Imaging Results Imaging Date Name Status LastModified by Organiz ation Details LastModified Time 03/16/2024 audiogram completed [email or web address] Information n ot available 03/16/2024 16:31:06 03/15/2024 [...] a day 11/18 completed Medicati on ID: [id number] B rand Name: triamter kristin-hydr ochlorot hiazid [...] Details Last Updated DateTime 01/03/2025 177.8 cm 98892.44 g Genny Draper [place] - [facility] 01/03/2025 11:12:04 Date Recorded Body height Body mass index (BMI) Body weight Provider Name and Address Organization Details Last Updated DateTime 03/15/2024 177.8 cm 29.4 kg/m2 67467.44 g Genny Draper [place] - [facility] 03/15/2024 09:42:31 Date Recorded Body height Body mass index (BMI) Body weight Provider Name and Address Organization Details Last Updated DateTime 09/15/2024 177.8 cm 29.4 kg/m2 44388.44 g Brynn Johnson [place] - [facility] 09/15/2024 09:47:17 Date Recorded Body height Body mass index (BMI) Body weight Provider Name and Address Organization Details Last Updated DateTime 11/01/2024 177.8 cm 29.4 kg/m2 30848.44 g Gracie Duranos [place] - [facility] 11/01/2024 09:28:36 Social History None recorded. [...] Disorder N Anesthesia Complications N Heart Attack (MS) N Other Skin Condition Y Diabetes N [...] Note [id number] EMMIE MCKEON MD [facility] [address] [address] 03/15/2024 09:07:21 03/15/2024 10:34:34 M? ? ?ni? ? ?re's disease 27964206 H81.02 Refractory migraine 4238 62203 G43.819 Vertigo of central origin 65307118 H81.4 Sensorineu ral hearing loss of bilateral ears 810558456 H90.3 Right Ear:Modera te sloping to a profound SNHL with fair speech discrimina tion.Type A tympanogra m.Left Ear:Modera tely-sever e sloping to a severe SNHL with good speech discrimina tion.Type A tympanogra m. Bilateral tinnitus 20233 16263 102 H93.13 Impacted c erumen of bilateral ears 9406083511 455037 H61.23 [id number] EMIME MCKEON MD [facility] [address] [address] 09/15/2024 08:53:08 09/15/2024 10:18:47 M? ? ?ni? ? ?re's disease 40734109 H81.02 Refractory migraine 4238 97749 G43.819 Vertigo of central origin 60935579 H81.4 Bilateral tinnitus 74255 74869 102 H93.13 Sensorineu ral hearing loss of bilateral ears 612677608 H90.3 Audiologic al evaluation results: Right ear: [...] Cou ld not maintain a hermetic seal}} [id number] EMMIE MCKEON MD [facility] [address] [address] 11/01/2024 08:44:57 11/01/2024 09:45:44 Sensorineural hearing loss of bilateral ears 387994010 H90.3 Patient will continue with full-time use of binaural amplificat ion. M? ? ?ni? ? ?re's disease 37832186 H81.02 Refractory migraine 4238 62942 G43.819 Vertigo of central origin 49911410 H81.4 Impacted c erumen of bilateral ears 6479555223 451796 H61.23 Cerumen disimpacte d bilaterall y. Recommende d use of warm water irrigation s to prevent impactions due to hearing aid use. Recommende d against use of Q-tips [id number] EMMIE MCKEON MD [facility] [address] [place] [address] 01/03/2025 10:58:01 01/03/2025 11:56:05 Sensorineural hearing loss of bilateral ears 640483591 H90.3 Patient will continue with full-time use [...] seal}} M? ? ?ni? ? ?re's disease 66852863 H81.02 Refractory migraine 4238 60285 G43.819 Vertigo of central origin 92005916 H81.4 Health Concerns Section Related Observation LastModified by Organization Detai ls LastModified Time None Recorded Concern Status LastModified by Organization Details LastModified Time None Recorded Advance Directives Directive None Recorded Payers Insurance Date Sequence Insurance Name Policy Number Policy Santos Covered Member ID Santos Member ID Guarantor Name 01/03/2025 1 [facility] (MEDICARE REPLACEMENT/A DVANTAGE - PPO) [id number] Oliverio Killianira [id number] Oliverio Meeks Deluna 01/03/2025 1 [place]: [employer] Oliverio Deluna [id number] Oliverio Meeks Mikie 01/03/2025 1 [facility] HEALTH NET PLAN (MEDICAID HMO) [place] Oliverio Meeks Deluna [id number] Oliverio Meeks Mikie Notes Date Note Type Note Provider [...] turmeric supplementation. Using binaural amplification dispensed at [facility] audiology. Patient comes back for reevaluation [...] fluctuating hearing loss day-to-day EMMIE MCKEON MD [address] [place] [address], [place], [address], [facility] - [facility] 03/15/2024 10:31:37 09/15/2024 text/html 63-year-old male with likely combination of vestibular migraine and left-sided M? ? ?ni? ? ?re's disease who turns today for reevaluation. Could not tolerate triamterene/hydrochl orothiazide due to lightheadedness. Patient had significant improvement with symptoms following migraine diet as well as magnesium and vitamin B2 and turmeric supplementation. Using binaural amplification dispensed at [facility] audiology. Patient comes back for reevaluation [...] and loud noise exposure. EMMIE MCKEON MD [address] [place] [address], [address], [facility] 09/15/2024 10:16:01 11/01/2024 text/html Patient with [...] have fullness sensation in both ears. EMMIE MIKE, MD 100 [facility] 100, [place], [address], [facility] - [facility] 11/01/2024 09:47:45 01/03/2025 text/html Patient with lik [...] last time.Currently using binaural amplification manage at [facility] audiology EMMIE MCKEON MD 100 [facility] 100, [place], [address], [place] [facility] 01/03/2025 11:57:52
== END 2025-01-26 14:12 | disposition home or self-care (01) ==
LOC: HO.HAP 14:11
PROVIDERS: Visit Provider Nurse Practitioner Family
DX: Z46.1 Encounter for fitting and adjustment of hearing aid (principal); H90.3 Sensorineural hearing loss, bilateral
CPT/HCPCS: V5267; V5299

== ENCOUNTER 2025-04-27 15:00 | Outpatient (REF) | payer SELFPAY ==
--- OUTSIDE RECORDS SUMMARY | 2025-04-27 15:02 | XMS_ITS | Clinical Summary ---
Author Organization [facility] Address [address] [facility] [address] [place] [address] Phone Care Team Providers Care Extended Insurance Clerk Name Role Phone Ron Owens NP Primary Care Provider + Allergies No known active allergies Medications triamterene-hyd roCHLOROthiazid e (DYAZIDE) 37.5-25 mg per capsule Take 1 capsule by mouth every morning. 01/19/2023 Active rosuvastatin (CRESTOR) 5 MG tablet Take 1 tablet by mouth every morning. 04/10/2023 Active Family History Medical History Relation Comments Hearing loss Mother Vertigo Paternal Uncle Relation Status Comments Mother Paternal Uncle Social History Tobacco Use Types Packs/Day Years Used Date Smoking Tobacco: Never Smokeless Tobacco: Never Tobacco Cessation:Counseling Given: Not Answered Alcohol Use Standard Drinks/Week Comments Not Currently 0 (1 standard drink = 0.6 oz pur e alcohol) Education Answer Date Recorded Are you interested in more education? Not on bob e 01/16/2023 Are you concerned about learning? Not on file 01/16/2023 No 01/16/2023 No 01/16/2023 Digital Access Answer Date Recorded No 02/11/2023 No 02/11/2023 Reliable internet access at home? Not on file 02/11/2023 Device with a working camera? Not on file Sex and Gender Information Value Date Recorded Sex Assigned at Not on file Legal Sex Male 11:12 AM EDT Gender Identity Not on file Sexual Orientation Not on file Last Filed Vital Signs Vital Sign Reading Time Taken Comments Blood Pressure - - Pulse - - Temperature - - Respiratory Rate - - Oxygen Saturation - - Inhaled Oxygen Concentration - - Weight 93.9 kg (207 lb) 04/22/2023 8:50 AM EDT Height 176.5 cm (5' 9.5 ) 04/22/2023 8:50 AM EDT Body Mass Index 30.13 04/22/2023 8:50 AM EDT Plan of Treatment Health Maintenance Due Date Last Done Comments Adult Td,Tdap Booster 1959 LIPID PANEL 1959 POTASSIUM LEVEL 1959 DEPRESSION SCREENING 1971 HEPATITIS C SCREENING 12/18/1977 HIV ONE-TIME SCREENING (18-6 5 YEARS) 12/18/1977 SMOKING STATUS SCREENING (On ce After 26 Yrs) 12/18/1985 SCREENING FOR DIABETES 12/18/1994 COLOGUARD 12/18/2004 COLONOSCOPY 12/18/2004 COLORECTAL CANCER SCREENING 12/18/2004 FIT TEST 12/18/2004 FOBT 12/18/2004 SIGMOIDOSCOPY 12/18/2004 VIRTUAL COLONOSCOPY 12/18/2004 PNEUMOCOCCAL VACCINES (50+ y ears) (1 of 1 - PCV) 12/18/2009 ZOSTER VACCINES (1 of 2) 12/18/2009 COVID-19 VACCINE (1 - 2023-2 5 season) 2024 RSV VACCINE (1 - 1-dose 75+ series) 12/18/2034 HEPATITIS A VACCINES Aged Out No long er eligible based on patient's age to complete this topic HIB VACCINES Aged Out No longer eligi ble based on patient's age to complete this topic MENINGOCOCCAL VACCINES (ACWY) Aged Out No longer eligible based on patient's age to complete this topic MENINGOCOCCAL VACCINES (B) Aged Out N o longer eligible based on patient's age to complete this topic Medical Devices Not on file Insurance [facility] [employer] PLANS DIRECT [id number] [place] [address] PLANS DIRECT [facility] PLANS DIRECT [phone] [place] [address] PLANS DIRECT [facility] DIRECT [facility] DIRECT Care Teams Extended Insurance Clerk Relationship Specialty Start Date End Date Ron Owens NP [address] [place] [address] [place] [address] [email or web address] PCP - General Nurse Practitioner 04/22/23 Additional Source Comments The information contained in this document represents components of the legal health record. It is not the complete legal health record.[facility]
--- OUTSIDE RECORDS SUMMARY | 2025-04-27 15:02 | XMS_ITS | Clinical Summary ---
Author Organization [facility] Address [address] [place] [address] Care Team Providers Care Escrow Representative Name Role Phone Sb Muñiz Primary Care Provider [phone] Allergies No known active allergies Medications * [...] - 2023-2 5 season) 2024 Influenza (#1) 2025 RSV (1 - 1-dose 75+ series) 12/18/2034 Abdominal Aorta Imaging Discontinued HPV Vaccine (No Doses Required) Completed Hep A Aged Out No longer eligi [...] complete this topic Zoster (Zostavax) Discontinued Insurance BCBS FEE FOR SERVICE HMO * Guarantor: [employer] Account Type Relation to Patient Date of Phone Billing Address [employer]ou Lashawn ACCOUNTS PAYABLE [address] [place] [address] Care Teams Escrow Representative Relationship Specialty Start Date End Date Sb Muñiz [address] [address] PCP - General Internal Medicine 12/02/11
--- NOTE | 2025-04-28 08:26 | MHC.AU.HA3 ---
Hearing Instrument Follow-Up- Binaural Date of Visit: 04/28/25 Right Ear: Juan, Model, Color, Serial Number: Shiv Arroyo [id number]-[id number] SN: [id number] Color: Sandalwood Inspector [employer] Repair Warranty: 11/19/2026 Inspector Agricultural Commodities Loss and Damage Warranty: Used [facility] Service Plan: 09/03/2024 Battery Size: Rechargeable Payroll Accounting Manager/Slim Tube: 2M Earmold/Dome/CShell/SlimTip:Medium closed dome (no retention tail) Type of Wax Guard: CeruStop Dispensed By: [facility] Date of Fittin09/03/2023 Left Ear: Juan, Model, Color, Serial Number: Shiv Arroyo [id number] SN: [id number] Color: Sandalwood Inspector [employer] Repair Warranty: 11/19/2026 Inspector [employer] Loss and Damage Warranty: 11/19/2026 [facility] Service Plan: 11/02/2024 Battery Size: Rechargeable Payroll Accounting Manager/Slim Tube: 2P Earmold/Dome/CShell/SlimTip: Small power dome (no retention tail) Type of Wax Guard: CeruStop Dispensed By: [facility] Date of Fittin09/03/2023 Follow-Up Summary: Left aid dropped off c/o . Found wax built up on dome. Cleaned aid, replaced dome, replaced wax guard. Listening check positive. Recommendations: Recommendations: Hearing instrument follow-up or maintenance as needed. Diagnosis Code(s): Primary Diagnosis: H90.3 Bilateral Sensorineural Hearing Loss Signature: Provider: Samia Gould, [facility]
== END 2025-04-27 15:01 | disposition home or self-care (01) ==
LOC: HO.HAP 15:00
PROVIDERS: Visit Provider Nurse Practitioner Family
DX: Z13.89 Encounter for screening for other disorder (principal)

== ENCOUNTER 2025-04-28 15:53 | Outpatient (REF) | payer SELFPAY ==
--- OUTSIDE RECORDS SUMMARY | 2025-04-28 15:56 | XMS_ITS | Clinical Summary ---
Author Organization [facility] Address [address] [facility] [address] [place] [address] Phone Care Team Providers Care Office Equipment Mechanic Name Role Phone Ron Owens NP Primary [...] topic Medical Devices Not on file Insurance [facility] [employer] PLANS DIRECT [id number] [place] [address] PLANS DIRECT [facility] PLANS DIRECT [id number] [place] [address] PLANS DIRECT [facility] DIRECT [facility] DIRECT Care Teams Office Equipment Mechanic Relationship Specialty Start Date End Date Ron Owens NP [address] [place] [address] [place] [address] [email or web address] PCP - General Nurse Practitioner 04/22/23 Additional Source Comments The information contained in this document represents components of the legal health record. It is not the complete legal health record.[facility]
--- OUTSIDE RECORDS SUMMARY | 2025-04-28 15:56 | XMS_ITS | Clinical Summary ---
Author Organization [facility] Address [address] [place] [address] Care Team Providers Care Oracle Business Analyst Name Role Phone Sb Muñiz Primary Care Provider [phone] Allergies No known active allergies Medications * [...] BCBS FEE FOR SERVICE HMO * Guarantor: [employer] Account Type Relation to Patient Date of Phone Billing Address [employer] Lash[employer] ACCOUNTS PAYABLE [address] [place] [address] Care Teams Oracle Business Analyst Relationship Specialty Start Date End Date Sb Muñiz [address] [address] PCP - General Internal Medicine 12/02/11
== END 2025-04-28 15:54 | disposition home or self-care (01) ==
LOC: HO.SH 15:53
PROVIDERS: Visit Provider Nurse Practitioner Family
DX: Z01.118 Encounter for examination of ears and hearing with other abnormal findings (principal); H90.3 Sensorineural hearing loss, bilateral
CPT/HCPCS: 92593

== ENCOUNTER 2025-05-08 09:16 | Outpatient (REF) | payer OTHER, SELFPAY ==
[2025-05-08 11:00] LABS: INTERNATIONAL NORM RATIO 1.0 (0.9-1.1); Prothrombin Time 11.3 SEC (10.9-12.4)
[2025-05-08 11:44] LABS: Alanine Aminotransferase 56 U/L (0-40); Albumin Level 4.7 g/dL (3.5-5.0); Alkaline Phosphatase 71 U/L (39-117); Aspartate Amino Transferase 34 U/L (5-37); Iron 125 mcg/dL (45-160); Percent Iron Saturation 47 % (15-50); Total Iron Binding Capacity 266 mcg/dL (228-428); Total Protein 6.9 g/dL (6.5-8.0); Unsaturated Iron Binding 141 ug/dL
[2025-05-08 12:03] LABS: Ferritin 266 ng/mL (20-250)
[2025-05-08 12:10] LABS: Hemoglobin A1C 142.3679 umol/L; Total Hemoglobin (HGBA1C) 4305.8445 umol/L
[2025-05-09 09:38] LABS: Immunoglobulin A 55 mg/dL (70-320)
[2025-05-11 22:57] LABS: Liver Kidney Microsomal Ab <=20.0 U (<=20.0)
[2025-05-12 08:14] LABS: Phosphatidylethanol 16:0-18:1 NEGATIVE; Phosphatidylethanol 16:0-18:2 NEGATIVE
== END 2025-05-08 09:17 | disposition home or self-care (01) ==
LOC: HO.LAB 09:16
PROVIDERS: PCP Nurse Practitioner Family; Visit Provider Internal Medicine
DX: R79.89 Other specified abnormal findings of blood chemistry (principal); R74.8 Abnormal levels of other serum enzymes; Z51.81 Encounter for therapeutic drug level monitoring
CPT/HCPCS: 36415; 80076; 80321; 82103; 82105; 82390; 82728; 82784; 83036; 83540; 85610; 86015; 86364; 86376; 86381

== ENCOUNTER 2025-05-08 09:16 | Outpatient (AMB) | payer OTHER, SELFPAY ==
[2025-05-08 09:21] VITALS: BP 156/110; PULSE 69; BMI 31.1
--- NOTE | 2025-05-08 09:21 | A.OFFVIS_ITS ---
Vital Signs 05/08/25 09:21 Height 5 ft 9.5 in Weight 213 lb 13.574 oz BMI 31.1 BP 156/110 H Blood Pressure Location Rt brachial Position Sitting Pulse 69 Intake Visit Reasons: liver disease/Poppy pt Intake Note: Patient in office today for liver disease. CC: Patient states that everything is normal and denies having any GI symptoims. Hand Tool Lapper Required: No Accompanied by: Self / Same As Patient Allergies No Known Allergies Allergy (Verified 05/08/25 09:29) HPI Comments Details: 64 y.o M with pmh of HLD, menieres who is here to [facility]. Pt prev seen by [facility]. Reports no abd pain, N,V, D. Has some vertiginous sx from meniere's but no liver related sx. LFTs have fluctuated from x2-3 UNL over years. Imaging reviewed mild steatosis. Also with R lateral lobe lesion measuring 0.6 cm ? adenoma vs FNH vs hemangioma. PFSH Medical History Internal hemorrhoids Vertigo Hearing loss Surgical History Status post colonoscopy Social History Housing: House Patient Tobacco Use Status: Never used Tobacco e-Cigarette/Vaping Use: Never Used Second Hand Smoke Exposure: No Current occupational status: employed Current occupation: [employer] Cognitive needs: No Hearing needs: No Vision needs: No Review of Systems Const All systems reviewed & are unremarkable except as noted in HPI and below Physical Exam Exam Exam: No apparent distress Nonicteric Abdomen soft, nondistended Alert and oriented x3, normal gait Vital Signs: Last Vital Signs Pulse 69 05/08/25 09:21 BP 156/110 H 05/08/25 09:21 BMI result Body Mass Index 31.1 Assessment & Plan Assessment & Plan (1) Elevated LFTs: Code(s): R79.89 - Other specified abnormal findings of blood chemistry Plan Likely 2/2 steatosis however other causes such as AIH, iron overload, copper, etc not exlcuded. Will order w/up. Will also need an MRI preferentially with Eovist to r/o FNH vs adenoma. Plan: - Labs as below - MRI abd with and without contrast - Lifestyle changes reviewed. CRC screening not due till 2030. Follow up 6 months Orders: Orders Alpha Fetoprotein Today R79.89 - Other specified abnormal findings of blood chemistry Ceruloplasmin Today R79.89 - Other specified abnormal findings of blood chemistry Ferritin Today R79.89 - Other specified abnormal findings of blood chemistry IRON PROFILE Today R79.89 - Other specified abnormal findings of blood chemistry Liver Kidney Microsomal Ab Today R79.89 - Other specified abnormal findings of blood chemistry Phosphatidylethanol, Blood Today R79.89 - Other specified abnormal findings of blood chemistry Prothrombin Time INR Today R79.89 - Other specified abnormal findings of blood chemistry Mitochondrial Antibody Today R79.89 - Other specified abnormal findings of blood chemistry Liver Panel Today R74.8 - Abnormal levels of other serum enzymes Alpha 1 Anti-trypsin Today R79.89 - Other specified abnormal findings of blood chemistry Hemoglobin A1c Today R79.89 - Other specified abnormal findings of blood chemistry Smooth Muscle Antibody Today R79.89 - Other specified abnormal findings of blood chemistry Transglutaminase IgA Today R79.89 - Other specified abnormal findings of blood chemistry Immunoglobulin A Today R79.89 - Other specified abnormal findings of blood chemistry MR abdomen wo/w con Today R74.8 - Abnormal levels of other serum enzymes Coding Level of Care Code Est Pt Level 4 (94652) Complex EM visit Add On G2211 Diagnoses Elevated LFTs R79.89
--- OUTSIDE RECORDS SUMMARY | 2025-05-08 09:44 | XMS_ITS | Clinical Summary ---
Author Organization [facility] Address [address] [facility] [address] [place] [address] Phone Care Team Providers Care River Tester Name Role Phone Ron Owens NP Primary [...] topic Medical Devices Not on file Insurance [facility] [employer] PLANS DIRECT [facility] PLANS DIRECT [facility] PLANS DIRECT [facility] PLANS DIRECT [facility] DIRECT [facility] DIRECT Care Teams River Tester Relationship Specialty Start Date End Date Ron Owens NP [address] [facility] [place] [address] PCP - General Nurse Practitioner 04/22/23 Additional Source Comments The information contained in this document represents components of the legal health record. It is not the complete legal health record.[facility]
--- OUTSIDE RECORDS SUMMARY | 2025-05-08 09:44 | XMS_ITS | Clinical Summary ---
Author Organization [facility] Address [address] [place] [address] Care Team Providers Care Critical Care Nurse Specialist Name Role Phone Sb Muñiz Primary Care Provider [phone] Allergies No known active allergies Medications * [...] BCBS FEE FOR SERVICE HMO * Guarantor: [employer] Account Type Relation to Patient Date of Phone Billing Address [employer] Lashawn ACCOUNTS PAYABLE [address] [place] [phone] Care Teams Critical Care Nurse Specialist Relationship Specialty Start Date End Date Sb Muñiz [address] [address] PCP - General Internal Medicine 12/02/11
== END 2025-05-08 09:44 | disposition home or self-care (01) ==
PROVIDERS: PCP Nurse Practitioner Family; Visit Provider Internal Medicine
DX: R79.89 Other specified abnormal findings of blood chemistry (principal)
CPT/HCPCS: 99214; G2211

== ENCOUNTER 2025-05-09 10:51 | Outpatient (REF) | payer SELFPAY ==
--- OUTSIDE RECORDS SUMMARY | 2025-05-09 12:23 | XMS_ITS | Clinical Summary ---
Author Organization [facility] Address [address] [place] [address] Care Team Providers Care Director Of Acquisitions Name Role Phone Sb Muñiz Primary Care Provider [phone] Allergies No known active allergies Medications * [...] BCBS FEE FOR SERVICE HMO * Guarantor: [employer] Account Type Relation to Patient Date of Phone Billing Address [employer] Lashawn ACCOUNTS PAYABLE [address] [place] [address] Care Teams Director Of Acquisitions Relationship Specialty Start Date End Date Sb Muñiz [address] [address] PCP - General Internal Medicine 12/02/11
--- OUTSIDE RECORDS SUMMARY | 2025-05-09 12:23 | XMS_ITS | Clinical Summary ---
Author Organization [facility] Address [address] [facility] [address] [place] [address] Phone Care Team Providers Care Instrumentation Specialist Name Role Phone Ron Owens NP Primary [...] Not on file Insurance [facility] [employer] [employer] PLANS DIRECT [facility] PLANS DIRECT [facility] PLANS DIRECT [facility] PLANS DIRECT [facility] DIRECT [facility] DIRECT Care Teams Instrumentation Specialist Relationship Specialty Start Date End Date Ron Owens NP [address] [place] [address] PCP - General Nurse Practitioner 04/22/23 Additional Source Comments The information contained in this document represents components of the legal health record. It is not the complete legal health record.[facility]
== END 2025-05-09 10:52 | disposition home or self-care (01) ==
LOC: HO.HAP 10:51
PROVIDERS: Visit Provider Nurse Practitioner Family
DX: Z13.89 Encounter for screening for other disorder (principal)

== ENCOUNTER → 2025-06-06 10:11 | Outpatient (BNV) | payer OTHER, SELFPAY | PROVIDERS: Visit Provider Radiology Diagnostic Radiology | DX: K76.89 Other specified diseases of liver (principal) | CPT/HCPCS: 74183 ==

== ENCOUNTER 2025-06-06 10:14 | Outpatient (REF) | payer OTHER, SELFPAY ==
--- NOTE | ~2025-06-06 | MR_ITS ---
EXAMINATION: MR ABDOMEN WITHOUT THEN WITH IV CONTRAST HISTORY: R74.8 - Abnormal levels of other serum enzymes COMPARISON: Comparison is made with the prior examination dated 07/13/2023 as well as the prior study dated 07/30/2022. TECHNIQUE: Axial in and out of phase T1-weighted gradient echo, axial diffusion weighted, and axial and coronal HASTE T2 with fat saturation images were obtained through the abdomen. Subsequently, fat suppressed axial and coronal T1-weighted images were obtained after the intravenous administration of 9 mL Eovist. FINDINGS: Liver: There is heterogeneous loss of signal intensity in the liver on opposed phase imaging, consistent with steatosis. There is an 8 mm arterial phase enhancing lesion in segment V/VIII as seen previously. This measures similar in size to the most recent prior examination. Delayed images demonstrate persistent peripheral enhancement with slight central washout. No additional enhancing liver lesions are identified. Again seen are cysts in the left lobe measuring up to 1.3 cm.. The hepatic and portal veins are patent. There is no intrahepatic biliary dilatation. Gallbladder/biliary tree: No gallstones are identified. The common bile duct is normal in caliber. No intraluminal filling defects are identified to suggest choledocholithiasis. Spleen: The spleen is unremarkable. Pancreas: The pancreas is unremarkable. There is no enhancing pancreatic mass. The pancreatic duct is normal in caliber. Adrenals: The adrenal glands are unremarkable. Kidneys: There are bilateral renal cysts measuring up to 3.4 cm on the right and 3.4 cm on the left. There is no hydronephrosis. Lymph nodes: There is no retroperitoneal lymphadenopathy in the upper abdomen. Fluid: There is no ascites in the upper abdomen. Visualized bowel: The visualized small and large bowel loops are unremarkable in appearance. Visualized bones: The visualized bones demonstrate normal marrow signal intensity. MR/MR abdomen wo/w con IMPRESSION: 8 mm arterial enhancing lesion in segment V/VIII similar in size to the most recent prior study from 07/13/2023. The lesion is difficult to characterize due to its small size. Continued follow-up is recommended. Electronically signed by: Glen Johnson MD 06/06/2025 11:29 AM EDT
[2025-06-06] MEDS: Gadoxetate Disodium 10 ML VIAL IVPUSH (11:11)
--- OUTSIDE RECORDS SUMMARY | 2025-06-06 13:24 | XMS_ITS | Clinical Summary ---
Author Organization [facility] Address [address] [place] [address] Care Team Providers Care Steam Plant Operator Name Role Phone Sb Muñiz Primary Care Provider Allergies No known active allergies Medications * [...] COVID-19 Vaccine ( - 2023-2 5 season) 2025 Influenza (#1) 2025 RSV (1 - 1-dose [...] BCBS FEE FOR SERVICE HMO * Guarantor: [employer] Account Type Relation to Patient Date of Phone Billing Address [employer] Lashawn ACCOUNTS PAYABLE [address] [place] [phone] Care Teams Steam Plant Operator Relationship Specialty Start Date End Date Sb Muñiz [address] [address] PCP - General Internal Medicine 12/02/11
== END 2025-06-06 10:15 | disposition home or self-care (01) ==
LOC: HO.MRI 10:14
PROVIDERS: Visit Provider Internal Medicine
DX: R74.8 Abnormal levels of other serum enzymes (principal)
CPT/HCPCS: 74183; A9581

== ENCOUNTER 2025-07-17 07:20 | Outpatient (REF) | payer OTHER, SELFPAY ==
--- OUTSIDE RECORDS SUMMARY | 2025-07-17 07:23 | XMS_ITS | Clinical Summary ---
Author Organization [facility] Address [address] [place] [address] Care Team Providers Care Cured Meat Packing Supervisor Name Role Phone Sb Muñiz Primary Care Provider [phone] Allergies No known active allergies Medications * [...] of 2) 12/18/2009 COVID-19 Vaccine ( - 2024-2 6 season) 2025 Influenza (#1) 2025 RSV (1 [...] BCBS FEE FOR SERVICE HMO * Guarantor: [employer] Account Type Relation to Patient Date of Phone Billing Address [employer] Lashawn ACCOUNTS PAYABLE [address] [place] [address] Care Teams Cured Meat Packing Supervisor Relationship Specialty Start Date End Date Sb Muñiz [address] [address] PCP - General Internal Medicine 12/02/11
--- OUTSIDE RECORDS SUMMARY | 2025-07-17 07:23 | XMS_ITS | Clinical Summary ---
Author Organization [facility] Address [address] [facility] [address] [place] [address] Phone Care Team Providers Care Director Ambulatory Name Role Phone Ron Owens NP Primary [...] 12/18/2009 ZOSTER VACCINES (1 of 2) 12/18/2009 INFLUENZA VACCINE (#1) 2025 COVID-19 VACCINE (1 - 2024-2 6 season) 2025 RSV VACCINE (1 - 1-dose 75+ series) [...] topic Medical Devices Not on file Insurance [facility] [employer] PLANS DIRECT DIRECT [id number] PLANS DIRECT [id number] [place] [address] PLANS DIRECT [facility] DIRECT [facility] DIRECT Care Teams Director Ambulatory Relationship Specialty Start Date End Date Ron Owens NP [address] [facility] [place] [address] PCP - General Nurse Practitioner 04/22/23 Additional Source Comments The information contained in this document represents components of the legal health record. It is not the complete legal health record.[facility]
--- OUTSIDE RECORDS SUMMARY | 2025-07-17 07:23 | XMS_ITS | Data Portability ---
Author Organization [place] [facility] Address [address] [address] Care Team Providers Care Section Gang Name Role Phone MIRACLE WAY Primary Care [...] his audiogram to take back to his skein straightener at [facility] audiology to ensure that his hearing [...] in 6 months with hearing test first [email or web address] Not available 03/15/2024 10:30:18 09/15/2024 09/15/2024 Patient continue s to demonstrate fluctuating hearing loss bilaterally, as well as chronic pressure sensation in his head and overall sensitivity to light, sound and activity. In addition, his balance disturbance pattern is much more likely to represent vestibular migraine than M ni re's disease. I have recommended we initiate low-dose [...] able to stabilize the underlying neurological phenomenon. [email or web address] Not available 09/15/2024 10:15:42 11/01/2024 11/01/2024 Patient with combination of M ni re's and vestibular migraine who comes back after [...] 2 months for reevaluation and audiometric testing. [email or web address] Not available 11/01/2024 09:46:07 01/03/2025 01/03/2025 Patient with combination of M ni re's and vestibular migraine who comes back after [...] his audiogram to bring back to his skein straightener at [facility] audiology to ensure that his hearing aids are adjusted to match his current level of hearing loss. He will continue on nortriptyline, as well as the vitamin B2, magnesium, and identification and illumination of migraine triggers. Follow-up in 6 months for reevaluation of hearing and symptom results. [email or web address] Not available 01/03/2025 11:57:01 Plan of Treatment [...] nortripty line 10 mg capsule 2024 025 [facility] [id number], [address], [place], [address], 11/01/2024 09:42:34 nortripty line 10 mg capsule 2023 024 [id number], [address], [place], [address], 09/15/2024 10:10:22 Patient TargetsNo targets recorded. Patient InstructionsNo instructions recorded. Reason for Referral None Reported. Results Created Date Observation Date Name Description Value Unit Range Abnormal Flag Note LastModifiedBy Organization Detail LastModifiedTime 03/16/20 audio gram No observ ation record ed. [email or web address] Not Available 02/20 16:31:06 05/12/20 24 03/15/2024 [...] ed. BARCODE Not Available 2023 17:51:38 01/04/20 audio gram No observ ation record ed. BARCODE Not Available 2024 13:33:23 01/05/20 25 audio gram No observ ation record ed. BARCODE Not Available 2024 11:48:33 Result Notes None recorded. Problems Name Problem SNOMED Code Status Onset Date Resolution Date Notes Provider Name and Address Organization Details Recorded Time Sensorin eural hearing loss of bilatera l ears 424721102 Active 2021 Sensorin eural hearing loss, bilatera l; Note: Date Diagnose d: 2 10:46 AM (H90.3) Not Available [facility] 4 02:20:52 Benign paroxysm al position al vertigo 473657856 Completed 202104/22/2024 Benign paroxysm al vertigo, unspecif ied ear; Note: Date Diagnose d: 2 10:49 AM (H81.10) Not Available [facility] 4 02:20:50 Disorder of nasal sinus 0430795 Active 2021 Perforat ion of nasal septum NOS; Note: Date Diagnose d: 2 10:46 AM (J34.89) Not Available [facility] 4 02:20:07 Disorder of the nose 57810335 Active 11/01/ 2022 Perforat ion of nasal septum NOS; Note: Date Diagnose d: 2 10:46 AM (J34.89) Not Available [facility] 4 02:20:07 Bilatera l tinnitus 40963554965 02 Active 2021 Tinnitus , bilatera l; Note: Date Diagnose d: 2 10:46 AM (H93.13) Not Available [facility] 4 02:20:16 Vertigo of central origin 75864222 Active 2022 Vertigo of central origin; Note: Date Diagnose d: 3 11:35 AM (H81.4) Not Available [facility] 4 02:20:09 Refracto ry migraine 376487051 Active 2022 Other migraine , intracta ble, without status migraino sumit; Note: Date Diagnose d: 3 11:35 AM (G43.819 ) Not Available [facility] 4 02:20:36 M ni re's disease 00208563 Active 2022 Meniere' s disease, left ear; Note: Date Diagnose d: 07/16/20 23 8:57 AM (H81.02) Not Available [facility] 4 02:19:58 Impacted cerumen of bilatera l ears 36058743063 83204 Active 2023 EMMIE MCKEON MD [address] [place] [address], [phone] , [facility] 4 10:31:01 Problem Notes None recorded. Procedures Surgical History Date Name Laterality Status Provider Name and Address Organization Details Recorded Time 5 Comp Audio with Tymps - 32818 & 41698 completed EMILY GREEN [address] [place] [address],[address], [address], [facility] 01/03/2025 11:26:43 5 Cerumen removal with microscope bilateral completed EMMIE MCKEON MD [address] [place] [address],[address], [address], [facility] 11/01/2024 09:47:06 4 Air & Speech Audio with Tymps - 33063, 17433 & 48026 completed MILO HENDRICKS, AUD [address] [facility],[address], [address], [facility] - [facility] 09/15/2024 09:41:13 4 Comp Audio with Tymps - 34171 & 34759 completed JAIME TOBIN, AUD [address] [facility],[address], [address], [facility] - [facility] 03/15/2024 09:20:28 4 Cerumen removal with microscope bilateral completed EMMIE MCKEON MD [address] [facility],[address], [address], [facility] - [facility] 03/15/2024 10:24:32 Kidney Stone Removal completed Genny Draper [facility] 03/15/2024 09:43:01 Imaging Results None recorded. Procedure Notes None recorded. Medical Equipment None Reported. Allergies No known drug allergies Medications Name Sig Start Date Stop Date Status Note LastModified by Organization Details LastModified Time triamtere ne 37.5 mg-hydroc hlorothia zide 25 mg capsule Take 1 capsule by mouth once a day 11/18 completed Medicati on ID: [id number] B rand Name: triamter kristin-hydr ochlorot hiazid S end Method: E-Prescr ibed Sub s Allowed: subs OK Medic ationGen ericName : triamter kristin-hydr ochlorot hiazid Not Available Not Available Not Available nortripty line 10 mg capsule Take 2 capsules every day by oral route at dinner. active Not Available Not Available No t Available Vitals Date Recorded Body height Body mass index (BMI) Body weight Provider Name and Address Organization Details Last Updated DateTime 11/01/2024 177.8 cm 29.4 kg/m2 45148.44 g Gracie Zambrano [place] [facility] 11/01/2024 09:28:36 Date Recorded Body height Body weight Provider Name and Address Organization Details Last Updated DateTime 01/03/2025 177.8 cm 23705.44 g Genny Draper [place] [facility] 01/03/2025 11:12:04 Date Recorded Body height Body mass index (BMI) Body weight Provider Name and Address Organization Details Last Updated DateTime 03/15/2024 177.8 cm 29.4 kg/m2 86181.44 g Genny Draper [place] [facility] 03/15/2024 09:42:31 Date Recorded Body height Body mass index (BMI) Body weight Provider Name and Address Organization Details Last Updated DateTime 09/15/2024 177.8 cm 29.4 kg/m2 79193.44 g Brynn Johnson [place] [facility] 09/15/2024 09:47:17 Social History None recorded. Functional Status None recorded. Mental Status None recorded. Family History Nothing Reported. Medical History Condition Response Tonsil Infections N Emphysema N Glaucoma N Depression Y COPD N Nasal or Sinus Problems N Anesthesia Complications N Arthritis Y Hearing Loss Y Cancer N Stroke N High Cholesterol Y Liver Disease N Headaches Y Fibromyalgia N Speech Delay N Kidney Disease N Allergies/Hayfever N Heart Problems N Anxiety Y Migraines Y Thyroid Problems N Developmental Delay N Anemia N Immune System Disorder N Heart Attack ([place]) N Other Skin Condition Y Diabetes N Rhinitis N Bleeding Disorder N Food Allergy N Hyperlipidemia N Dementia N Nasal polyps N Asthma N Sleep Disorder N GERD/Reflux N Hypertension N Past Encounters Encounter ID Performer Location Encounter Start Date Encounter Closed Date Diagnosis/Indication Diagnosis SNOMED-CT Code Diagnosis ICD10 Code Diagnosis IMO Codes Diagnosis Note [id number] EMMIE MCKEON MD [facility] [address] [address] 03/15/2024 09:07:21 03/15/2024 10:34:34 M ni re's disease 22259671 H81.02 Refractory migraine 4238 50793 G43.819 Vertigo of central origin 60057044 H81.4 Sensorineu ral hearing loss of bilateral ears 985957154 H90.3 Right Ear:Modera te sloping to a profound SNHL with fair speech discrimina tion.Type A tympanogra m.Left Ear:Modera tely-sever e sloping to a severe SNHL with good speech discrimina tion.Type A tympanogra m. Bilateral tinnitus 36403 79442 102 H93.13 Impacted c erumen of bilateral ears 5488371048 423105 H61.23 [id number] EMMIE MCKEON MD [facility] [address] [address] 09/15/2024 08:53:08 09/15/2024 10:18:47 M ni re's disease 63760537 H81.02 Refractory migraine 4238 23091 G43.819 Vertigo of central origin 10890064 H81.4 Bilateral tinnitus 32930 19274 102 H93.13 Sensorineu ral hearing loss of bilateral ears 056900054 H90.3 Audiologic al evaluation results: Right ear: Moderately -severe sloping to profound sensorineu ral hearing loss with poor word recognitio n. Left ear: Moderately -severe sloping to severe sensorineu ral hearing loss with poor word recognitio n. Tympanomet ry: Right Ear:Type A Left Ear:Type A [id number] EMMIE MCKEON MD [facility] [address] [address] 11/01/2024 08:44:57 11/01/2024 09:45:44 Sensorineural hearing loss of bilateral ears 583084362 H90.3 Patient will continue with full-time use of binaural amplificat ion. M ni re's disease 96458961 H81.02 Refractory migraine 4238 82702 G43.819 Vertigo of central origin 35073570 H81.4 Impacted c erumen of bilateral ears 3312360127 531691 H61.23 Cerumen disimpacte d bilaterall y. Recommende d use of warm water irrigation s to prevent impactions due to hearing aid use. Recommende d against use of Q-tips [id number] EMMIE MCKEON MD [facility] [address] [address] 01/03/2025 10:58:01 01/03/2025 11:56:05 Sensorineural hearing loss of bilateral ears 707946608 H90.3 Patient will continue with full-time use of binaural amplificat ion. Audiologic al evaluation results:Ri ght ear:Mild to profound sensorineu ral hearing loss with fair word recognitio n.Left ear:Modera te sensorineu ral hearing loss with fair word recognitio n.Tympanom etry:Right Ear:Type ALeft Ear:Type A M ni re's disease 21791566 H81.02 Refractory migraine 4238 44598 G43.819 Vertigo of central origin 85363636 H81.4 Health Concerns Section Related Observation LastModified by Organization Detai ls LastModified Time None Recorded Concern Status LastModified by Organization Details LastModified Time None Recorded Advance Directives Directive None Recorded Payers Insurance Date Sequence Insurance Name Policy Number Policy Santos Covered Member ID Santos Member ID Guarantor Name 07/15/2025 1 [email or web address] [place] (MEDICARE REPLACEMENT/A DVANTAGE - PPO) [id number] Oliverio Deluna [id number] Oliverio Deluna 01/03/2025 1 MEDICARE B-[place]: [facility] [employer] Oliverio Deluna [id number] Oliverio Deluna 01/03/2025 1 [facility] - HEALTH NET PLAN (MEDICAID HMO) [place] Oliverio Deluna [id number] Oliverio Deluna Notes Date Note Type Note Provider Name and Address Organization Details Recorded Time 03/15/2024 text/html 63-year-old male with likely combination of vestibular migraine and left-sided M ni re's disease who turns today for reevaluation. Could not tolerate triamterene/hydrochl orothiazide due to lightheadedness. Patient had significant improvement with symptoms following migraine diet as well as magnesium and vitamin B2 and turmeric supplementation. Using binaural amplification dispensed at [facility] audiology. Patient comes back for reevaluation [...] fluctuating hearing loss day-to-day EMMIE MCKEON MD [address] [place] [address], [address], [facility] - [facility] 03/15/2024 10:31:37 09/15/2024 text/html 63-year-old male with likely combination of vestibular migraine and left-sided M ni re's disease who turns today for reevaluation. Could not tolerate triamterene/hydrochl orothiazide due to lightheadedness. Patient had significant improvement with symptoms following migraine diet as well as magnesium and vitamin B2 and turmeric supplementation. Using binaural amplification dispensed at [facility] audiology. Patient comes back for reevaluation [...] and loud noise exposure. EMMIE MCKEON MD [address] [place] [address], [place], [address], [facility] - [facility] 09/15/2024 10:16:01 11/01/2024 text/html Patient with likely combination of vestibular migraine and left-sided M ni re's disease, intolerant of triamterene/hydrochl orothiazide. Patient had [...] in both ears. EMMIE MCKEON MD [address] [facility] [address], [place], [address], [facility] - [facility] 11/01/2024 09:47:45 01/03/2025 text/html Patient with likely combination of vestibular migraine and left-sided M ni re's disease, intolerant of triamterene/hydrochl orothiazide. Patient had [...] last time.Currently using binaural amplification manage at [facility] audiology EMMIE MCKEON MD [address] [facility] [address], [place], [address], [facility] 01/03/2025 11:57:52
[2025-07-17 11:13] LABS: Prostate Specific Antigen 1.33 ng/mL (<0.05-4.0)
== END 2025-07-17 07:21 | disposition home or self-care (01) ==
LOC: HO.HMGCLDS 07:20
PROVIDERS: PCP Nurse Practitioner Family; Visit Provider Nurse Practitioner Family
DX: N40.0 Benign prostatic hyperplasia without lower urinary tract symptoms (principal); R35.1 Nocturia; N28.1 Cyst of kidney, acquired; Z12.5 Encounter for screening for malignant neoplasm of prostate
CPT/HCPCS: 36415; 84153

== ENCOUNTER 2025-07-25 09:10 | Outpatient (REF) | payer SELFPAY ==
--- OUTSIDE RECORDS SUMMARY | 2025-07-25 09:55 | XMS_ITS | Data Portability ---
Author Organization [place] - [facility], Allergy Address [address] [address] Care Team Providers Care Maintenance Mechanic Engine Name Role Phone [address]IRAC[address] Primary Care Provider [phone] Assessment Encounter Date Assessment Date Assessment LastModified [...] his audiogram to take back to his claims adjuster at [facility] audiology to ensure that his hearing [...] in 6 months with hearing test first [email or web address] Not available 03/15/2024 10:30:18 09/15/2024 09/15/2024 Patient [...] able to stabilize the underlying neurological phenomenon. Not available 09/15/2024 10:15:42 11/01/2024 11/01/2024 Patient [...] 2 months for reevaluation and audiometric testing. Not available 11/01/2024 09:46:07 01/03/2025 01/03/2025 Patient [...] his audiogram to bring back to his claims adjuster at [facility] audiology to ensure that his hearing aids are adjusted to match his current level of hearing loss. He will continue on nortriptyline, as well as the vitamin B2, magnesium, and identification and illumination of migraine triggers. Follow-up in 6 months for reevaluation of hearing and symptom results. Not available 01/03/2025 11:57:01 07/18/2025 07/18/2025 Patient with combination of M ni re's and vestibular migraine. Patient is doing better with regards to symptoms on nortriptyline 20 mg at bedtime. He will continue on nortriptyline, as well as the vitamin B2, magnesium, and identification and elimination of migraine triggers. I asked him to pay attention if he has flareup of symptoms to try to determine what triggered his symptoms. We did discuss that the recent stressor of his parental illness is likely the cause of his recent symptoms. [email or web address] Not available 07/18/2025 11:45:29 Plan of Treatment Reminders Order Date Submit Date Provider Last Modified By Organization Details Last Modified Time Details Appointments Hearing Test First 2025 11:00A M Hearing Test Not available Not available Not available Establish ed 15 2025 11:30A M OSCAR HARTMAN PA-C Not available Not available Not available Lab None recorded. Referral None recorded. Procedures None recorded. Surgeries None recorded. Imaging None recorded. Medication Orders nortripty line 10 mg capsule 2024 025 [place] [facility] [id number], [address] [place], [address], 11/01/2024 09:42:34 nortripty line 10 mg capsule 2023 024 [place] [facility] [id number], [address] [facility], [place], [address], 09/15/2024 10:10:22 Patient TargetsNo targets recorded. Patient InstructionsNo instructions recorded. Reason for Referral None Reported. Results Created Date Observation Date Name Description Value Unit Range Abnormal Flag Note LastModifiedBy Organization Detail LastModifiedTime 03/16/20 audio gram No observ ation record ed. [email or web address] Not Available 02/20 16:31:06 05/12/20 24 03/15/2024 imagi ng/di agnos tic resul t No observ ation record ed. [email or web address] Not Available 18:56:54 05/12/2006/02/2023 imagi ng/di agnos tic resul t No observ ation record ed. [email or web address] Not Available 18:56:56 05/12/2007/06/2023 imagi ng/di agnos tic resul t No observ ation record ed. [email or web address] Not Available 18:56:57 05/12/20 24 07/16/2023 imagi ng/di agnos tic resul t No observ ation record ed. [email or web address] Not Available 18:57:04 05/12/20 24 07/16/2023 imagi ng/di agnos tic resul t No [...] record ed. [email or web address] Not Available 18:57:35 09/15/20 24 audio gram No observ ation [...] eural hearing loss of bilatera l ears 160455629 Active 2021 Sensorin eural hearing loss, bilatera l; Note: Date Diagnose d: 2 10:46 AM (H90.3) Not Available [facility] 4 02:20:52 Benign paroxysm al position al vertigo 054174551 Completed 202104/22/2024 Benign paroxysm al vertigo, unspecif ied ear; Note: Date Diagnose d: 2 10:49 AM (H81.10) Not Available [facility] 4 02:20:50 Disorder of nasal sinus 3718206 Active 2021 Perforat ion of nasal septum NOS; Note: Date Diagnose d: 2 10:46 AM (J34.89) Not Available [facility] 4 02:20:07 Disorder of the nose 58660056 Active 2021 Perforat ion of nasal septum NOS; Note: Date Diagnose d: 2 10:46 AM (J34.89) Not Available [facility] 4 02:20:07 Bilatera l tinnitus 64493289857 02 Active 2021 Tinnitus , bilatera l; Note: Date Diagnose d: 2 10:46 AM (H93.13) Not Available [facility] 4 02:20:16 Vertigo of central origin 26045975 Active 2022 Vertigo of central origin; Note: Date Diagnose d: 3 11:35 AM (H81.4) Not Available [facility] 4 02:20:09 Refracto ry migraine 439747015 Active 2022 Other migraine , intracta ble, without status migraino sumit; Note: Date Diagnose d: 3 11:35 AM (G43.819 ) Not Available [facility] 4 02:20:36 M ni re's disease 50890813 Active 2022 Meniere' s disease, left ear; Note: Date Diagnose d: 07/16/20 23 8:57 AM (H81.02) Not Available [facility] 4 02:19:58 Impacted cerumen of bilatera l ears 03876497988 08046 Active 2023 EMMIE MCKEON MD [address] [place] [address], [facility] [place], [address] , [facility] - [facility] 5 11:42:39 Problem Notes None recorded. Procedures Surgical History Date Name Laterality Status Provider Name and Address Organization Details Recorded Time 5 Cerumen removal with microscope bilateral completed EMMIE MCKEON MD [address] [facility],[address], [address], [facility] - [facility] 07/18/2025 11:45:14 5 Comp Audio with Tymps - 39010 & 75441 completed JEF SLADE, [address], [address], [place] - [facility] 01/03/2025 11:26:43 5 Cerumen removal with microscope bilateral completed EMMIE MCKEON MD [address] [facility],[address], [address], [place] - [facility] 11/01/2024 09:47:06 4 Air & Speech Audio with Tymps - 09949, 70643 & 77578 completed MILO HENDRICKS, [address], [address], [place] - [facility] 09/15/2024 09:41:13 4 Comp Audio with Tymps - 53343 & 41233 completed JAIME TOBIN, [address], [address], [place] - [facility] 03/15/2024 09:20:28 4 Cerumen removal with microscope bilateral completed EMMIE MCKEON MD [address] [facility],[address], [address], [place] - [facility] 03/15/2024 10:24:32 Kidney Stone Removal completed Genny Draper [place] - [facility] 03/15/2024 09:43:01 Imaging Results None recorded. Procedure Notes None recorded. Medical Equipment None Reported. Allergies No known drug allergies Medications Name Sig Start Date Stop Date Status Note LastModified by Organization Details LastModified Time triamtere ne 37.5 mg-hydroc hlorothia zide 25 mg capsule Take 1 capsule by mouth once a day 11/184 completed Medicati on ID: [id number] B rand Name: esther kristin-hydr yayolorot odalysazid S end Method: E-Prescr ibed Sub s Allowed: subs OK Medic ationGen ericName : esther kristin-hydr yayolorot odalysazid Not Available Not Available Not Available nortripty line 10 mg capsule Take 2 capsules every day by oral route at dinner. active Not Available Not Available No t Available Vitals Date Recorded Body height Body mass index (BMI) Body weight Provider Name and Address Organization Details Last Updated DateTime 11/01/2024 177.8 cm 29.4 kg/m2 61547.44 g Gracie Zambrano [place] - [facility] 11/01/2024 09:28:36 Date Recorded Body height Body weight Provider Name and Address Organization Details Last Updated DateTime 01/03/2025 177.8 cm 48314.44 g Genny Draper [place] [facility] 01/03/2025 11:12:04 Date Recorded Body height Body mass index (BMI) Body weight Provider Name and Address Organization Details Last Updated DateTime 03/15/2024 177.8 cm 29.4 kg/m2 47997.44 g Genny Draper [facility] 03/15/2024 09:42:31 Date Recorded Body height Provider Name an d Address Organization Details Last Updated DateTime 07/18/2025 177.8 cm Genny Draper [facility] 07/18/2025 10:49:35 Date Recorded Body height Body mass index (BMI) Body weight Provider Name and Address Organization Details Last Updated DateTime 09/15/2024 177.8 cm 29.4 kg/m2 02822.44 g Brynn Johnson [facility] 09/15/2024 09:47:17 Social History None recorded. [...] Disorder N Anesthesia Complications N Heart Attack (IA) N Other Skin Condition Y Diabetes N [...] Note [id number] EMMIE MCKEON MD [facility] [address] [address] 03/15/2024 09:07:21 03/15/2024 10:34:34 M ni re's disease 89023755 H81.02 Refractory migraine 4238 41683 G43.819 Vertigo of central origin 15362020 H81.4 Sensorineu ral hearing loss of bilateral ears 393901619 H90.3 Right Ear:Modera te sloping to a profound SNHL with fair speech discrimina tion.Type A tympanogra m.Left Ear:Modera tely-sever e sloping to a severe SNHL with good speech discrimina tion.Type A tympanogra m. Bilateral tinnitus 42003 72798 102 H93.13 Impacted c erumen of bilateral ears 9048003356 796968 H61.23 [id number] EMMIE MCKEON MD [facility] [address] [address] 09/15/2024 08:53:08 09/15/2024 10:18:47 M ni re's disease 57982792 H81.02 Refractory migraine 4238 25810 G43.819 Vertigo of central origin 96354150 H81.4 Bilateral tinnitus 44307 42284 102 H93.13 Sensorineu ral hearing loss of bilateral ears 178648690 H90.3 Audiologic al evaluation results: Right ear: Moderately -severe sloping to profound sensorineu ral hearing loss with poor word recognitio n. Left ear: Moderately -severe sloping to severe sensorineu ral hearing loss with poor word recognitio n. Tympanomet ry: Right Ear:Type A Left Ear:Type A [id number] EMMIE MCKEON MD [facility] [address] [address] 11/01/2024 08:44:57 11/01/2024 09:45:44 Sensorineural hearing loss of bilateral ears 025374278 H90.3 Patient will continue with full-time use of binaural amplificat ion. M ni re's disease 16474211 H81.02 Refractory migraine 4238 32597 G43.819 Vertigo of central origin 37552416 H81.4 Impacted c erumen of bilateral ears 0826810634 410420 H61.23 Cerumen disimpacte d bilaterall y. Recommende d use of warm water irrigation s to prevent impactions due to hearing aid use. Recommende d against use of Q-tips [id number] EMMIE MCKEON MD [facility] [address] [address] 01/03/2025 10:58:01 01/03/2025 11:56:05 Sensorineural hearing loss of bilateral ears 004957014 H90.3 Patient will continue with full-time use of binaural amplificat ion. Audiologic al evaluation results:Ri ght ear:Mild to profound sensorineu ral hearing loss with fair word recognitio n.Left ear:Modera te sensorineu ral hearing loss with fair word recognitio n.Tympanom etry:Right Ear:Type ALeft Ear:Type A M ni re's disease 13741375 H81.02 Refractory migraine 4238 19957 G43.819 Vertigo of central origin 93928941 H81.4 [id number] EMMIE MCKEON MD [facility] [address] [address] 07/18/2025 10:22:53 07/18/2025 12:20:33 Sensorineural hearing loss of bilateral ears 275351444 H90.3 Patient will continue with full-time use of binaural amplificat ion. M ni re's disease 52935465 H81.02 Refractory migraine 4238 78063 G43.819 Vertigo of central origin 65576806 H81.4 Impacted c erumen of bilateral ears 4721263331 488262 H61.23 [id number] Cerumen disimpacte d bilaterall y. He has a naturally small ear canals which will likely be prone to future impaction. Recommende d use of warm water irrigation s to prevent impactions due to hearing aid use. Recommende d against use of Q-tips. Follow-up with physician assistant county attorney in 6 months for next cerumen removal. Audiometri c testing can be completed at that time if the patient notices any changes in hearing. Health Concerns Section Related Observation LastModified by Organization Detai ls LastModified Time None Recorded Concern Status LastModified by Organization Details LastModified Time None Recorded Advance Directives Directive None Recorded Payers Insurance Date Sequence Insurance Name Policy Number Policy Santos Covered Member ID Santos Member ID Guarantor Name 07/18/2025 1 [employer] [place] (MEDICARE REPLACEMENT/A DVANTAGE - PPO) [id number] Oliverio Deluna [id number] Oliverio Deluna 01/03/2025 1 [place] [employer] Oliverio Deluna [id number] Oliverio Deluna 01/03/2025 1 [facility] - HEALTH NET PLAN (MEDICAID HMO) [place] Oliverio Deluna [id number] Oliverio Deluna Notes Date Note Type Note Provider Name and Address Organization Details Recorded Time 03/15/2024 text/html 63-year-old male with likely combination of vestibular migraine and left-sided M ni re's disease who turns today for reevaluation. Could not tolerate triamterene/hydrochlo rothiazide due to lightheadedness. Patient had significant improvement [...] fluctuating hearing loss day-to-day EMMIE MCKEON MD [address] [place] [address], [address], [facility] - [facility] 03/15/2024 10:31:37 09/15/2024 text/html 63-year-old male with likely combination of vestibular migraine and left-sided M ni re's disease who turns today for reevaluation. Could not tolerate triamterene/hydrochlo rothiazide due to lightheadedness. Patient had significant improvement [...] and loud noise exposure. EMMIE MCKEON MD [address] [place] [address], [address], [facility] - [facility] 09/15/2024 10:16:01 11/01/2024 text/html Patient with likely combination of vestibular migraine and left-sided M ni re's disease, intolerant of triamterene/hydrochlo rothiazide. Patient had some response to identification and [...] in both ears. EMMIE MCKEON MD [address] [facility],[address], [address], [facility] 11/01/2024 09:47:45 01/03/2025 text/html Patient with likely combination of vestibular migraine and left-sided M ni re's disease, intolerant of triamterene/hydrochlo rothiazide. Patient had some response to identification and [...] last time.Currently using binaural amplification manage at [facility] audiology EMMIE MCKEON MD [address] [facility],[address], [address], [facility] 01/03/2025 11:57:52 07/18/2025 text/html Patient with likely combination of vestibular migraine and left-sided M ni re's disease, intolerant of triamterene/hydrochlo rothiazide. Patient had some response to identification and elimination of migraine triggers as well as use of magnesium and vitamin B2. Due to persistent symptoms we elected to start him on low-dose nortriptyline, 10 mg at bedtime which was started at the end of August 2024 which was increased the dosage to 20 mg in October 2024. This seemed to eliminate his underlying balance disturbance. Patient reports no major balance issues since his last visit. Mild lightheadedness symptoms only, no true severe vertigo. Patient also notes that the hearing in the right ear seems better than it was last time. Patient does notice more sensation of hearing changes in the right ear when he is under stress. He has been dealing with illness in his parents recently and has been noticing more symptoms in this regard. Currently using binaural amplification manage at [facility] audiology EMMIE MCKEON MD [address] [place] [address], [address], [facility] - [facility] 07/18/2025 11:46:07
--- OUTSIDE RECORDS SUMMARY | 2025-07-25 09:55 | XMS_ITS | Clinical Summary ---
Author Organization [facility] Address [address] [place] [address] Care Team Providers Care Spinning Lathe Operator Automatic Name Role Phone Sb Muñiz Primary Care Provider [phone] Allergies No known active allergies Medications * [...] BCBS FEE FOR SERVICE HMO * Guarantor: [employer] Account Type Relation to Patient Date of Phone Billing Address [employer] PAYABLE [address] [place] [address] Care Teams Spinning Lathe Operator Automatic Relationship Specialty Start Date End Date Sb Muñiz [address] [address] PCP - General Internal Medicine 12/02/11
== END 2025-07-25 09:11 | disposition home or self-care (01) ==
LOC: HO.HAP 09:10
PROVIDERS: Visit Provider Nurse Practitioner Family
DX: Z46.1 Encounter for fitting and adjustment of hearing aid (principal); H90.3 Sensorineural hearing loss, bilateral
CPT/HCPCS: V5267

== ENCOUNTER 2025-07-25 09:25 | Outpatient (AMB) | payer MEDICARE, SELFPAY ==
--- NOTE | 2025-07-25 09:30 | A.OFFVIS_ITS ---
Intake Visit Reasons: 6m/PSA/PVR Intake Note: Patient is present for PSA/PVR Urology Med: Vitamin B6 Antibiotic Allergy: None Blood Thinner: None PVR:98ML Aboriginal Education Worker Coordinator Required: No Accompanied by: Self / Same As Patient Allergies No Known Allergies Allergy (Verified 07/25/25 10:12) Medication List - Last Reconciled 07/25/25 by AGUSTIN Chung-JERAD lovastatin 20 mg PO DAILY magnesium oxide 400 mg PO DAILY nortriptyline 10 mg PO DAILY [omega 3 fish oil 1,000 mg PO DAILY] omega-3 fatty acids 500 mg PO DAILY pyridoxine (vitamin B6) 100 mg PO DAILY riboflavin (vitamin B2) 400 mg PO DAILY vitamin D3-vitamin K2 25 mcg (1,000 unit)-90 mcg tabs PO HPI Comments Details: Oliverio is a very pleasant 64-year-old male patient of Dr. Valdovinos. He has a past medical history of Meniere's disease, vertigo, and hearing loss. He presents to the office today for follow-up of his renal cysts in lower urinary tract symptoms. In discussion with the patient today reports to be doing and feeling well. He denies having had any bothersome urinary issues or concerns since his last office visit here. He has previously trialed alfuzosin and Flomax and did not find these medications helpful. He reports episodes of nocturia at most 2 times per night however describes these episodes as infrequent. He discusses his ongoing issues with vertigo and Meniere's and follows up with Dr. Quiroz. Previous workup has included a retroperitoneal ultrasound 11/15 noting bilateral kidneys with no caluli and or hydronephrosis. bilateral thin-walled possible Bosniak 1 cysts, largest on the left measuring 3.2 x 2.8 x 2.7 cm. The bladder is unremarkable. Prevoid bladder volume 285. Post void bladder volume is 60ml's. Prostate measures 4.7 x 4.5 x 4.4 cm. No acute findings. He continues to report episodes of nocturia 2-3 times per night however it is not always frequent. In review of patient's chart PSAs are as follows: 06/12 0.9, 08/13 1.4, 06/14 1.2, 07/15 1.3 He otherwise denies urinary urgency, urinary frequency, incontinence, hematuria, dysuria, foul smelling urine, changes to urinary stream, flank pain, fever, and or chills. Initially patient was unable to void and postvoid residual was 98 mL however he was able to provide urine for urinalysis and postvoid residual 11ml's. When asked he denies any signs and symptoms of sleep apnea. We discussed potential causes of nocturia as well as further treatment options. He otherwise offers no other issues or concerns at this time. [facility]LY [facility] Medical History Vertigo of central origin Refractory migraine Internal hemorrhoids Vertigo Hearing loss Surgical History Status post colonoscopy Social History Housing: House Patient Tobacco Use Status: Never used Tobacco e-Cigarette/Vaping Use: Never Used Second Hand Smoke Exposure: No Current occupational status: employed Current occupation: [employer] Cognitive needs: No Hearing needs: No Vision needs: No Review of Systems Const All systems reviewed & are unremarkable except as noted in HPI and below Physical Exam Const General: cooperative, healthy appearing, comfortable, no acute distress, well developed, alert and awake Orientation/consciousness: patient oriented x3 Limitations: other limitations (Bilateral hearing aids-hearing impaired) HEENT Head: Yes normal to inspection, Yes normocephalic and Yes atraumatic Ears: hearing grossly normal bilaterally Eyes General: appearance normal, both eyes and all related structures Neck Neck: Yes normal visual inspection and Yes trachea midline Chest Chest palpation & inspection: normal inspection of the chest Resp Effort & Inspection: normal respiratory effort and able to speak in complete sentences Cardio Rate: regular rate GI Inspection: Yes normal to inspection General: Yes no CVA tenderness Back/Spine/Pelvis Back: no CVA tenderness Skin General skin exam: no rashes or lesions noted Neuro General: patient oriented x3 Extrem General: Yes normal to inspection Psych Appearance: grossly normal and well kempt Mental Status: mental status grossly normal Speech and movement: Normal speech and movement present and Clear speech present Affect: normal affect Attitude: cooperative Thought process: Normal thought process present Thought content: Normal thought content present Insight: Fair insight present (Psych) Judgement: Fair judgement present (Psych) Office Procedures Post Void Residual Post Residual Void Post Void Residual (PVR): 98 [id number] Void Residual by ultrasound Results AMB Urinalysis, Automated UA Leukoctes 0 Jaqueline/uL Last Edit by Haven Reina [facility] on 07/25/25 09:43 UA Nitrite Negative Last Edit by Haven Reina, A on 07/25/25 09:43 UA Urobilinogen 0.2 mg/dL Last Edit by Haven Reina, A on 07/25/25 09:4 3 UA Protein 0 mg/dL Last Edit by Haven Reina, A on 07/25/25 09:43 UA pH 6.0 Last Edit by Haven Reina, A on 07/25/25 09:43 UA Blood 0 Mikel/uL Last Edit by Haven Reina [facility] on 07/25/25 09:43 UA Specific Theresa 1.010 Last Edit by Haven Reina [facility] on 07/25/25 09: 43 UA Ketone Negative Last Edit by Haven Reina [facility] on 07/25/25 09:43 UA Bilirubin 0 mg/dL Last Edit by Haven Reina A on 07/25/25 09:43 UA Glucose 0 mg/dL Last Edit by Haven Reina [facility] on 07/25/25 09:43 Assessment & Plan Assessment & Plan (1) Renal cyst: Code(s): N28.1 - Cyst of kidney, acquired Category: Medical (2) Nocturia: Code(s): R35.1 - Nocturia Category: Medical (3) Enlarged prostate: Code(s): N40.0 - Benign prostatic hyperplasia without lower urinary tract symptoms Category: Medical Plan In office urinalysis results reviewed with the patient today; as noted above. Most recent PSA results reviewed with the patient today; as noted above. He currently denies any bothersome urinary issues or concerns. He reports be happy with current voiding parameters. We will continue with surveillance monitoring. Will obtain PSA in 1 year. Follow-up in 1 year with PSA and PVR; or sooner with any issues, concerns, and or questions. Orders: Orders AMB Post Void Residual by ultrasound Today N40.0 - Benign prostatic hyperplasia without lower urinary tract symptoms AMB Urinalysis Automated Today Z13.9 - Encounter for screening, unspecified Prostate Specific Antigen 1 Year N40.0 - Benign prostatic hyperplasia without lower urinary tract symptoms Patient Instructions: The patient had an opportunity to ask questions regarding the treatment plan. All questions were answered. Physical exam, labs, and imaging were discussed and reviewed in detail. As well as risks, benefits, and discussion of treatment choices. No major barriers to understanding were identified. The patient expressed understanding and agreement with the above treatment plan. The patient was made aware they should contact our office by phone for worsening of their current condition, the appearance of new symptoms, or with any questions or concerns. Compliance is encouraged with any medications and follow up testing that is ordered. It is a privilege to be allowed the opportunity to participate in? your urological care.? Again, if you have any questions or concerns If you have any questions or concerns please do not hesitate to contact me. The office is [phone]. This note is constructed using voice recognition software. While every effort has been made to ensure accuracy sap analyst errors may have been included. Yours sincerely, ANGELA Chung Coding Level of Care Code Est Pt Level 3 (68511) Complex EM visit Add On G2211 Diagnoses Renal cyst N28.1 Nocturia R35.1 Enlarged prostate N40.0 CPT Codes Post Residual Void - PVR CPT Code: 02711-Rmro Void Residual by ultrasound ([id number])
--- OUTSIDE RECORDS SUMMARY | 2025-07-25 10:25 | XMS_ITS | Clinical Summary ---
Author Organization [facility] Address [address] [facility] [address] [place] [address] Phone Care Team Providers Care Fishing Tool Technician [employer] Name Role Phone Ron Owens NP Primary [...] topic Medical Devices Not on file Insurance [facility] [employer] PLANS DIRECT DIRECT [id number] PLANS DIRECT [id number] [place] [address] PLANS DIRECT [facility] DIRECT [facility] DIRECT Care Teams Fishing Tool Technician [employer] Relationship Specialty Start Date End Date Ron Owens NP [address] [facility] [place] [address] PCP - General Nurse Practitioner 04/22/23 Additional Source Comments The information contained in this document represents components of the legal health record. It is not the complete legal health record.[facility]
--- OUTSIDE RECORDS SUMMARY | 2025-07-25 10:25 | XMS_ITS | Data Portability ---
Author Organization [place] - [facility], Allergy Address [address] [address] Care Team Providers Care Systems Consultant Name Role Phone MIRACLE [address] Primary Care [...] his audiogram to take back to his bull riveter at [facility] audiology to ensure that his hearing [...] in 6 months with hearing test first [email or web address] Not available 03/15/2024 10:30:18 09/15/2024 09/15/2024 Patient [...] able to stabilize the underlying neurological phenomenon. [email or web address] Not available 09/15/2024 10:15:42 11/01/2024 11/01/2024 Patient [...] his audiogram to bring back to his bull riveter at [facility] audiology to ensure that his hearing aids are adjusted to match his current level of hearing loss. He will continue on nortriptyline, as well as the vitamin B2, magnesium, and identification and illumination of migraine triggers. Follow-up in 6 months for reevaluation of hearing and symptom results. [email or web address] Not available 01/03/2025 11:57:01 07/18/2025 07/18/2025 Patient [...] likely the cause of his recent symptoms. [email or web address] Not available 07/18/2025 11:45:29 Plan of Treatment [...] nortripty line 10 mg capsule 2024 025 [facility], [address] [place], [address], 11/01/2024 09:42:34 nortripty line 10 mg capsule 2023 024 [facility], [address] [facility], [place], [address], 09/15/2024 10:10:22 Patient TargetsNo targets recorded. Patient InstructionsNo instructions recorded. Reason for Referral None Reported. Results Created Date Observation Date Name Description Value Unit Range Abnormal Flag Note LastModifiedBy Organization Detail LastModifiedTime 03/16/20 audio gram No observ ation record ed. [email or web address] Not Available 02/20 16:31:06 05/12/20 24 03/15/2024 [...] eural hearing loss of bilatera l ears 081801723 Active 2021 Sensorin eural hearing loss, bilatera l; Note: Date Diagnose d: 2 10:46 AM (H90.3) Not Available [facility] 4 02:20:52 Benign paroxysm al position al vertigo 323466183 Completed 202104/22/2024 Benign paroxysm al vertigo, unspecif ied ear; Note: Date Diagnose d: 2 10:49 AM (H81.10) Not Available [facility] 4 02:20:50 Disorder of nasal sinus 6722104 Active 2021 Perforat ion of nasal septum NOS; Note: Date Diagnose d: 2 10:46 AM (J34.89) Not Available [facility] 4 02:20:07 Disorder of the nose 81088909 Active 2021 Perforat ion of nasal septum NOS; Note: Date Diagnose d: 2 10:46 AM (J34.89) Not Available [facility] 4 02:20:07 Bilatera l tinnitus 53885658238 02 Active 2021 Tinnitus , bilatera l; Note: Date Diagnose d: 2 10:46 AM (H93.13) Not Available [facility] 4 02:20:16 Vertigo of central origin 39763962 Active 2022 Vertigo of central origin; Note: Date Diagnose d: 3 11:35 AM (H81.4) Not Available [facility] 4 02:20:09 Refracto ry migraine 752479879 Active 2022 Other migraine , intracta ble, without status migraino sumit; Note: Date Diagnose d: 3 11:35 AM (G43.819 ) Not Available [facility] 4 02:20:36 M ni re's disease 44583756 Active 2022 Meniere' s disease, left ear; Note: Date Diagnose d: 07/16/20 23 8:57 AM (H81.02) Not Available [facility] 4 02:19:58 Impacted cerumen of bilatera l ears 73525175160 29564 Active 2023 EMMIE MCKEON MD [address] [place] [address], [facility] [place], [address] , [facility] - [facility] 5 11:42:39 Problem Notes None recorded. Procedures Surgical History Date Name Laterality Status Provider Name and Address Organization Details Recorded Time 5 Cerumen removal with microscope bilateral completed EMMIE MCKEON MD [address] [facility],[address], [address], [facility] - [facility] 07/18/2025 11:45:14 5 Comp Audio with Tymps - 93896 & 81430 completed JEF SLADE, [address], [address], [place] - [facility] 01/03/2025 11:26:43 5 Cerumen removal with microscope bilateral completed EMMIE MCKEON MD [address] [facility],[address], [address], [place] - [facility] 11/01/2024 09:47:06 4 Air & Speech Audio with Tymps - 62825, 39958 & 24672 completed MILO HENDRICKS, [address], [address], [place] - [facility] 09/15/2024 09:41:13 4 Comp Audio with Tymps - 60820 & 92453 completed JAIME TOBIN, [address], [address], [place] - [facility] 03/15/2024 09:20:28 4 Cerumen removal with microscope bilateral completed EMMIE MCKEON MD [address] [facility],[address], [address], [place] - [facility] 03/15/2024 10:24:32 Kidney Stone Removal completed Genny Draper [place] - [facility] 03/15/2024 09:43:01 Imaging Results None recorded. Procedure Notes None recorded. Medical Equipment None Reported. Allergies No known drug allergies Medications Name Sig Start Date Stop Date Status Note LastModified by Organization Details LastModified Time triamtere ne 37.5 mg-hydroc hlorothia zide 25 mg capsule Take 1 capsule by mouth once a day 11/184 completed Medicati on ID: [id number] B rand Name: esther kristin-hydr yayolorot odalysazid [...] Updated DateTime 11/01/2024 177.8 cm 29.4 kg/m2 21241.44 g Gracie Zambrano [place] - [facility] 11/01/2024 09:28:36 Date Recorded Body height Body weight Provider Name and Address Organization Details Last Updated DateTime 01/03/2025 177.8 cm 98627.44 g Genny Draper [place] - [facility] 01/03/2025 11:12:04 Date Recorded Body height Body mass index (BMI) Body weight Provider Name and Address Organization Details Last Updated DateTime 03/15/2024 177.8 cm 29.4 kg/m2 74776.44 g Genny Draper [facility] 03/15/2024 09:42:31 Date Recorded Body height Provider Name an d Address Organization Details Last Updated DateTime 07/18/2025 177.8 cm Genny Draper [facility] 07/18/2025 10:49:35 Date Recorded Body height Body mass index (BMI) Body weight Provider Name and Address Organization Details Last Updated DateTime 09/15/2024 177.8 cm 29.4 kg/m2 62178.44 g Brynn Johnson [facility] 09/15/2024 09:47:17 Social History None recorded. [...] Disorder N Anesthesia Complications N Heart Attack ([place]) N Other Skin Condition Y Diabetes N [...] Note [id number] EMMIE MCKEON MD [facility] [address] [address] 03/15/2024 09:07:21 03/15/2024 10:34:34 M ni re's disease 21723458 H81.02 Refractory migraine 4238 03486 G43.819 Vertigo of central origin 02546962 H81.4 Sensorineu ral hearing loss of bilateral ears 412308460 H90.3 Right Ear:Modera te sloping to a profound SNHL with fair speech discrimina tion.Type A tympanogra m.Left Ear:Modera tely-sever e sloping to a severe SNHL with good speech discrimina tion.Type A tympanogra m. Bilateral tinnitus 67265 35402 102 H93.13 Impacted c erumen of bilateral ears 7017249398 136121 H61.23 [id number] EMMIE MCKEON MD [facility] [address] [address] 09/15/2024 08:53:08 09/15/2024 10:18:47 M ni re's disease 04907497 H81.02 Refractory migraine 4238 99977 G43.819 Vertigo of central origin 70715116 H81.4 Bilateral tinnitus 37206 86622 102 H93.13 Sensorineu ral hearing loss of bilateral ears 237995926 H90.3 Audiologic al evaluation results: Right ear: Moderately -severe sloping to profound sensorineu ral hearing loss with poor word recognitio n. Left ear: Moderately -severe sloping to severe sensorineu ral hearing loss with poor word recognitio n. Tympanomet ry: Right Ear:Type A Left Ear:Type A [id number] EMMIE MCKEON MD [facility] [address] [address] 11/01/2024 08:44:57 11/01/2024 09:45:44 Sensorineural hearing loss of bilateral ears 752327408 H90.3 Patient will continue with full-time use of binaural amplificat ion. M ni re's disease 59737300 H81.02 Refractory migraine 4238 81771 G43.819 Vertigo of central origin 57417875 H81.4 Impacted c erumen of bilateral ears 2321951909 706704 H61.23 Cerumen disimpacte d bilaterall y. Recommende d use of warm water irrigation s to prevent impactions due to hearing aid use. Recommende d against use of Q-tips [id number] EMMIE MCKEON MD [facility] [address] [address] 01/03/2025 10:58:01 01/03/2025 11:56:05 Sensorineural hearing loss of bilateral ears 010673923 H90.3 Patient will continue with full-time use of binaural amplificat ion. Audiologic al evaluation results:Ri ght ear:Mild to profound sensorineu ral hearing loss with fair word recognitio n.Left ear:Modera te sensorineu ral hearing loss with fair word recognitio n.Tympanom etry:Right Ear:Type ALeft Ear:Type A M ni re's disease 94648070 H81.02 Refractory migraine 4238 61162 G43.819 Vertigo of central origin 12767392 H81.4 [id number] EMMIE MCKEON MD [facility] [address] [address] 07/18/2025 10:22:53 07/18/2025 12:20:33 Sensorineural hearing loss of bilateral ears 220711982 H90.3 Patient will continue with full-time use of binaural amplificat ion. M ni re's disease 93484139 H81.02 Refractory migraine 4238 46421 G43.819 Vertigo of central origin 21589610 H81.4 Impacted c erumen of bilateral ears 4122813873 580381 H61.23 653306 Cerumen disimpacte d bilaterall y. He has a naturally small ear canals which will likely be prone to future impaction. Recommende d use of warm water irrigation s to prevent impactions due to hearing aid use. Recommende d against use of Q-tips. Follow-up with physician assistant to the dean in 6 months for next cerumen removal. [...] Santos Member ID Guarantor Name 07/18/2025 1 [employer] [place] (MEDICARE REPLACEMENT/A DVANTAGE - PPO) [id number] Oliverio Deluna [id number] Oliverio Deluna 01/03/2025 1 MEDICARE B-[place]: NATIONAL [employer] Oliverio Deluna [id number] Oliverio Deluna 01/03/[address] [facility] NET PLAN (MEDICAID HMO) [place] Olivreio Deluna [id number] Oliverio Deluna Notes Date Note Type Note [...] turmeric supplementation. Using binaural amplification dispensed at [facility] audiology. Patient comes back for reevaluation [...] fluctuating hearing loss day-to-day EMMIE MCKEON MD [address] [place] [address], [address], [facility] - [facility] 03/15/2024 10:31:37 09/15/2024 text/html 63-year-old male with likely combination of vestibular migraine and left-sided M ni re's disease who turns today for reevaluation. Could not tolerate triamterene/hydrochlo rothiazide due to lightheadedness. Patient had significant improvement with symptoms following migraine diet as well as magnesium and vitamin B2 and turmeric supplementation. Using binaural amplification dispensed at [facility] audiology. Patient comes back for reevaluation [...] and loud noise exposure. EMMIE MCKEON MD [address] [place] [address], [address], [facility] - [facility] 09/15/2024 10:16:01 11/01/2024 text/html Patient with [...] in both ears. EMMIE MCKEON MD [address] [facility],[address], [address], [facility] 11/01/2024 09:47:45 01/03/2025 text/html Patient with [...] last time.Currently using binaural amplification manage at [facility] audiology EMMIE MCKEON MD [address] [facility],[address], [address], [facility] 01/03/2025 11:57:52 07/18/2025 text/html Patient with [...] regard. Currently using binaural amplification manage at [facility] audiology EMMIE MCKEON MD [address] [place] [address], [address], [facility] - [facility] 07/18/2025 11:46:07
== END 2025-07-25 10:15 | disposition home or self-care (01) ==
LOC: HO.HUSH 09:26
PROVIDERS: Visit Provider Nurse Practitioner Family
DX: N28.1 Cyst of kidney, acquired (principal); R35.1 Nocturia; N40.0 Benign prostatic hyperplasia without lower urinary tract symptoms; Z13.9 Encounter for screening, unspecified
CPT/HCPCS: 99213; G2211

== ENCOUNTER → 2025-07-25 09:25 | Outpatient (BNVA) | payer MEDICARE, SELFPAY | PROVIDERS: Visit Provider Nurse Practitioner Family | DX: N40.0 Benign prostatic hyperplasia without lower urinary tract symptoms (principal); N28.1 Cyst of kidney, acquired; R35.1 Nocturia; Z13.9 Encounter for screening, unspecified | CPT/HCPCS: 51798; 81003; 99212 ==